=== PATIENT | male | born 1965 | race Two or more races ===

== ENCOUNTER 2020-05-08 06:20 | Day surgery (SDC) | payer MEDICAID ==
[~2020-05-08] VITALS: Ht 172.7 cm; Wt 90.7 kg
[~2020-05-08 06:20] MED LIST: AMLO5TAB15 PO; ASPI1TAB19 PO; ATOR20TA50 PO; CAR125T; CLOP75TA41 PO; GABA100C9 PO; INSU1INJ19 SC; ONDA-143 PO; TRAM50TA2 PO
[2020-05-08] MEDS ORDERED: SODIUM CHL 0.9% 50 ML ONE (07:59)
[2020-05-08] MEDS ORDERED: VERAPAMIL 2.5MG/ML INJ 2ML VIAL IV ONE (07:59)
[2020-05-08] MEDS ORDERED: MIDAZOLAM HCL 1MG/1ML-2 ML VIAL ONE (07:59)
[2020-05-08] MEDS ORDERED: fentaNYL CITRATE 100 MCG/2 ML VL ONE (07:59)
[2020-05-08] MEDS ORDERED: ANGIOMAX 250 MG VIAL IV ONE (07:59)
[2020-05-08] MEDS ORDERED: LIDOCAINE 2%HCL (LOCAL ANESTH.) INJ 20ML MDV ONE (08:12)
[2020-05-08] MEDS ORDERED: IODIXANOL 320MG/ML 100ML BTL IV ONE (08:12)
[2020-05-08] MEDS ORDERED: CLOPIDOGREL BISULFATE 75 MG TAB ONE (08:46)
[2020-05-08] MEDS ORDERED: ACETAMINOPHEN 500 MG TAB PO PRN (09:15)
[2020-05-08] MEDS ORDERED: HYDROcodone-ACET 5/325MG TAB PO PRN (09:15)
[2020-05-08] MEDS ORDERED: ONDANSETRON HCL 4 MG/2 ML VIAL IV PRN (09:15)
== END 2020-05-08 14:12 | disposition home or self-care (01) ==
LOC: CATH 06:20
PROVIDERS: ATTEND Internal Medicine
DX: R07.89 Other chest pain (principal); I25.10 Atherosclerotic heart disease of native coronary artery without angina pectoris; I11.0 Hypertensive heart disease with heart failure; E78.5 Hyperlipidemia, unspecified; E11.9 Type 2 diabetes mellitus without complications; I62.9 Nontraumatic intracranial hemorrhage, unspecified; F17.200 Nicotine dependence, unspecified, uncomplicated; Z11.59 Encounter for screening for other viral diseases; Z79.82 Long term (current) use of aspirin; Z79.899 Other long term (current) drug therapy; Z98.890 Other specified postprocedural states
CPT/HCPCS: 93005; 93458; C1725; C1760; C1769; C1874; C1887; C1894; C9600; J0583; J1644; J2250; J3010; J7030; Q9967; U0003; 99152; 99153

== ENCOUNTER 2022-03-12 07:27 | Inpatient (IN) | payer MEDICAID, OTHER ==
[~2022-03-12] VITALS: Ht 172.7 cm; Wt 91.6 kg
[~2022-03-12 07:27] MED LIST changes: +AMLO-489 PO; -AMLO5TAB15 PO; -CLOP75TA41 PO; +CLOP75TA70 PO
[2022-03-12] MEDS ORDERED: SODIUM CHLORIDE 0.9% 1,000 ML IV ONE (08:00)
[2022-03-12] MEDS ORDERED: PANTOPRAZOLE 40mg/50ML NS AE 50 ML IV ONE (08:30)
[2022-03-12 09:00] LABS: Basophils # (auto) 0 10 ^3/uL (0-0.2); Basophils % (auto) 0.2 % (0.0-2.0); Eosinophils # (auto) 0 10 ^3/uL (0-0.8)
[2022-03-12 09:03] LABS: Hematocrit 49.8 % (41.0-53.0); Lymphocytes # (auto) 0.9 10 ^3/uL (0.4-5.4); Lymphocytes % (auto) 5.7 % (10.0-50.0); Mean Corpuscular Hemoglobin 32.1 pg (28.0-32.0); Mean Corpuscular Hgb Conc. 36.2 g/dL (32.0-36.0); Mean Corpuscular Volume 88.8 fL (80.0-100.0); Monocytes # (auto) 0.5 10 ^3/uL (0-1.3); Monocytes % (auto) 3.1 % (0.0-12.0); Neutrophils # (auto) 14.6 10 ^3/uL (1.6-8.6); Nucleated Red Blood Cells % 0.4 %; Red Cell Distribution Width 14.9 % (11.8-14.3)
[2022-03-12 09:14] LABS: Albumin 3.9 g/dL (3.4-5.0); Calcium 9.6 mg/dL (8.5-10.1); Potassium 4.1 mmol/L (3.5-5.1)
[2022-03-12 09:19] LABS: BUN/Creatinine Ratio 37.1; Bilirubin, Total 1.2 mg/dL (0.2-1.0)
[2022-03-12 09:21] LABS: INR 1.06 (0.9-1.15); Partial Thromboplastin Time 26.3 sec (23.6-33.0)
[2022-03-12] MEDS ORDERED: MORPHINE SULFATE INJ 2 MG/ml SYRG IV ONE (09:30)
[2022-03-12] MEDS ORDERED: ONDANSETRON HCL 4 MG/2 ML VIAL IV ONE (09:30)
[2022-03-12] MEDS ORDERED: PATIENTS OWN MEDICATION (Clopidogrel Bisulfate (Clopidogrel) 75 MG) PO SCH (10:00)
[2022-03-12] MEDS ORDERED: SUCRALFATE 1 GM/10 ML ORAL SUSP PO ONE (10:45)
[2022-03-12 10:54] LABS: Amylase 34 U/L (25-115); Lipase 44 U/L (73-393)
[2022-03-12] MEDS: CLOPIDOGREL BISULFATE 75 MG TAB PO SCH (11:15)
[2022-03-12] MEDS: ASPirin-EC 81 mg tab PO SCH (11:16)
[2022-03-12] MEDS: CARVEDILOL 12.5 MG TAB PO SCH ×2 (11:18→22:45)
[2022-03-12 11:20] LABS: Urine Bacteria NONE SEEN /hpf (None Seen); Urine Blood Negative /uL (Negative); Urine Specific Gravity 1.035 (1.001-1.035); Urine WBC <1 /hpf (0 - 3)
[2022-03-12] MEDS ORDERED: MORPHINE SULFATE INJ 2 MG/ml SYRG IV PRN (12:15)
[2022-03-12] MEDS ORDERED: NITROGLYCERIN 0.4 MG SL TAB SL PRN (12:15)
[2022-03-12] MEDS ORDERED: DEXTROSE (50%) 50ML SYRG IV PRN (12:15)
[2022-03-12] MEDS: SODIUM CHLORIDE 0.9% 1,000 ML IV SCH ×2 (12:34→20:00)
[2022-03-12] MEDS: METOCLOPRAMIDE HCL 10 MG TAB PO SCH ×2 (14:11→22:45)
[2022-03-12] MEDS: metroNIDAZOLE 500MG/100ML 100 ML IV SCH ×2 (14:11→22:35)
[2022-03-12] MEDS: GABAPENTIN 300 MG CAP PO SCH ×2 (14:11→22:45)
[2022-03-12] MEDS: MORPHINE SULFATE 4 MG/ML SYR/VIAL IV PRN ×2 (14:24→20:27)
[2022-03-12] MEDS: ACCU-CHEK COMFORT CURVE STRIP VI SCH ×2 (16:36→20:33)
[2022-03-12] MEDS: InsuLIN REG 1unit/0.01ml Soln (100units/ml) SC SCH ×2 (16:41→20:34)
[2022-03-12 17:22] LABS: Amphetamine Screen, Urine NEGATIVE (NEGATIVE); Barbiturate Scree,Urine NEGATIVE (NEGATIVE); Benzodiazephine Screen, Urine NEGATIVE (NEGATIVE); Cannabinoid Screen, Urine POSITIVE (NEGATIVE); Cocaine Screen, Urine NEGATIVE (NEGATIVE); Opiate Scree,Urine NEGATIVE (NEGATIVE); Phencyclidine Screen, Urine NEGATIVE (NEGATIVE)
[2022-03-12] MEDS: ATORVASTATIN 20 MG TAB PO SCH (20:25)
[2022-03-12] MEDS: ONDANSETRON HCL 4 MG/2 ML VIAL IV PRN (20:27)
[2022-03-12] MEDS: INSULIN LANTUS (GLARGINE) 1 /0.01ml (100units/ml) SC SCH (20:34)
[2022-03-12 22:00] VITALS: BP 162/91
[2022-03-12] MEDS: PANTOPRAZOLE 40 MG/10 ML VIAL INJ IV SCH (22:35)
[2022-03-12] MEDS: LISINOPRIL 20 MG TAB PO SCH (22:45)
[2022-03-13] VITALS (7 sets, daily range): BP systolic 140–185; BP diastolic 81–101
[2022-03-13] MEDS: ACCU-CHEK COMFORT CURVE STRIP VI SCH ×6 (00:37→20:27)
[2022-03-13] MEDS: MORPHINE SULFATE INJ 2 MG/ml SYRG IV PRN ×5 (00:37→21:48)
[2022-03-13] MEDS: ONDANSETRON HCL 4 MG/2 ML VIAL IV PRN ×4 (00:38→21:49)
[2022-03-13] MEDS: InsuLIN REG 1unit/0.01ml Soln (100units/ml) SC SCH ×6 (00:38→20:37)
[2022-03-13] MEDS: metroNIDAZOLE 500MG/100ML 100 ML IV SCH ×2 (04:53→14:00)
[2022-03-13] MEDS: GABAPENTIN 300 MG CAP PO SCH ×3 (04:53→21:07)
[2022-03-13] MEDS: METOCLOPRAMIDE HCL 10 MG TAB PO SCH ×3 (04:53→21:06)
[2022-03-13] MEDS: INSULIN LANTUS (GLARGINE) 1 /0.01ml (100units/ml) SC SCH ×2 (05:09→21:14)
[2022-03-13 05:11] LABS: Basophils # (auto) 0 10 ^3/uL (0-0.2); Basophils % (auto) 0.3 % (0.0-2.0); Eosinophils # (auto) 0 10 ^3/uL (0-0.8); Eosinophils % (auto) 0.1 % (0.0-7.0); Hematocrit 45.5 % (41.0-53.0); Hemoglobin 15.9 g/dL (13.5-17.5); Lymphocytes # (auto) 1.2 10 ^3/uL (0.4-5.4); Lymphocytes % (auto) 12.7 % (10.0-50.0); Mean Corpuscular Hemoglobin 31.4 pg (28.0-32.0); Mean Corpuscular Volume 89.5 fL (80.0-100.0); Monocytes # (auto) 0.7 10 ^3/uL (0-1.3); Monocytes % (auto) 7.5 % (0.0-12.0); Neutrophils # (auto) 7.7 10 ^3/uL (1.6-8.6); Neutrophils % (auto) 79.4 % (37.0-80.0); Nucleated Red Blood Cells % 0.4 %; Red Blood Cells 5.09 10^6/uL (4.5-5.90); Red Cell Distribution Width 14.6 % (11.8-14.3); White Blood Cell 9.7 10^3/uL (4.4-10.8)
[2022-03-13 05:26] LABS: Albumin 3.3 g/dL (3.4-5.0); Calcium 8.9 mg/dL (8.5-10.1); Potassium 3.2 mmol/L (3.5-5.1)
[2022-03-13 05:29] LABS: BUN/Creatinine Ratio 37.5; Total Protein 6.7 g/dL (6.4-8.2)
[2022-03-13] MEDS: CLOPIDOGREL BISULFATE 75 MG TAB PO SCH (10:00)
[2022-03-13] MEDS: ASPirin-EC 81 mg tab PO SCH (10:00)
[2022-03-13] MEDS: PANTOPRAZOLE 40 MG/10 ML VIAL INJ IV SCH ×2 (10:10→21:08)
[2022-03-13] MEDS: LISINOPRIL 20 MG TAB PO SCH ×2 (10:11→21:07)
[2022-03-13] MEDS: CARVEDILOL 12.5 MG TAB PO SCH ×2 (10:11→21:08)
[2022-03-13] MEDS ORDERED: SODIUM CHLORIDE LOCK 10 ML ONE (13:19)
[2022-03-13] MEDS ORDERED: MIDAZOLAM HCL 5 MG/ML-1ML VIAL ONE (13:19)
[2022-03-13] MEDS ORDERED: LIDOCAINE VISCOUS 2% 15ML UD ONE (13:19)
[2022-03-13] MEDS ORDERED: fentaNYL CITRATE 100 MCG/2 ML VL ONE (13:20)
[2022-03-13] MEDS: SODIUM CHLORIDE 0.9% 1,000 ML IV SCH (14:55)
[2022-03-13] MEDS: SUCRALFATE 1 GM/10 ML ORAL SUSP PO SCH ×2 (17:44→21:06)
[2022-03-13] MEDS: NYSTATIN (MOUTH-THROAT) 500,000 UNITS/5 ML SUSP MT SCH ×2 (18:22→21:06)
[2022-03-13] MEDS: ATORVASTATIN 20 MG TAB PO SCH (18:29)
[2022-03-14] VITALS (7 sets, daily range): BP systolic 142–173; BP diastolic 74–90
[2022-03-14] MEDS: ACCU-CHEK COMFORT CURVE STRIP VI SCH ×5 (00:17→16:52)
[2022-03-14] MEDS: InsuLIN REG 1unit/0.01ml Soln (100units/ml) SC SCH ×5 (00:19→17:30)
[2022-03-14] MEDS: ONDANSETRON HCL 4 MG/2 ML VIAL IV PRN ×2 (02:11→06:13)
[2022-03-14] MEDS: MORPHINE SULFATE INJ 2 MG/ml SYRG IV PRN ×4 (02:12→14:55)
[2022-03-14] MEDS: SUCRALFATE 1 GM/10 ML ORAL SUSP PO SCH ×3 (06:06→16:51)
[2022-03-14] MEDS: GABAPENTIN 300 MG CAP PO SCH ×2 (06:06→14:16)
[2022-03-14] MEDS: NYSTATIN (MOUTH-THROAT) 500,000 UNITS/5 ML SUSP MT SCH ×3 (06:06→16:51)
[2022-03-14] MEDS: METOCLOPRAMIDE HCL 10 MG TAB PO SCH ×2 (06:06→14:17)
[2022-03-14] MEDS: INSULIN LANTUS (GLARGINE) 1 /0.01ml (100units/ml) SC SCH (06:21)
[2022-03-14] MEDS: hydrALAZINE HCL 10 MG TAB PO PRN ×2 (07:11→14:17)
[2022-03-14] MEDS: PANTOPRAZOLE 40 MG/10 ML VIAL INJ IV SCH (09:47)
[2022-03-14] MEDS: CLOPIDOGREL BISULFATE 75 MG TAB PO SCH (09:47)
[2022-03-14] MEDS: ASPirin-EC 81 mg tab PO SCH (09:48)
[2022-03-14] MEDS: LISINOPRIL 20 MG TAB PO SCH (09:48)
[2022-03-14] MEDS: CARVEDILOL 12.5 MG TAB PO SCH (09:48)
[2022-03-14] MEDS ORDERED: PANT40T PO (15:08)
[2022-03-14] MEDS ORDERED: IBUP600T27 PO (15:08)
[2022-03-14] MEDS ORDERED: GABA100C9 PO (15:08)
[2022-03-14] MEDS ORDERED: NYS5LQ MT (15:08)
[2022-03-14] MEDS ORDERED: SUCR1SUS10 PO (15:08)
[2022-03-14] MEDS: ATORVASTATIN 20 MG TAB PO SCH (16:51)
== END 2022-03-14 19:10 | disposition home or self-care (01) | DRG 241 ==
LOC: EDBD 07:27 → ER 07:27 → OVERFLOW 12:02 → CENTRAL 18:46
PROVIDERS: ADMIT Hospitalist; ATTEND Hospitalist
PROC: 0DB68ZX Excision of Stomach, Via Natural or Artificial Opening Endoscopic, Diagnostic (ICD-10-PCS; 2022-03-13)
PROC: 0DB58ZX Excision of Esophagus, Via Natural or Artificial Opening Endoscopic, Diagnostic (ICD-10-PCS; 2022-03-13)
PROC: 0DB98ZX Excision of Duodenum, Via Natural or Artificial Opening Endoscopic, Diagnostic (ICD-10-PCS; principal; 2022-03-13 13:30)
DX: K29.71 Gastritis, unspecified, with bleeding (principal); K22.11 Ulcer of esophagus with bleeding; K76.0 Fatty (change of) liver, not elsewhere classified; Z95.5 Presence of coronary angioplasty implant and graft; K29.80 Duodenitis without bleeding; K29.91 Gastroduodenitis, unspecified, with bleeding; E11.9 Type 2 diabetes mellitus without complications; I16.0 Hypertensive urgency; I25.10 Atherosclerotic heart disease of native coronary artery without angina pectoris; K44.9 Diaphragmatic hernia without obstruction or gangrene; E78.5 Hyperlipidemia, unspecified; Z20.822 Contact with and (suspected) exposure to COVID-19; K29.90 Gastroduodenitis, unspecified, without bleeding; K57.30 Diverticulosis of large intestine without perforation or abscess without bleeding; Z83.3 Family history of diabetes mellitus; Z82.49 Family history of ischemic heart disease and other diseases of the circulatory system; Z87.11 Personal history of peptic ulcer disease
CPT/HCPCS: 36415; 43239; 74176; 80053; 80307; 81001; 82150; 82962; 83690; 84484; 85025; 85610; 85730; 93005; 96361; 96365; 96367; 96372; 96375; C9113; G0378; J1815; J2250; J2405; J3490

== ENCOUNTER 2022-08-28 00:11 | Inpatient (IN) | payer MEDICAID ==
[~2022-08-28] VITALS: Ht 177.8 cm; Wt 96.7 kg
[~2022-08-28 00:11] MED LIST changes: -CAR125T; +CAR125T PO; +IBUP600T27 PO; +NYS5LQ MT; +PANT40T PO; +SUCR1SUS10 PO; -TRAM50TA2 PO
[2022-08-28] MEDS ORDERED: SODIUM CHLORIDE 0.9% 250 ML IV ONE (00:45)
[2022-08-28] MEDS ORDERED: ONDANSETRON HCL 4 MG/2 ML VIAL IV ONE (01:00)
[2022-08-28 01:36] LABS: Basophils # (auto) 0 10 ^3/uL (0-0.2); Basophils % (auto) 0.5 % (0.0-2.0); Eosinophils # (auto) 0 10 ^3/uL (0-0.8); Eosinophils % (auto) 0.3 % (0.0-7.0); Hematocrit 49.4 % (41.0-53.0); Hemoglobin 17.7 g/dL (13.5-17.5); Lymphocytes # (auto) 1.3 10 ^3/uL (0.4-5.4); Lymphocytes % (auto) 16.3 % (10.0-50.0); Mean Corpuscular Hemoglobin 32.2 pg (28.0-32.0); Mean Corpuscular Hgb Conc. 35.9 g/dL (32.0-36.0); Mean Corpuscular Volume 89.7 fL (80.0-100.0); Monocytes # (auto) 0.6 10 ^3/uL (0-1.3); Monocytes % (auto) 7.6 % (0.0-12.0); Neutrophils # (auto) 5.9 10 ^3/uL (1.6-8.6); Neutrophils % (auto) 75.3 % (37.0-80.0); Nucleated Red Blood Cells % 0.1 %; Red Cell Distribution Width 13.6 % (11.8-14.3); White Blood Cell 7.9 10^3/uL (4.4-10.8)
[2022-08-28 02:00] LABS: Albumin 3.8 g/dL (3.4-5.0); BUN/Creatinine Ratio 29.2; Bilirubin, Total 1.3 mg/dL (0.2-1.0); Calcium 9.5 mg/dL (8.5-10.1); Potassium 4.1 mmol/L (3.5-5.1); Total Protein 7.5 g/dL (6.4-8.2)
[2022-08-28] MEDS ORDERED: MORPHINE SULFATE 4 MG/ML SYR/VIAL IM ONE (02:00)
[2022-08-28 02:10] LABS: INR 1.04 (0.9-1.15); Partial Thromboplastin Time 27.9 sec (24.6-33.4)
[2022-08-28 02:51] LABS: Urine Bacteria NONE SEEN /hpf (None Seen); Urine Blood Negative /uL (Negative); Urine Specific Gravity 1.039 (1.001-1.035); Urine WBC 1 /hpf (0 - 3)
[2022-08-28] MEDS ORDERED: amLODIPine BESYLATE 5 MG TAB PO SCH (10:00)
[2022-08-28] MEDS ORDERED: DOCUSATE SOD 100 MG CAP PO PRN (11:30)
[2022-08-28] MEDS: SODIUM CHLORIDE 0.9% 1,000 ML IV SCH ×2 (12:02→21:12)
[2022-08-28] MEDS: ONDANSETRON HCL 4 MG/2 ML VIAL IV PRN ×2 (12:02→17:00)
[2022-08-28] MEDS: MORPHINE SULFATE INJ 2 MG/ml SYRG IV PRN ×3 (12:05→21:11)
[2022-08-28 15:00] VITALS: BP 173/95
[2022-08-28 16:31] VITALS: BP 173/95
[2022-08-28] MEDS ORDERED: hydrALAZINE HCL 20 MG/ML VL IV PRN (16:45)
[2022-08-28] MEDS ORDERED: CARVEDILOL 12.5 MG TAB PO ONE (17:00)
[2022-08-28] MEDS ORDERED: amLODIPine BESYLATE 5 MG TAB PO ONE ×2 (17:00→17:15)
[2022-08-28] MEDS: PANTOPRAZOLE 40 MG TAB PO SCH (17:13)
[2022-08-28] MEDS: SUCRALFATE 1 GM/10 ML ORAL SUSP PO SCH ×2 (17:13→21:54)
[2022-08-28] MEDS ORDERED: DEXTROSE (50%) 50ML SYRG IV PRN ×2 (17:15→18:00)
[2022-08-28 17:55] VITALS: BP 136/100
[2022-08-28] MEDS ORDERED: ACCU-CHEK COMFORT CURVE STRIP VI ONE (18:00)
[2022-08-28] MEDS ORDERED: NYSTATIN (MOUTH-THROAT) 500,000 UNITS/5 ML SUSP MT SCH (18:00)
[2022-08-28] MEDS: InsuLIN REG 1unit/0.01ml Soln (100units/ml) SC SCH ×2 (18:13→21:52)
[2022-08-28] MEDS: ACCU-CHEK COMFORT CURVE STRIP VI SCH ×2 (18:13→21:51)
[2022-08-28] MEDS: ATORVASTATIN 20 MG TAB PO SCH (18:13)
[2022-08-28 20:00] VITALS: BP 163/85
[2022-08-28] MEDS: GABAPENTIN 100 MG CAP PO SCH (21:47)
[2022-08-28] MEDS: CARVEDILOL 12.5 MG TAB PO SCH (21:53)
[2022-08-28 22:00] VITALS: BP 163/85
[2022-08-28] MEDS ORDERED: InsuLIN REG 1unit/0.01ml Soln (100units/ml) SC SCH (22:00)
[2022-08-28] MEDS ORDERED: ACCU-CHEK COMFORT CURVE STRIP VI SCH (22:00)
[2022-08-29] MEDS: SODIUM CHLORIDE 0.9% 1,000 ML IV SCH ×3 (04:20→21:14)
[2022-08-29 05:00] VITALS: BP 167/91
[2022-08-29] MEDS: MORPHINE SULFATE INJ 2 MG/ml SYRG IV PRN ×5 (05:04→23:05)
[2022-08-29] MEDS: ONDANSETRON HCL 4 MG/2 ML VIAL IV PRN ×4 (05:04→18:40)
[2022-08-29] MEDS: GABAPENTIN 100 MG CAP PO SCH ×3 (06:15→21:15)
[2022-08-29] MEDS: PANTOPRAZOLE 40 MG TAB PO SCH ×2 (06:16→18:32)
[2022-08-29] MEDS: SUCRALFATE 1 GM/10 ML ORAL SUSP PO SCH ×4 (06:16→21:14)
[2022-08-29] MEDS: InsuLIN REG 1unit/0.01ml Soln (100units/ml) SC SCH ×4 (06:23→22:42)
[2022-08-29 06:24] LABS: Basophils # (auto) 0 10 ^3/uL (0-0.2); Basophils % (auto) 0.5 % (0.0-2.0); Eosinophils # (auto) 0.1 10 ^3/uL (0-0.8); Eosinophils % (auto) 1.9 % (0.0-7.0); Hematocrit 41.9 % (41.0-53.0); Hemoglobin 14.9 g/dL (13.5-17.5); Lymphocytes # (auto) 1.3 10 ^3/uL (0.4-5.4); Lymphocytes % (auto) 27.1 % (10.0-50.0); Mean Corpuscular Hemoglobin 31.3 pg (28.0-32.0); Mean Corpuscular Hgb Conc. 35.6 g/dL (32.0-36.0); Monocytes # (auto) 0.4 10 ^3/uL (0-1.3); Monocytes % (auto) 8.1 % (0.0-12.0); Neutrophils # (auto) 2.9 10 ^3/uL (1.6-8.6); Neutrophils % (auto) 62.4 % (37.0-80.0); Nucleated Red Blood Cells % 0.1 %; Red Blood Cells 4.77 10^6/uL (4.5-5.90); Red Cell Distribution Width 12.9 % (11.8-14.3); White Blood Cell 4.7 10^3/uL (4.4-10.8)
[2022-08-29] MEDS: ACCU-CHEK COMFORT CURVE STRIP VI SCH ×4 (06:25→22:43)
[2022-08-29 07:18] LABS: Albumin 2.9 g/dL (3.4-5.0); BUN/Creatinine Ratio 29.6; Bilirubin, Total 1.1 mg/dL (0.2-1.0); Calcium 8.4 mg/dL (8.5-10.1); Potassium 3.9 mmol/L (3.5-5.1); Total Protein 5.4 g/dL (6.4-8.2)
[2022-08-29 08:00] VITALS: BP 154/78
[2022-08-29 09:00] VITALS: BP 154/78
[2022-08-29] MEDS: amLODIPine BESYLATE 5 MG TAB PO SCH (09:31)
[2022-08-29] MEDS: CARVEDILOL 12.5 MG TAB PO SCH ×2 (09:41→21:15)
[2022-08-29] MEDS ORDERED: PANTOPRAZOLE 40 MG/10 ML VIAL INJ IV SCH (10:00)
[2022-08-29 13:00] VITALS: BP 131/79
[2022-08-29] MEDS: ATORVASTATIN 20 MG TAB PO SCH (18:39)
[2022-08-29] MEDS: GABAPENTIN 400 MG CAP PO SCH (22:00)
[2022-08-29 22:23] VITALS: BP 139/80
[2022-08-30] MEDS: MORPHINE SULFATE INJ 2 MG/ml SYRG IV PRN ×3 (03:16→12:31)
[2022-08-30 04:57] VITALS: BP 123/75
[2022-08-30 05:32] LABS: Basophils # (auto) 0 10 ^3/uL (0-0.2); Basophils % (auto) 0.6 % (0.0-2.0); Eosinophils # (auto) 0.1 10 ^3/uL (0-0.8); Eosinophils % (auto) 2.7 % (0.0-7.0); Hematocrit 38.8 % (41.0-53.0); Hemoglobin 13.9 g/dL (13.5-17.5); Lymphocytes # (auto) 1.7 10 ^3/uL (0.4-5.4); Mean Corpuscular Hemoglobin 31.4 pg (28.0-32.0); Mean Corpuscular Hgb Conc. 35.9 g/dL (32.0-36.0); Mean Corpuscular Volume 87.5 fL (80.0-100.0); Monocytes # (auto) 0.4 10 ^3/uL (0-1.3); Monocytes % (auto) 8.3 % (0.0-12.0); Neutrophils # (auto) 2.5 10 ^3/uL (1.6-8.6); Neutrophils % (auto) 52.4 % (37.0-80.0); Nucleated Red Blood Cells % 0.1 %; Red Blood Cells 4.43 10^6/uL (4.5-5.90); Red Cell Distribution Width 13.2 % (11.8-14.3); White Blood Cell 4.7 10^3/uL (4.4-10.8)
[2022-08-30 05:48] LABS: BUN/Creatinine Ratio 25.8; Calcium 8.3 mg/dL (8.5-10.1); Potassium 3.7 mmol/L (3.5-5.1)
[2022-08-30] MEDS: SODIUM CHLORIDE 0.9% 1,000 ML IV SCH ×2 (05:55→14:22)
[2022-08-30] MEDS: GABAPENTIN 400 MG CAP PO SCH ×2 (06:00→16:14)
[2022-08-30] MEDS: InsuLIN REG 1unit/0.01ml Soln (100units/ml) SC SCH ×3 (06:16→17:00)
[2022-08-30] MEDS: ACCU-CHEK COMFORT CURVE STRIP VI SCH ×3 (06:16→17:00)
[2022-08-30] MEDS: PANTOPRAZOLE 40 MG TAB PO SCH ×2 (06:16→17:00)
[2022-08-30] MEDS: SUCRALFATE 1 GM/10 ML ORAL SUSP PO SCH ×3 (06:17→17:00)
[2022-08-30 08:00] VITALS: BP 164/97
[2022-08-30] MEDS: ONDANSETRON HCL 4 MG/2 ML VIAL IV PRN ×2 (08:07→12:30)
[2022-08-30 09:00] VITALS: BP 164/97
[2022-08-30] MEDS: amLODIPine BESYLATE 5 MG TAB PO SCH (12:19)
[2022-08-30] MEDS: CARVEDILOL 12.5 MG TAB PO SCH (12:21)
[2022-08-30 13:00] VITALS: BP 158/89
[2022-08-30 17:00] VITALS: BP 164/85
[2022-08-30 17:47] VITALS: BP 141/80
[2022-08-30] MEDS: ATORVASTATIN 20 MG TAB PO SCH (18:00)
== END 2022-08-30 18:50 | disposition home or self-care (01) | DRG 253 ==
LOC: EDBD 00:11 → ER 00:11 → OVERFLOW 11:23 → EAST 15:24
PROVIDERS: ADMIT Nurse Practitioner Family; ATTEND Internal Medicine
DX: K92.0 Hematemesis (principal); E11.40 Type 2 diabetes mellitus with diabetic neuropathy, unspecified; E11.65 Type 2 diabetes mellitus with hyperglycemia; I16.0 Hypertensive urgency; K80.20 Calculus of gallbladder without cholecystitis without obstruction; I25.10 Atherosclerotic heart disease of native coronary artery without angina pectoris; E78.5 Hyperlipidemia, unspecified; F12.90 Cannabis use, unspecified, uncomplicated; G89.29 Other chronic pain; I10 Essential (primary) hypertension; Z20.822 Contact with and (suspected) exposure to COVID-19; Z79.4 Long term (current) use of insulin; Z87.11 Personal history of peptic ulcer disease; Z95.5 Presence of coronary angioplasty implant and graft
CPT/HCPCS: 36415; 76705; 78264; 80048; 80053; 80320; 81001; 83036; 85025; 85610; 85730; 86850; 86900; 86901; 87426; 93005; 96361; 96374; 96375; 99291; 99292; G0378; J1815; J2405

== ENCOUNTER 2022-10-08 02:35 | Inpatient (IN) | payer MEDICAID ==
[~2022-10-08] VITALS: Ht 175.3 cm; Wt 94.3 kg
[~2022-10-08 02:35] MED LIST changes: -IBUP600T27 PO
[2022-10-08] MEDS ORDERED: METOCLOPRAMIDE HCL 5MG/ml INJ 2ml VIAL IV ONE (02:45)
[2022-10-08] MEDS ORDERED: SODIUM CHLORIDE 0.9% 1,000 ML IV ONE (02:45)
[2022-10-08] MEDS ORDERED: PANTOPRAZOLE 80 MG in SODIUM CHL 0.9% 100 ML IV ONE (02:45)
[2022-10-08] MEDS ORDERED: OCTREOTIDE ACETATE 100 MCG in SODIUM CHL 0.9% 50 ML IV ONE (02:45)
[2022-10-08] MEDS ORDERED: PANTOPRAZOLE 40mg/50ML NS AE 50 ML IV ONE (02:45)
[2022-10-08] MEDS ORDERED: IOHEXOL 350 MG/ML 100ML IJ ONE (03:14)
[2022-10-08 03:27] LABS: Basophils # (auto) 0 10 ^3/uL (0-0.2); Basophils % (auto) 0.2 % (0.0-2.0); Eosinophils # (auto) 0 10 ^3/uL (0-0.8); Hematocrit 48.9 % (41.0-53.0); Lymphocytes # (auto) 0.6 10 ^3/uL (0.4-5.4); Lymphocytes % (auto) 4.9 % (10.0-50.0); Mean Corpuscular Hemoglobin 31.6 pg (28.0-32.0); Mean Corpuscular Hgb Conc. 34.7 g/dL (32.0-36.0); Mean Corpuscular Volume 90.9 fL (80.0-100.0); Monocytes # (auto) 0.3 10 ^3/uL (0-1.3); Monocytes % (auto) 2.7 % (0.0-12.0); Neutrophils # (auto) 10.7 10 ^3/uL (1.6-8.6); Neutrophils % (auto) 92.2 % (37.0-80.0); Nucleated Red Blood Cells % 0.2 %; Red Blood Cells 5.38 10^6/uL (4.5-5.90); Red Cell Distribution Width 14.4 % (11.8-14.3); White Blood Cell 11.6 10^3/uL (4.4-10.8)
[2022-10-08] MEDS ORDERED: PANTOPRAZOLE 40 MG/10 ML VIAL INJ IV ONE (03:33)
[2022-10-08 03:34] LABS: Albumin 4.1 g/dL (3.4-5.0); BUN/Creatinine Ratio 26.9; Calcium 9.4 mg/dL (8.5-10.1); Magnesium 2.5 mg/dL (1.6-2.6); Potassium 3.5 mmol/L (3.5-5.1)
[2022-10-08 03:35] LABS: INR 1.01 (0.9-1.15); Partial Thromboplastin Time 26.8 sec (24.6-33.4)
[2022-10-08 03:36] LABS: Bilirubin, Total 1.1 mg/dL (0.2-1.0); Total Protein 7.6 g/dL (6.4-8.2)
[2022-10-08] MEDS ORDERED: OCTREOTIDE ACETATE 100 MCG/ML VL ONE (03:44)
[2022-10-08] MEDS ORDERED: OCTREOTIDE ACETATE 500 MCG/ML VL ONE ×2 (03:44→23:31)
[2022-10-08] MEDS: OCTREOTIDE ACETATE 500 MCG in SODIUM CHL 0.9% 99 ML IV SCH ×3 (04:00→23:53)
[2022-10-08] MEDS ORDERED: ONDANSETRON HCL 4 MG/2 ML VIAL IV ONE (04:00)
[2022-10-08] MEDS ORDERED: MORPHINE SULFATE 4 MG/ML SYR/VIAL IV ONE (04:00)
[2022-10-08] MEDS ORDERED: LACTATED RINGER'S 2,000 ML IV ONE (05:00)
[2022-10-08] MEDS ORDERED: cefTRIAXone 1GM/50ML D5W 50 ML IV ONE (05:00)
[2022-10-08] MEDS ORDERED: InsuLIN REG 1unit/0.01ml Soln (100units/ml) IV ONE (05:00)
[2022-10-08] MEDS ORDERED: MAALOX PLUS or MAALOX 30 ML PO PRN (06:15)
[2022-10-08] MEDS ORDERED: TEMAZEPAM 15 MG CAP PO PRN (06:15)
[2022-10-08] MEDS ORDERED: DOCUSATE SOD 100 MG CAP PO PRN (06:15)
[2022-10-08] MEDS ORDERED: DEXTROSE (50%) 50ML SYRG IV PRN (06:15)
[2022-10-08] MEDS ORDERED: ACETAMINOPHEN 325 MG TAB PO PRN (06:15)
[2022-10-08] MEDS: ACCU-CHEK COMFORT CURVE STRIP VI SCH ×4 (07:00→23:24)
[2022-10-08] MEDS: InsuLIN REG 1unit/0.01ml Soln (100units/ml) SC SCH ×4 (07:04→23:52)
[2022-10-08 07:15] LABS: Basophils # (auto) 0 10 ^3/uL (0-0.2); Basophils % (auto) 0.1 % (0.0-2.0); Eosinophils # (auto) 0 10 ^3/uL (0-0.8); Hematocrit 43.2 % (41.0-53.0); Hemoglobin 15.4 g/dL (13.5-17.5); Lymphocytes # (auto) 0.7 10 ^3/uL (0.4-5.4); Lymphocytes % (auto) 5.9 % (10.0-50.0); Mean Corpuscular Hemoglobin 31.7 pg (28.0-32.0); Mean Corpuscular Hgb Conc. 35.5 g/dL (32.0-36.0); Mean Corpuscular Volume 89.2 fL (80.0-100.0); Monocytes # (auto) 0.4 10 ^3/uL (0-1.3); Monocytes % (auto) 3.3 % (0.0-12.0); Neutrophils # (auto) 10.6 10 ^3/uL (1.6-8.6); Neutrophils % (auto) 90.7 % (37.0-80.0); Nucleated Red Blood Cells % 0.1 %; Red Blood Cells 4.84 10^6/uL (4.5-5.90); Red Cell Distribution Width 14.5 % (11.8-14.3); White Blood Cell 11.7 10^3/uL (4.4-10.8)
[2022-10-08] MEDS: SODIUM CHLORIDE 0.9% 1,000 ML IV SCH ×2 (07:21→16:39)
[2022-10-08 07:37] LABS: Potassium 3.8 mmol/L (3.5-5.1)
[2022-10-08] MEDS: ONDANSETRON HCL 4 MG/2 ML VIAL IV PRN ×4 (07:38→23:54)
[2022-10-08 07:53] LABS: BUN/Creatinine Ratio 26.1
[2022-10-08] MEDS: MORPHINE SULFATE INJ 2 MG/ml SYRG IV PRN ×4 (07:55→23:54)
[2022-10-08] MEDS: PANTOPRAZOLE 40 MG/10 ML VIAL INJ IV SCH ×2 (09:36→23:52)
[2022-10-08 14:19] LABS: Urine Bacteria NONE SEEN /hpf (None Seen); Urine Blood Negative /uL (Negative); Urine WBC 1 /hpf (0 - 3)
[2022-10-08] MEDS ORDERED: amLODIPine BESYLATE 5 MG TAB PO ONE (17:45)
[2022-10-08] MEDS: HYDROcodone-ACET 5/325MG TAB PO PRN (20:51)
[2022-10-08] MEDS ORDERED: hydrALAZINE HCL 20 MG/ML VL IV PRN (21:45)
[2022-10-08] MEDS ORDERED: amLODIPine BESYLATE 5 MG TAB PO SCH (22:00)
[2022-10-09] MEDS ORDERED: hydrALAZINE HCL 20 MG/ML VL IV ONE (02:00)
[2022-10-09] MEDS: MORPHINE SULFATE INJ 2 MG/ml SYRG IV PRN ×4 (05:03→21:45)
[2022-10-09] MEDS: ONDANSETRON HCL 4 MG/2 ML VIAL IV PRN ×4 (05:03→21:44)
[2022-10-09] MEDS: cefTRIAXone 1GM/50ML D5W 50 ML IV SCH (05:08)
[2022-10-09] MEDS: SODIUM CHLORIDE 0.9% 1,000 ML IV SCH ×3 (05:11→22:59)
[2022-10-09] MEDS: ACCU-CHEK COMFORT CURVE STRIP VI SCH ×4 (07:10→22:12)
[2022-10-09] MEDS: InsuLIN REG 1unit/0.01ml Soln (100units/ml) SC SCH ×4 (07:10→22:14)
[2022-10-09] MEDS: LORazepam 0.5 MG TAB PO PRN (08:39)
[2022-10-09] MEDS: OCTREOTIDE ACETATE 500 MCG in SODIUM CHL 0.9% 99 ML IV SCH ×2 (08:59→19:49)
[2022-10-09] MEDS: hydrALAZINE HCL 20 MG/ML VL IV PRN ×2 (09:00→16:48)
[2022-10-09] MEDS: PANTOPRAZOLE 40 MG/10 ML VIAL INJ IV SCH ×2 (10:42→21:44)
[2022-10-09] MEDS ORDERED: SODIUM CHLORIDE LOCK 10 ML ONE (15:08)
[2022-10-09] MEDS ORDERED: LIDOCAINE VISCOUS 2% 15ML UD ONE (15:08)
[2022-10-09] MEDS: fentaNYL CITRATE 100 MCG/2 ML VL ONE ×2 (15:22→15:26)
[2022-10-09] MEDS: diphenhdrAMINE HCL 50 MG/1 ML VL ONE ×2 (15:22→15:24)
[2022-10-09] MEDS: MIDAZOLAM HCL 2MG/2ML 2ml VIAL (1mg/ml) ONE ×2 (15:22→15:38)
[2022-10-09] MEDS: SUCRALFATE 1 GM/10 ML ORAL SUSP PO SCH ×2 (16:45→21:44)
[2022-10-09 17:48] VITALS: BP 163/86
[2022-10-09] MEDS ORDERED: ALBU108A5 PO (19:30)
[2022-10-09] MEDS ORDERED: LISI-287 PO (19:30)
[2022-10-09] MEDS ORDERED: INSU100I44 SC (19:30)
[2022-10-09] MEDS ORDERED: TRAM50TA2 PO (19:30)
[2022-10-09] MEDS ORDERED: ISOS1TAB28 PO (19:30)
[2022-10-09] MEDS ORDERED: GABA800T97 PO (19:30)
[2022-10-09] MEDS ORDERED: SUCR1SUS10 PO (19:30)
[2022-10-09] MEDS ORDERED: PANT40TA2 PO (19:30)
[2022-10-09] MEDS ORDERED: ERTU15TA PO (19:30)
[2022-10-09 22:00] VITALS: BP 198/112
[2022-10-09] MEDS ORDERED: hydrALAZINE HCL 20 MG/ML VL IV PRN (23:15)
[2022-10-10] MEDS: MORPHINE SULFATE INJ 2 MG/ml SYRG IV PRN ×5 (03:15→22:30)
[2022-10-10] MEDS: ONDANSETRON HCL 4 MG/2 ML VIAL IV PRN ×5 (03:16→22:29)
[2022-10-10 05:00] VITALS: BP 201/99
[2022-10-10] MEDS: cefTRIAXone 1GM/50ML D5W 50 ML IV SCH (05:24)
[2022-10-10] MEDS: OCTREOTIDE ACETATE 500 MCG in SODIUM CHL 0.9% 99 ML IV SCH ×2 (05:24→17:44)
[2022-10-10] MEDS: hydrALAZINE HCL 20 MG/ML VL IV PRN (05:35)
[2022-10-10] MEDS: ACCU-CHEK COMFORT CURVE STRIP VI SCH ×4 (06:34→22:19)
[2022-10-10] MEDS: SUCRALFATE 1 GM/10 ML ORAL SUSP PO SCH ×4 (06:35→22:29)
[2022-10-10] MEDS: InsuLIN REG 1unit/0.01ml Soln (100units/ml) SC SCH ×4 (06:35→22:21)
[2022-10-10] MEDS: PANTOPRAZOLE 40 MG/10 ML VIAL INJ IV SCH ×2 (08:34→22:31)
[2022-10-10 08:59] VITALS: BP 180/98
[2022-10-10] MEDS: amLODIPine BESYLATE 5 MG TAB PO SCH (12:56)
[2022-10-10 12:57] VITALS: BP 181/104
[2022-10-10 17:00] VITALS: BP 161/93
[2022-10-10 22:00] VITALS: BP 180/91
[2022-10-11] MEDS: ONDANSETRON HCL 4 MG/2 ML VIAL IV PRN ×5 (02:47→19:54)
[2022-10-11] MEDS: MORPHINE SULFATE INJ 2 MG/ml SYRG IV PRN ×5 (03:03→19:56)
[2022-10-11] MEDS: SODIUM CHLORIDE 0.9% 1,000 ML IV SCH ×2 (04:15→14:15)
[2022-10-11 05:00] VITALS: BP 195/102
[2022-10-11] MEDS: OCTREOTIDE ACETATE 500 MCG in SODIUM CHL 0.9% 99 ML IV SCH ×2 (05:01→11:16)
[2022-10-11] MEDS: hydrALAZINE HCL 20 MG/ML VL IV PRN ×3 (05:02→19:55)
[2022-10-11] MEDS: cefTRIAXone 1GM/50ML D5W 50 ML IV SCH (05:10)
[2022-10-11] MEDS: ACCU-CHEK COMFORT CURVE STRIP VI SCH ×4 (06:21→21:21)
[2022-10-11] MEDS: SUCRALFATE 1 GM/10 ML ORAL SUSP PO SCH ×4 (06:21→21:21)
[2022-10-11] MEDS: InsuLIN REG 1unit/0.01ml Soln (100units/ml) SC SCH ×4 (06:22→21:39)
[2022-10-11] MEDS: amLODIPine BESYLATE 5 MG TAB PO SCH (08:26)
[2022-10-11] MEDS: PANTOPRAZOLE 40 MG/10 ML VIAL INJ IV SCH ×2 (08:27→21:21)
[2022-10-11 09:00] VITALS: BP 178/92
[2022-10-11 13:00] VITALS: BP 170/88
[2022-10-11] MEDS: NYSTATIN (MOUTH-THROAT) 500,000 UNITS/5 ML SUSP MT SCH ×2 (17:30→21:21)
[2022-10-11] MEDS: LORazepam 0.5 MG TAB PO PRN (22:30)
[2022-10-12] VITALS (7 sets, daily range): BP systolic 135–171; BP diastolic 79–92
[2022-10-12] MEDS: SODIUM CHLORIDE 0.9% 1,000 ML IV SCH ×2 (00:15→10:15)
[2022-10-12] MEDS: ONDANSETRON HCL 4 MG/2 ML VIAL IV PRN ×5 (00:17→19:47)
[2022-10-12] MEDS: MORPHINE SULFATE INJ 2 MG/ml SYRG IV PRN ×5 (00:18→19:49)
[2022-10-12] MEDS: hydrALAZINE HCL 20 MG/ML VL IV PRN ×3 (00:19→11:19)
[2022-10-12] MEDS: OCTREOTIDE ACETATE 500 MCG in SODIUM CHL 0.9% 99 ML IV SCH ×4 (00:38→22:33)
[2022-10-12] MEDS: cefTRIAXone 1GM/50ML D5W 50 ML IV SCH (04:31)
[2022-10-12] MEDS: NYSTATIN (MOUTH-THROAT) 500,000 UNITS/5 ML SUSP MT SCH ×4 (05:05→20:59)
[2022-10-12] MEDS: SUCRALFATE 1 GM/10 ML ORAL SUSP PO SCH ×4 (06:23→20:59)
[2022-10-12] MEDS: ACCU-CHEK COMFORT CURVE STRIP VI SCH ×4 (06:45→21:01)
[2022-10-12] MEDS: InsuLIN REG 1unit/0.01ml Soln (100units/ml) SC SCH ×4 (06:53→21:20)
[2022-10-12] MEDS: amLODIPine BESYLATE 5 MG TAB PO SCH (09:01)
[2022-10-12] MEDS: PANTOPRAZOLE 40 MG/10 ML VIAL INJ IV SCH ×2 (09:01→21:00)
[2022-10-12] MEDS: GABAPENTIN 400 MG CAP PO SCH ×2 (15:15→21:00)
[2022-10-12] MEDS: hydrALAZINE HCL 25 MG TAB PO PRN (17:02)
[2022-10-12] MEDS: HYDROcodone-ACET 5/325MG TAB PO PRN (18:43)
[2022-10-13] VITALS (7 sets, daily range): BP systolic 138–162; BP diastolic 75–95
[2022-10-13] MEDS: ONDANSETRON HCL 4 MG/2 ML VIAL IV PRN ×5 (00:24→20:13)
[2022-10-13] MEDS: MORPHINE SULFATE INJ 2 MG/ml SYRG IV PRN ×5 (00:27→20:15)
[2022-10-13] MEDS: hydrALAZINE HCL 25 MG TAB PO PRN ×2 (01:07→08:51)
[2022-10-13] MEDS: HYDROcodone-ACET 5/325MG TAB PO PRN ×2 (03:52→17:31)
[2022-10-13] MEDS: cefTRIAXone 1GM/50ML D5W 50 ML IV SCH (06:00)
[2022-10-13] MEDS: GABAPENTIN 400 MG CAP PO SCH ×3 (06:01→21:23)
[2022-10-13] MEDS: NYSTATIN (MOUTH-THROAT) 500,000 UNITS/5 ML SUSP MT SCH ×4 (06:01→21:22)
[2022-10-13] MEDS: SUCRALFATE 1 GM/10 ML ORAL SUSP PO SCH ×4 (06:26→21:22)
[2022-10-13] MEDS: ACCU-CHEK COMFORT CURVE STRIP VI SCH ×4 (06:26→21:45)
[2022-10-13] MEDS: InsuLIN REG 1unit/0.01ml Soln (100units/ml) SC SCH ×4 (06:28→21:44)
[2022-10-13] MEDS: PANTOPRAZOLE 40 MG/10 ML VIAL INJ IV SCH ×2 (08:47→21:22)
[2022-10-13] MEDS: amLODIPine BESYLATE 5 MG TAB PO SCH (08:50)
[2022-10-13] MEDS: OCTREOTIDE ACETATE 500 MCG in SODIUM CHL 0.9% 99 ML IV SCH (12:06)
[2022-10-13] MEDS: hydrALAZINE HCL 25 MG TAB PO SCH ×2 (12:17→17:31)
[2022-10-13 13:48] LABS: Calcium 8.2 mg/dL (8.5-10.1); Potassium 3.2 mmol/L (3.5-5.1)
[2022-10-13 13:51] LABS: BUN/Creatinine Ratio 15.9
[2022-10-13] MEDS: INSULIN LANTUS (GLARGINE) 1 /0.01ml (100units/ml) SC SCH (21:44)
[2022-10-14] MEDS: ONDANSETRON HCL 4 MG/2 ML VIAL IV PRN ×6 (00:26→23:31)
[2022-10-14] MEDS: MORPHINE SULFATE INJ 2 MG/ml SYRG IV PRN ×6 (00:27→23:32)
[2022-10-14] MEDS: hydrALAZINE HCL 25 MG TAB PO SCH ×5 (00:28→23:30)
[2022-10-14] MEDS: OCTREOTIDE ACETATE 500 MCG in SODIUM CHL 0.9% 99 ML IV SCH ×3 (00:43→18:45)
[2022-10-14 05:00] VITALS: BP 118/65
[2022-10-14] MEDS: cefTRIAXone 1GM/50ML D5W 50 ML IV SCH (05:16)
[2022-10-14] MEDS: NYSTATIN (MOUTH-THROAT) 500,000 UNITS/5 ML SUSP MT SCH ×4 (05:16→21:25)
[2022-10-14] MEDS: GABAPENTIN 400 MG CAP PO SCH ×3 (05:30→21:25)
[2022-10-14] MEDS: SUCRALFATE 1 GM/10 ML ORAL SUSP PO SCH ×4 (06:24→21:25)
[2022-10-14] MEDS: ACCU-CHEK COMFORT CURVE STRIP VI SCH ×4 (06:24→21:25)
[2022-10-14] MEDS: InsuLIN REG 1unit/0.01ml Soln (100units/ml) SC SCH ×4 (06:25→21:28)
[2022-10-14 06:45] LABS: Basophils # (auto) 0 10 ^3/uL (0-0.2); Basophils % (auto) 0.7 % (0.0-2.0); Eosinophils # (auto) 0.2 10 ^3/uL (0-0.8); Eosinophils % (auto) 2.8 % (0.0-7.0); Hematocrit 41.8 % (41.0-53.0); Lymphocytes # (auto) 1.3 10 ^3/uL (0.4-5.4); Lymphocytes % (auto) 23.2 % (10.0-50.0); Mean Corpuscular Hemoglobin 31.6 pg (28.0-32.0); Mean Corpuscular Hgb Conc. 35.9 g/dL (32.0-36.0); Mean Corpuscular Volume 88.1 fL (80.0-100.0); Monocytes # (auto) 0.6 10 ^3/uL (0-1.3); Monocytes % (auto) 10.3 % (0.0-12.0); Neutrophils # (auto) 3.4 10 ^3/uL (1.6-8.6); Nucleated Red Blood Cells % 0.2 %; Red Blood Cells 4.75 10^6/uL (4.5-5.90); Red Cell Distribution Width 13.5 % (11.8-14.3); White Blood Cell 5.4 10^3/uL (4.4-10.8)
[2022-10-14 07:04] LABS: Calcium 8.4 mg/dL (8.5-10.1)
[2022-10-14 07:06] LABS: BUN/Creatinine Ratio 12.9
[2022-10-14 08:00] VITALS: BP 140/75
[2022-10-14] MEDS: PANTOPRAZOLE 40 MG/10 ML VIAL INJ IV SCH ×2 (09:31→21:25)
[2022-10-14] MEDS: amLODIPine BESYLATE 5 MG TAB PO SCH (09:31)
[2022-10-14 12:00] VITALS: BP 168/86
[2022-10-14] MEDS ORDERED: POTASSIUM CHL 20 Meq TABLET PO ONE (15:30)
[2022-10-14 16:00] VITALS: BP 161/93
[2022-10-14 20:00] VITALS: BP 157/90
[2022-10-14] MEDS: INSULIN LANTUS (GLARGINE) 1 /0.01ml (100units/ml) SC SCH (21:28)
[2022-10-14 22:00] VITALS: BP 157/90
[2022-10-15] MEDS: OCTREOTIDE ACETATE 500 MCG in SODIUM CHL 0.9% 99 ML IV SCH ×2 (00:48→14:45)
[2022-10-15] MEDS: HYDROcodone-ACET 5/325MG TAB PO PRN (01:42)
[2022-10-15] MEDS: MORPHINE SULFATE INJ 2 MG/ml SYRG IV PRN ×3 (04:11→13:14)
[2022-10-15] MEDS: ONDANSETRON HCL 4 MG/2 ML VIAL IV PRN ×3 (04:12→13:14)
[2022-10-15] MEDS: cefTRIAXone 1GM/50ML D5W 50 ML IV SCH (04:37)
[2022-10-15 05:00] VITALS: BP 153/80
[2022-10-15] MEDS: NYSTATIN (MOUTH-THROAT) 500,000 UNITS/5 ML SUSP MT SCH ×2 (05:47→12:53)
[2022-10-15] MEDS: GABAPENTIN 400 MG CAP PO SCH ×2 (05:48→14:53)
[2022-10-15] MEDS: SUCRALFATE 1 GM/10 ML ORAL SUSP PO SCH ×2 (05:48→12:53)
[2022-10-15] MEDS: hydrALAZINE HCL 25 MG TAB PO SCH ×3 (05:50→12:53)
[2022-10-15 06:48] LABS: Albumin 2.9 g/dL (3.4-5.0); Calcium 8.1 mg/dL (8.5-10.1); Magnesium 1.6 mg/dL (1.6-2.6); Potassium 3.3 mmol/L (3.5-5.1)
[2022-10-15 06:51] LABS: BUN/Creatinine Ratio 9.7; Bilirubin, Total 0.6 mg/dL (0.2-1.0); Total Protein 5.4 g/dL (6.4-8.2)
[2022-10-15] MEDS: ACCU-CHEK COMFORT CURVE STRIP VI SCH ×2 (06:51→12:53)
[2022-10-15] MEDS: InsuLIN REG 1unit/0.01ml Soln (100units/ml) SC SCH ×2 (06:51→12:54)
[2022-10-15 08:00] VITALS: BP 148/78
[2022-10-15 08:05] LABS: Basophils # (auto) 0.1 10 ^3/uL (0-0.2); Basophils % (auto) 1.5 % (0.0-2.0); Eosinophils # (auto) 0.2 10 ^3/uL (0-0.8); Eosinophils % (auto) 2.9 % (0.0-7.0); Hematocrit 40.9 % (41.0-53.0); Hemoglobin 14.7 g/dL (13.5-17.5); Lymphocytes # (auto) 1.5 10 ^3/uL (0.4-5.4); Lymphocytes % (auto) 24.8 % (10.0-50.0); Mean Corpuscular Hemoglobin 31.6 pg (28.0-32.0); Mean Corpuscular Hgb Conc. 36.1 g/dL (32.0-36.0); Mean Corpuscular Volume 87.5 fL (80.0-100.0); Monocytes # (auto) 0.6 10 ^3/uL (0-1.3); Neutrophils # (auto) 3.8 10 ^3/uL (1.6-8.6); Neutrophils % (auto) 61.8 % (37.0-80.0); Nucleated Red Blood Cells % 0.2 %; Red Blood Cells 4.67 10^6/uL (4.5-5.90); Red Cell Distribution Width 13.6 % (11.8-14.3); White Blood Cell 6.2 10^3/uL (4.4-10.8)
[2022-10-15] MEDS: hydrALAZINE HCL 20 MG/ML VL IV PRN (08:58)
[2022-10-15] MEDS: PANTOPRAZOLE 40 MG/10 ML VIAL INJ IV SCH (08:58)
[2022-10-15 09:00] VITALS: BP 164/86
[2022-10-15] MEDS: amLODIPine BESYLATE 5 MG TAB PO SCH (09:00)
[2022-10-15 10:41] VITALS: BP 148/78
[2022-10-15 13:00] VITALS: BP 148/66
[2022-10-15] MEDS ORDERED: NYS5LQ MT (13:02)
[2022-10-15 14:37] VITALS: BP 148/66
== END 2022-10-15 14:51 | disposition home or self-care (01) | DRG 241 ==
LOC: ER 02:35 → EDBD 02:35 → TELE 06:34 → TELE-CENTR 10-09 17:41
PROVIDERS: ADMIT Hospitalist; ATTEND Internal Medicine
PROC: 0DB68ZX Excision of Stomach, Via Natural or Artificial Opening Endoscopic, Diagnostic (ICD-10-PCS; 2022-10-09)
PROC: 0DB58ZX Excision of Esophagus, Via Natural or Artificial Opening Endoscopic, Diagnostic (ICD-10-PCS; 2022-10-09)
PROC: 0DB98ZX Excision of Duodenum, Via Natural or Artificial Opening Endoscopic, Diagnostic (ICD-10-PCS; principal; 2022-10-09 15:16)
DX: K29.91 Gastroduodenitis, unspecified, with bleeding (principal); K22.11 Ulcer of esophagus with bleeding; E87.20 Acidosis, unspecified; K21.01 Gastro-esophageal reflux disease with esophagitis, with bleeding; D72.829 Elevated white blood cell count, unspecified; E11.65 Type 2 diabetes mellitus with hyperglycemia; K29.71 Gastritis, unspecified, with bleeding; I50.9 Heart failure, unspecified; I11.0 Hypertensive heart disease with heart failure; I25.10 Atherosclerotic heart disease of native coronary artery without angina pectoris; Z20.822 Contact with and (suspected) exposure to COVID-19; K44.9 Diaphragmatic hernia without obstruction or gangrene; Z86.73 Personal history of transient ischemic attack (TIA), and cerebral infarction without residual deficits; Z79.1 Long term (current) use of non-steroidal anti-inflammatories (NSAID); Z87.19 Personal history of other diseases of the digestive system; Z95.5 Presence of coronary angioplasty implant and graft; K29.81 Duodenitis with bleeding
CPT/HCPCS: 36415; 36600; 43239; 71260; 74177; 76705; 80048; 80053; 81001; 82150; 82805; 82962; 83690; 83735; 83880; 84484; 85025; 85610; 85730; 86850; 86900; 86901; 87426; 93005; 96361; 96365; 96366; 96367; 96368; 96375; 99291; C9113; G0378; J0696; J1815; J2250; J2405

== ENCOUNTER 2022-11-06 17:09 | Inpatient (IN) | payer MEDICAID ==
[~2022-11-06] VITALS: Ht 172.7 cm; Wt 95.2 kg
[~2022-11-06 17:09] MED LIST changes: +ALBU108A5 PO; +ERTU15TA PO; -GABA100C9 PO; +GABA800T97 PO; +INSU100I44 SC; +ISOS1TAB28 PO; +LISI-287 PO; -PANT40T PO; +PANT40TA2 PO; +TRAM50TA2 PO
[2022-11-06] MEDS ORDERED: PROCHLORPERAZINE EDISYLATE 5 MG/ML 2ML VIAL IV ONE (18:45)
[2022-11-06] MEDS ORDERED: SODIUM CHLORIDE 0.9% 1,000 ML IV ONE (19:00)
[2022-11-06 20:54] LABS: Eosinophils # (auto) 0 10 ^3/uL (0-0.8); Lymphocytes # (auto) 0.8 10 ^3/uL (0.4-5.4); Lymphocytes % (auto) 7.1 % (10.0-50.0); Monocytes # (auto) 0.2 10 ^3/uL (0-1.3); Monocytes % (auto) 1.8 % (0.0-12.0)
[2022-11-06 20:57] LABS: Basophils # (auto) 0 10 ^3/uL (0-0.2); Basophils % (auto) 0.3 % (0.0-2.0); Hematocrit 51.2 % (41.0-53.0); Mean Corpuscular Hemoglobin 31.7 pg (28.0-32.0); Mean Corpuscular Hgb Conc. 35.1 g/dL (32.0-36.0); Mean Corpuscular Volume 90.2 fL (80.0-100.0); Neutrophils # (auto) 9.7 10 ^3/uL (1.6-8.6); Neutrophils % (auto) 90.8 % (37.0-80.0); Nucleated Red Blood Cells % 0.1 %; Red Blood Cells 5.68 10^6/uL (4.5-5.90); Red Cell Distribution Width 14.5 % (11.8-14.3); White Blood Cell 10.7 10^3/uL (4.4-10.8)
[2022-11-06 21:10] LABS: Albumin 4.1 g/dL (3.4-5.0); Calcium 10.2 mg/dL (8.5-10.1); Magnesium 2.3 mg/dL (1.6-2.6); Potassium 4.2 mmol/L (3.5-5.1)
[2022-11-06 21:14] LABS: BUN/Creatinine Ratio 22.6; Bilirubin, Total 1.1 mg/dL (0.2-1.0); Total Protein 8.5 g/dL (6.4-8.2)
[2022-11-07] VITALS (7 sets, daily range): BP systolic 155–189; BP diastolic 85–103
[2022-11-07] MEDS ORDERED: ONDANSETRON HCL 4 MG/2 ML VIAL IV ONE (03:45)
[2022-11-07] MEDS ORDERED: MORPHINE SULFATE INJ 2 MG/ml SYRG IV ONE (05:15)
[2022-11-07] MEDS ORDERED: HYDROmorphone HCL 2 MG/ML VL/or syr IV ONE (05:45)
[2022-11-07] MEDS ORDERED: METOCLOPRAMIDE HCL 5MG/ml INJ 2ml VIAL IV ONE (05:45)
[2022-11-07] MEDS ORDERED: SODIUM CHLORIDE 0.9% 1,000 ML IV ONE (05:45)
[2022-11-07] MEDS ORDERED: DEXTROSE (50%) 50ML SYRG IV PRN (06:15)
[2022-11-07] MEDS ORDERED: ACETAMINOPHEN 325 MG TAB PO PRN (06:15)
[2022-11-07] MEDS: SUCRALFATE 1 GM TAB PO SCH ×4 (07:02→21:46)
[2022-11-07 08:58] LABS: Urine Bacteria NONE SEEN /hpf (None Seen); Urine Blood Negative /uL (Negative); Urine Specific Gravity 1.037 (1.001-1.035); Urine WBC 1 /hpf (0 - 3)
[2022-11-07 09:29] LABS: Alcohol, Urine < 3.0 mg/dL (0-10); Amphetamine Screen, Urine NEGATIVE (NEGATIVE); Barbiturate Scree,Urine NEGATIVE (NEGATIVE); Benzodiazephine Screen, Urine NEGATIVE (NEGATIVE); Cannabinoid Screen, Urine POSITIVE (NEGATIVE)
[2022-11-07 09:37] LABS: Cocaine Screen, Urine NEGATIVE (NEGATIVE); Opiate Scree,Urine NEGATIVE (NEGATIVE); Phencyclidine Screen, Urine NEGATIVE (NEGATIVE)
[2022-11-07] MEDS: PANTOPRAZOLE 40 MG TAB PO SCH (10:27)
[2022-11-07] MEDS: CLOPIDOGREL BISULFATE 75 MG TAB PO SCH (10:27)
[2022-11-07] MEDS: amLODIPine BESYLATE 5 MG TAB PO SCH (10:28)
[2022-11-07] MEDS: CARVEDILOL 3.125 MG TAB PO SCH ×2 (10:29→21:47)
[2022-11-07] MEDS: HYDROcodone-ACET 5/325MG TAB PO PRN ×2 (11:42→15:58)
[2022-11-07] MEDS: InsuLIN REG 1unit/0.01ml Soln (100units/ml) SC SCH ×2 (11:53→17:43)
[2022-11-07] MEDS: ACCU-CHEK COMFORT CURVE STRIP VI SCH ×2 (11:54→17:43)
[2022-11-07 14:23] LABS: Albumin 3.6 g/dL (3.4-5.0); BUN/Creatinine Ratio 28.3; Calcium 9.2 mg/dL (8.5-10.1); Potassium 3.7 mmol/L (3.5-5.1)
[2022-11-07 14:31] LABS: Bilirubin, Total 0.8 mg/dL (0.2-1.0); Total Protein 7.4 g/dL (6.4-8.2)
[2022-11-07] MEDS: SODIUM CHLORIDE 0.9% 1,000 ML IV SCH ×2 (14:48→20:50)
[2022-11-07] MEDS: ONDANSETRON HCL 4 MG/2 ML VIAL IV PRN ×2 (15:01→20:51)
[2022-11-07] MEDS ORDERED: KETOROLAC TROMETH 30 MG/ML 1ML VIAL IV ONE (18:30)
[2022-11-07] MEDS ORDERED: KETOROLAC TROMETH 30 MG/ML 1ML VIAL IV PRN (18:30)
[2022-11-07] MEDS: traMADol HCL 50 MG TAB PO PRN (20:50)
[2022-11-07] MEDS: cloNIDine HCL 0.1 MG TAB PO PRN (20:52)
[2022-11-07] MEDS ORDERED: ATORVASTATIN 20 MG TAB PO SCH (22:00)
[2022-11-08] MEDS: ACCU-CHEK COMFORT CURVE STRIP VI SCH ×4 (00:08→17:38)
[2022-11-08] MEDS: InsuLIN REG 1unit/0.01ml Soln (100units/ml) SC SCH ×4 (00:11→17:39)
[2022-11-08 05:00] VITALS: BP 168/91
[2022-11-08] MEDS: SODIUM CHLORIDE 0.9% 1,000 ML IV SCH ×3 (05:09→21:59)
[2022-11-08 05:56] LABS: Basophils # (auto) 0 10 ^3/uL (0-0.2); Basophils % (auto) 0.5 % (0.0-2.0); Eosinophils # (auto) 0 10 ^3/uL (0-0.8); Eosinophils % (auto) 0.1 % (0.0-7.0); Hematocrit 43.7 % (41.0-53.0); Lymphocytes % (auto) 10.9 % (10.0-50.0); Mean Corpuscular Hemoglobin 30.9 pg (28.0-32.0); Mean Corpuscular Hgb Conc. 34.2 g/dL (32.0-36.0); Mean Corpuscular Volume 90.3 fL (80.0-100.0); Monocytes # (auto) 0.8 10 ^3/uL (0-1.3); Monocytes % (auto) 8.1 % (0.0-12.0); Neutrophils # (auto) 7.5 10 ^3/uL (1.6-8.6); Neutrophils % (auto) 80.4 % (37.0-80.0); Nucleated Red Blood Cells % 0.1 %; Red Blood Cells 4.84 10^6/uL (4.5-5.90); Red Cell Distribution Width 14.2 % (11.8-14.3); White Blood Cell 9.4 10^3/uL (4.4-10.8)
[2022-11-08 06:01] LABS: BUN/Creatinine Ratio 31.3; Calcium 8.9 mg/dL (8.5-10.1); Potassium 3.6 mmol/L (3.5-5.1)
[2022-11-08] MEDS: SUCRALFATE 1 GM TAB PO SCH ×2 (06:35→12:16)
[2022-11-08] MEDS: cloNIDine HCL 0.1 MG TAB PO PRN ×2 (06:35→12:38)
[2022-11-08] MEDS: traMADol HCL 50 MG TAB PO PRN ×2 (06:36→22:01)
[2022-11-08 08:00] VITALS: BP 181/99
[2022-11-08] MEDS: CLOPIDOGREL BISULFATE 75 MG TAB PO SCH (09:03)
[2022-11-08] MEDS: ONDANSETRON HCL 4 MG/2 ML VIAL IV PRN (09:03)
[2022-11-08] MEDS: CARVEDILOL 3.125 MG TAB PO SCH ×2 (09:06→22:00)
[2022-11-08] MEDS: amLODIPine BESYLATE 5 MG TAB PO SCH (09:07)
[2022-11-08] MEDS: PANTOPRAZOLE 40 MG TAB PO SCH (09:07)
[2022-11-08 12:00] VITALS: BP 167/93
[2022-11-08] MEDS: PROMETHAZINE HCL 25 MG/ML 1ML IV PRN ×2 (12:19→22:01)
[2022-11-08 16:00] VITALS: BP 146/86
[2022-11-08] MEDS: SUCRALFATE 1 GM/10 ML ORAL SUSP PO SCH ×2 (17:33→22:00)
[2022-11-08] MEDS: ATORVASTATIN 20 MG TAB PO SCH (17:34)
[2022-11-08] MEDS: HYDROcodone-ACET 5/325MG TAB PO PRN (17:34)
[2022-11-08 20:00] VITALS: BP 169/94
[2022-11-08 22:00] VITALS: BP 169/94
[2022-11-08] MEDS: GABAPENTIN 400 MG CAP PO SCH (22:00)
[2022-11-09] VITALS (8 sets, daily range): BP systolic 134–186; BP diastolic 81–107
[2022-11-09] MEDS: ACCU-CHEK COMFORT CURVE STRIP VI SCH ×5 (00:33→23:08)
[2022-11-09] MEDS: InsuLIN REG 1unit/0.01ml Soln (100units/ml) SC SCH ×5 (00:38→23:10)
[2022-11-09] MEDS: HYDROcodone-ACET 5/325MG TAB PO PRN ×2 (04:30→14:32)
[2022-11-09] MEDS: GABAPENTIN 400 MG CAP PO SCH ×3 (05:28→21:18)
[2022-11-09] MEDS: SODIUM CHLORIDE 0.9% 1,000 ML IV SCH ×3 (05:28→21:17)
[2022-11-09] MEDS: cloNIDine HCL 0.1 MG TAB PO PRN ×2 (05:37→21:18)
[2022-11-09] MEDS: traMADol HCL 50 MG TAB PO PRN ×2 (06:55→21:19)
[2022-11-09] MEDS: SUCRALFATE 1 GM/10 ML ORAL SUSP PO SCH ×4 (06:55→21:17)
[2022-11-09] MEDS: ISOSORBIDE MONONITRATE ER 60 MG TAB PO SCH (10:06)
[2022-11-09] MEDS: CLOPIDOGREL BISULFATE 75 MG TAB PO SCH (10:06)
[2022-11-09] MEDS: PANTOPRAZOLE 40 MG TAB PO SCH (10:06)
[2022-11-09] MEDS: CARVEDILOL 3.125 MG TAB PO SCH ×2 (10:07→21:18)
[2022-11-09] MEDS: ASPirin-EC 81 mg tab PO SCH (10:07)
[2022-11-09] MEDS: amLODIPine BESYLATE 5 MG TAB PO SCH (10:07)
[2022-11-09] MEDS: ATORVASTATIN 20 MG TAB PO SCH (17:30)
[2022-11-10] MEDS: HYDROcodone-ACET 5/325MG TAB PO PRN ×3 (02:05→16:37)
[2022-11-10 04:02] VITALS: BP 145/83
[2022-11-10] MEDS: SODIUM CHLORIDE 0.9% 1,000 ML IV SCH ×3 (05:24→21:48)
[2022-11-10] MEDS: GABAPENTIN 400 MG CAP PO SCH ×3 (05:31→21:49)
[2022-11-10] MEDS: ACCU-CHEK COMFORT CURVE STRIP VI SCH ×4 (05:31→23:28)
[2022-11-10] MEDS: InsuLIN REG 1unit/0.01ml Soln (100units/ml) SC SCH ×4 (05:34→23:29)
[2022-11-10] MEDS: traMADol HCL 50 MG TAB PO PRN ×2 (05:35→21:50)
[2022-11-10] MEDS: SUCRALFATE 1 GM/10 ML ORAL SUSP PO SCH ×4 (06:11→21:48)
[2022-11-10 07:48] VITALS: BP 155/86
[2022-11-10 09:00] VITALS: BP 177/96
[2022-11-10] MEDS: CLOPIDOGREL BISULFATE 75 MG TAB PO SCH (09:26)
[2022-11-10] MEDS: ISOSORBIDE MONONITRATE ER 60 MG TAB PO SCH (09:27)
[2022-11-10] MEDS: PANTOPRAZOLE 40 MG TAB PO SCH (09:27)
[2022-11-10] MEDS: CARVEDILOL 3.125 MG TAB PO SCH ×2 (09:28→21:49)
[2022-11-10] MEDS: ASPirin-EC 81 mg tab PO SCH (09:29)
[2022-11-10] MEDS: amLODIPine BESYLATE 5 MG TAB PO SCH (09:29)
[2022-11-10 13:00] VITALS: BP 160/83
[2022-11-10 17:00] VITALS: BP 160/84
[2022-11-10] MEDS: ATORVASTATIN 20 MG TAB PO SCH (19:00)
[2022-11-10] MEDS: cloNIDine HCL 0.1 MG TAB PO PRN (21:50)
[2022-11-10 22:04] VITALS: BP 171/81
[2022-11-11] MEDS: HYDROcodone-ACET 5/325MG TAB PO PRN ×2 (01:04→10:49)
[2022-11-11] MEDS: traMADol HCL 50 MG TAB PO PRN (04:54)
[2022-11-11 05:00] VITALS: BP 172/86
[2022-11-11] MEDS: GABAPENTIN 400 MG CAP PO SCH ×2 (05:41→14:00)
[2022-11-11] MEDS: ACCU-CHEK COMFORT CURVE STRIP VI SCH ×2 (05:41→12:13)
[2022-11-11] MEDS: SODIUM CHLORIDE 0.9% 1,000 ML IV SCH ×2 (05:41→12:14)
[2022-11-11] MEDS: InsuLIN REG 1unit/0.01ml Soln (100units/ml) SC SCH ×2 (05:44→12:14)
[2022-11-11] MEDS: SUCRALFATE 1 GM/10 ML ORAL SUSP PO SCH ×2 (06:23→12:11)
[2022-11-11 09:00] VITALS: BP 159/88
[2022-11-11] MEDS: ISOSORBIDE MONONITRATE ER 60 MG TAB PO SCH (10:01)
[2022-11-11] MEDS: ASPirin-EC 81 mg tab PO SCH (10:01)
[2022-11-11] MEDS: CLOPIDOGREL BISULFATE 75 MG TAB PO SCH (10:02)
[2022-11-11] MEDS: CARVEDILOL 3.125 MG TAB PO SCH (10:02)
[2022-11-11] MEDS: amLODIPine BESYLATE 5 MG TAB PO SCH (10:02)
[2022-11-11] MEDS: PANTOPRAZOLE 40 MG TAB PO SCH (10:02)
[2022-11-11 12:48] VITALS: BP 154/83
[2022-11-11 14:50] VITALS: BP 154/83
== END 2022-11-11 16:31 | disposition home or self-care (01) | DRG 241 ==
LOC: ER 17:09 → EDBD 17:09 → EDSEX 17:09 → OVERFLOW 11-07 06:04 → WEST WING 11-07 16:40
PROVIDERS: ADMIT Nurse Practitioner; ATTEND Internal Medicine
DX: K29.70 Gastritis, unspecified, without bleeding (principal); I11.0 Hypertensive heart disease with heart failure; I50.9 Heart failure, unspecified; E11.65 Type 2 diabetes mellitus with hyperglycemia; F12.90 Cannabis use, unspecified, uncomplicated; K20.90 Esophagitis, unspecified without bleeding; I25.10 Atherosclerotic heart disease of native coronary artery without angina pectoris; R11.15 Cyclical vomiting syndrome unrelated to migraine; Z20.822 Contact with and (suspected) exposure to COVID-19; Z79.1 Long term (current) use of non-steroidal anti-inflammatories (NSAID); Z79.4 Long term (current) use of insulin; Z83.3 Family history of diabetes mellitus; Z87.11 Personal history of peptic ulcer disease; Z95.5 Presence of coronary angioplasty implant and graft
CPT/HCPCS: 36415; 78226; 80048; 80053; 80307; 81001; 82962; 83690; 83735; 84484; 85025; 87081; 87426; 93005; 96361; 96374; 96375; 96376; G0378; J1815; J1885; J2405

== ENCOUNTER 2022-12-17 09:05 | Inpatient (IN) | payer MEDICAID ==
[~2022-12-17] VITALS: Ht 167.6 cm; Wt 94.4 kg
[2022-12-17] MEDS ORDERED: ONDANSETRON HCL 4 MG/2 ML VIAL IV ONE ×2 (09:15→11:00)
[2022-12-17] MEDS ORDERED: SODIUM CHLORIDE 0.9% 1,000 ML IV ONE ×2 (09:15)
[2022-12-17 09:46] LABS: Eosinophils # (auto) 0 10 ^3/uL (0-0.8); Hemoglobin 17.7 g/dL (13.5-17.5); Monocytes # (auto) 0.5 10 ^3/uL (0-1.3); Monocytes % (auto) 3.2 % (0.0-12.0)
[2022-12-17 09:48] LABS: Basophils # (auto) 0.1 10 ^3/uL (0-0.2); Basophils % (auto) 0.4 % (0.0-2.0); Hematocrit 50.7 % (41.0-53.0); Lymphocytes # (auto) 0.7 10 ^3/uL (0.4-5.4); Lymphocytes % (auto) 3.9 % (10.0-50.0); Mean Corpuscular Hemoglobin 31.5 pg (28.0-32.0); Mean Corpuscular Hgb Conc. 34.9 g/dL (32.0-36.0); Mean Corpuscular Volume 90.1 fL (80.0-100.0); Neutrophils # (auto) 15.7 10 ^3/uL (1.6-8.6); Neutrophils % (auto) 92.5 % (37.0-80.0); Nucleated Red Blood Cells % 1.4 %; Red Blood Cells 5.63 10^6/uL (4.5-5.90); Red Cell Distribution Width 14.2 % (11.8-14.3)
[2022-12-17 10:15] LABS: INR 1.06 (0.9-1.15); Partial Thromboplastin Time 29.6 sec (24.6-33.4)
[2022-12-17 10:19] LABS: Albumin 4.4 g/dL (3.4-5.0); Bilirubin, Total 1.3 mg/dL (0.2-1.0); Calcium 10.1 mg/dL (8.5-10.1); Potassium 3.6 mmol/L (3.5-5.1); Total Protein 7.8 g/dL (6.4-8.2)
[2022-12-17] MEDS ORDERED: MORPHINE SULFATE 4 MG/ML SYR/VIAL IV ONE (11:00)
[2022-12-17] MEDS ORDERED: InsuLIN REG 1unit/0.01ml Soln (100units/ml) IV ONE (11:00)
[2022-12-17] MEDS ORDERED: cefTRIAXone 1GM/50ML D5W 50 ML IV ONE (12:15)
[2022-12-17] MEDS ORDERED: metroNIDAZOLE 500MG/100ML 100 ML IV ONE (12:15)
[2022-12-17] MEDS ORDERED: PANTOPRAZOLE 40 MG/10 ML VIAL INJ IV ONE (12:45)
[2022-12-17 12:57] LABS: Urine Bacteria NONE SEEN /hpf (None Seen); Urine Blood TRACE /uL (Negative); Urine Hyaline Cast FEW /lpf (0 - 2); Urine Specific Gravity 1.035 (1.001-1.035); Urine WBC <1 /hpf (0 - 3)
[2022-12-17] MEDS ORDERED: LABETALOL HCL 5 MG/ML 4ML SYRINGE IV ONE (13:00)
[2022-12-17] MEDS ORDERED: cloNIDine HCL 0.1 MG TAB PO ONE (16:15)
[2022-12-17] MEDS ORDERED: ACETAMINOPHEN 325 MG TAB PO PRN (18:15)
[2022-12-17] MEDS ORDERED: MORPHINE SULFATE INJ 2 MG/ml SYRG IV PRN (18:15)
[2022-12-17] MEDS ORDERED: NITROGLYCERIN 0.4 MG SL TAB SL PRN (18:15)
[2022-12-17] MEDS: SODIUM CHLORIDE 0.9% 1,000 ML IV SCH (18:26)
[2022-12-17] MEDS: MORPHINE SULFATE INJ 2 MG/ml SYRG IV PRN (21:07)
[2022-12-17] MEDS: SUCRALFATE 1 GM/10 ML ORAL SUSP GT SCH (22:49)
[2022-12-17] MEDS: PANTOPRAZOLE 40 MG TAB PO SCH (22:49)
[2022-12-17] MEDS: ONDANSETRON HCL 4 MG/2 ML VIAL IV PRN (22:52)
[2022-12-18] MEDS ORDERED: hydrALAZINE HCL 20 MG/ML VL IV ONE (00:30)
[2022-12-18] MEDS ORDERED: GABAPENTIN 400 MG CAP PO ONE (00:30)
[2022-12-18] MEDS ORDERED: hydrALAZINE HCL 20 MG/ML VL ONE (00:38)
[2022-12-18] MEDS ORDERED: GABAPENTIN 400 MG CAP ONE (00:40)
[2022-12-18] MEDS: MORPHINE SULFATE INJ 2 MG/ml SYRG IV PRN ×3 (03:15→17:34)
[2022-12-18] MEDS: ONDANSETRON HCL 4 MG/2 ML VIAL IV PRN ×3 (03:15→17:39)
[2022-12-18 05:40] LABS: Basophils # (auto) 0 10 ^3/uL (0-0.2); Basophils % (auto) 0.2 % (0.0-2.0); Eosinophils # (auto) 0 10 ^3/uL (0-0.8); Hematocrit 41.3 % (41.0-53.0); Hemoglobin 14.4 g/dL (13.5-17.5); Lymphocytes # (auto) 0.9 10 ^3/uL (0.4-5.4); Lymphocytes % (auto) 7.4 % (10.0-50.0); Mean Corpuscular Hemoglobin 31.5 pg (28.0-32.0); Mean Corpuscular Hgb Conc. 34.9 g/dL (32.0-36.0); Mean Corpuscular Volume 90.3 fL (80.0-100.0); Monocytes # (auto) 0.7 10 ^3/uL (0-1.3); Monocytes % (auto) 5.3 % (0.0-12.0); Neutrophils # (auto) 11.1 10 ^3/uL (1.6-8.6); Neutrophils % (auto) 87.1 % (37.0-80.0); Red Blood Cells 4.57 10^6/uL (4.5-5.90); White Blood Cell 12.7 10^3/uL (4.4-10.8)
[2022-12-18 05:47] LABS: Potassium 3.6 mmol/L (3.5-5.1)
[2022-12-18 05:55] LABS: Albumin 3.1 g/dL (3.4-5.0); BUN/Creatinine Ratio 39.1; Bilirubin, Total 0.8 mg/dL (0.2-1.0); Calcium 8.3 mg/dL (8.5-10.1); Total Protein 6.3 g/dL (6.4-8.2)
[2022-12-18] MEDS: SODIUM CHLORIDE 0.9% 1,000 ML IV SCH ×4 (07:23→22:18)
[2022-12-18] MEDS: SUCRALFATE 1 GM/10 ML ORAL SUSP GT SCH ×3 (08:49→17:30)
[2022-12-18] MEDS: PANTOPRAZOLE 40 MG TAB PO SCH (11:05)
[2022-12-18] MEDS: hydrALAZINE HCL 20 MG/ML VL IV PRN ×3 (12:12→22:01)
[2022-12-18] MEDS: HYDROcodone-ACET 5/325MG TAB PO PRN ×2 (15:30→20:41)
[2022-12-18 19:08] VITALS: BP 184/90
[2022-12-18 19:42] VITALS: BP 169/89
[2022-12-18] MEDS: SUCRALFATE 1 GM/10 ML ORAL SUSP PO SCH (21:59)
[2022-12-18] MEDS: PANTOPRAZOLE 40 MG/10 ML VIAL INJ IV SCH (21:59)
[2022-12-18 22:00] VITALS: BP 169/89
[2022-12-19] MEDS: ONDANSETRON HCL 4 MG/2 ML VIAL IV PRN ×4 (00:13→17:04)
[2022-12-19] MEDS: MORPHINE SULFATE INJ 2 MG/ml SYRG IV PRN ×6 (00:14→21:43)
[2022-12-19 05:00] VITALS: BP 178/92
[2022-12-19] MEDS: SUCRALFATE 1 GM/10 ML ORAL SUSP PO SCH ×4 (06:38→21:20)
[2022-12-19] MEDS: hydrALAZINE HCL 20 MG/ML VL IV PRN (06:38)
[2022-12-19] MEDS ORDERED: DEXTROSE (50%) 50ML SYRG IV PRN (07:30)
[2022-12-19 08:00] VITALS: BP 172/84
[2022-12-19] MEDS ORDERED: traMADol HCL 50 MG TAB PO PRN (08:45)
[2022-12-19] MEDS: amLODIPine BESYLATE 5 MG TAB PO SCH (09:06)
[2022-12-19] MEDS: ASPirin 81 mg TAB PO SCH (09:07)
[2022-12-19] MEDS: CLOPIDOGREL BISULFATE 75 MG TAB PO SCH (09:26)
[2022-12-19] MEDS: PANTOPRAZOLE 40 MG/10 ML VIAL INJ IV SCH ×2 (09:28→21:20)
[2022-12-19] MEDS: METOPROLOL TARTRATE 25 MG TAB PO SCH ×2 (10:00→21:43)
[2022-12-19] MEDS ORDERED: CARVEDILOL 3.125 MG TAB PO SCH (10:00)
[2022-12-19 12:00] VITALS: BP 175/94
[2022-12-19] MEDS: ACCU-CHEK COMFORT CURVE STRIP VI SCH ×3 (12:07→21:21)
[2022-12-19] MEDS: InsuLIN REG 1unit/0.01ml Soln (100units/ml) SC SCH ×3 (12:07→21:44)
[2022-12-19] MEDS: HYDROcodone-ACET 5/325MG TAB PO PRN ×2 (12:08→20:02)
[2022-12-19] MEDS: SODIUM CHLORIDE 0.9% 1,000 ML IV SCH ×2 (12:19→20:15)
[2022-12-19] MEDS: ISOSORBIDE MONONITRATE ER 60 MG TAB PO SCH (13:01)
[2022-12-19] MEDS: GABAPENTIN 100 MG CAP PO SCH ×2 (13:01→21:21)
[2022-12-19 16:00] VITALS: BP 159/87
[2022-12-19 22:00] VITALS: BP 159/90
[2022-12-20] MEDS: MORPHINE SULFATE INJ 2 MG/ml SYRG IV PRN ×5 (01:53→20:52)
[2022-12-20 03:07] VITALS: BP 159/90
[2022-12-20] MEDS: HYDROcodone-ACET 5/325MG TAB PO PRN ×3 (03:46→23:51)
[2022-12-20] MEDS: SODIUM CHLORIDE 0.9% 1,000 ML IV SCH ×3 (04:12→21:15)
[2022-12-20 05:00] VITALS: BP 164/78
[2022-12-20] MEDS: ACCU-CHEK COMFORT CURVE STRIP VI SCH ×4 (06:06→21:30)
[2022-12-20] MEDS: GABAPENTIN 100 MG CAP PO SCH ×3 (06:06→21:28)
[2022-12-20] MEDS: SUCRALFATE 1 GM/10 ML ORAL SUSP PO SCH ×4 (06:06→21:28)
[2022-12-20] MEDS: InsuLIN REG 1unit/0.01ml Soln (100units/ml) SC SCH ×4 (06:25→21:34)
[2022-12-20] MEDS: hydrALAZINE HCL 20 MG/ML VL IV PRN (06:50)
[2022-12-20] MEDS: CLOPIDOGREL BISULFATE 75 MG TAB PO SCH (08:46)
[2022-12-20] MEDS: amLODIPine BESYLATE 5 MG TAB PO SCH (08:47)
[2022-12-20] MEDS: PANTOPRAZOLE 40 MG/10 ML VIAL INJ IV SCH ×2 (08:47→21:28)
[2022-12-20] MEDS: ISOSORBIDE MONONITRATE ER 60 MG TAB PO SCH (08:48)
[2022-12-20] MEDS: ASPirin 81 mg TAB PO SCH (08:48)
[2022-12-20] MEDS: METOPROLOL TARTRATE 25 MG TAB PO SCH ×2 (08:48→21:28)
[2022-12-20 09:19] VITALS: BP 145/84
[2022-12-20] MEDS: ONDANSETRON HCL 4 MG/2 ML VIAL IV PRN ×2 (12:10→20:49)
[2022-12-20 12:30] VITALS: BP 162/87
[2022-12-20 17:05] VITALS: BP 149/82
[2022-12-20 22:00] VITALS: BP 152/80
[2022-12-21] MEDS: MORPHINE SULFATE INJ 2 MG/ml SYRG IV PRN ×2 (02:31→08:29)
[2022-12-21] MEDS: HYDROcodone-ACET 5/325MG TAB PO PRN ×2 (04:58→12:18)
[2022-12-21 05:06] VITALS: BP 155/85
[2022-12-21] MEDS: SODIUM CHLORIDE 0.9% 1,000 ML IV SCH ×2 (05:20→13:55)
[2022-12-21] MEDS: GABAPENTIN 100 MG CAP PO SCH ×2 (05:56→14:00)
[2022-12-21] MEDS: SUCRALFATE 1 GM/10 ML ORAL SUSP PO SCH ×2 (05:56→12:16)
[2022-12-21] MEDS: ACCU-CHEK COMFORT CURVE STRIP VI SCH ×2 (05:57→12:23)
[2022-12-21] MEDS: InsuLIN REG 1unit/0.01ml Soln (100units/ml) SC SCH ×2 (06:00→12:17)
[2022-12-21] MEDS: ONDANSETRON HCL 4 MG/2 ML VIAL IV PRN (08:28)
[2022-12-21 09:00] VITALS: BP 163/93
[2022-12-21] MEDS: PANTOPRAZOLE 40 MG/10 ML VIAL INJ IV SCH (09:50)
[2022-12-21] MEDS: METOPROLOL TARTRATE 25 MG TAB PO SCH (09:50)
[2022-12-21] MEDS: CLOPIDOGREL BISULFATE 75 MG TAB PO SCH (09:50)
[2022-12-21] MEDS: ASPirin 81 mg TAB PO SCH (09:51)
[2022-12-21] MEDS: amLODIPine BESYLATE 5 MG TAB PO SCH (09:51)
[2022-12-21] MEDS: ISOSORBIDE MONONITRATE ER 60 MG TAB PO SCH (09:53)
[2022-12-21 13:00] VITALS: BP 143/76
[2022-12-21 13:57] VITALS: BP 143/76
== END 2022-12-21 14:10 | disposition home or self-care (01) | DRG 249 ==
LOC: ER 09:05 → EDBD 09:05 → TELE 18:17 → TELE-WESTW 12-18 19:08
PROVIDERS: ADMIT Internal Medicine; ATTEND Internal Medicine
DX: R11.15 Cyclical vomiting syndrome unrelated to migraine (principal); I11.0 Hypertensive heart disease with heart failure; K27.4 Chronic or unspecified peptic ulcer, site unspecified, with hemorrhage; I50.9 Heart failure, unspecified; E11.65 Type 2 diabetes mellitus with hyperglycemia; F12.90 Cannabis use, unspecified, uncomplicated; D72.829 Elevated white blood cell count, unspecified; E78.5 Hyperlipidemia, unspecified; I16.0 Hypertensive urgency; I25.10 Atherosclerotic heart disease of native coronary artery without angina pectoris; Z20.822 Contact with and (suspected) exposure to COVID-19; Z83.3 Family history of diabetes mellitus; Z98.61 Coronary angioplasty status
CPT/HCPCS: 36415; 71045; 74176; 80053; 81001; 82962; 83605; 83880; 84484; 85025; 85610; 85730; 87040; 87426; 93005; 96361; 96365; 96367; 96375; C9113; G0378; J0696; J1815; J2405; J3490

== ENCOUNTER 2023-01-04 17:22 | Inpatient (IN) | payer MEDICAID ==
[~2023-01-04] VITALS: Ht 172.7 cm; Wt 92.6 kg
[2023-01-04 18:56] LABS: Basophils # (auto) 0.1 10 ^3/uL (0-0.2); Basophils % (auto) 0.7 % (0.0-2.0); Eosinophils # (auto) 0 10 ^3/uL (0-0.8); Hematocrit 48.5 % (41.0-53.0); Hemoglobin 17.3 g/dL (13.5-17.5); Lymphocytes # (auto) 0.6 10 ^3/uL (0.4-5.4); Lymphocytes % (auto) 4.3 % (10.0-50.0); Mean Corpuscular Hemoglobin 31.1 pg (28.0-32.0); Mean Corpuscular Hgb Conc. 35.7 g/dL (32.0-36.0); Mean Corpuscular Volume 87.2 fL (80.0-100.0); Monocytes # (auto) 0.3 10 ^3/uL (0-1.3); Monocytes % (auto) 2.4 % (0.0-12.0); Neutrophils # (auto) 12.1 10 ^3/uL (1.6-8.6); Neutrophils % (auto) 92.6 % (37.0-80.0); Nucleated Red Blood Cells % 0.7 %; Red Blood Cells 5.56 10^6/uL (4.5-5.90); Red Cell Distribution Width 14.6 % (11.8-14.3)
[2023-01-04] MEDS ORDERED: SODIUM CHLORIDE 0.9% 1,000 ML IVB ONE (19:00)
[2023-01-04] MEDS ORDERED: PROCHLORPERAZINE EDISYLATE 5 MG/ML 2ML VIAL IM ONE (19:00)
[2023-01-04 20:06] LABS: Albumin 4.3 g/dL (3.4-5.0); Calcium 10.2 mg/dL (8.5-10.1); Magnesium 2.3 mg/dL (1.6-2.6); Potassium 3.6 mmol/L (3.5-5.1)
[2023-01-04 20:09] LABS: BUN/Creatinine Ratio 19.3 (10.0-20.0)
[2023-01-04 20:12] LABS: Bilirubin, Total 1.3 mg/dL (0.2-1.0); Total Protein 7.8 g/dL (6.4-8.2)
[2023-01-05] MEDS ORDERED: PANTOPRAZOLE 40mg/50ML NS AE 50 ML IV ONE
[2023-01-05] MEDS ORDERED: PANTOPRAZOLE 40 MG/10 ML VIAL INJ IV ONE
[2023-01-05] MEDS ORDERED: LACTATED RINGER'S 1,000 ML IV ONE (04:00)
[2023-01-05] MEDS ORDERED: metroNIDAZOLE 500MG/100ML 100 ML IV ONE (04:00)
[2023-01-05] MEDS ORDERED: cefTRIAXone 1GM/50ML D5W 50 ML IV ONE (04:00)
[2023-01-05] MEDS ORDERED: diphenhdrAMINE HCL 50 MG/1 ML VL IV ONE (05:30)
[2023-01-05] MEDS ORDERED: METOCLOPRAMIDE HCL 5MG/ml INJ 2ml VIAL IV ONE (05:30)
[2023-01-05] MEDS ORDERED: ONDANSETRON HCL 4 MG/2 ML VIAL IV ONE (05:30)
[2023-01-05] MEDS ORDERED: DEXTROSE (50%) 50ML SYRG IV PRN (06:00)
[2023-01-05] MEDS ORDERED: ACETAMINOPHEN 325 MG TAB PO PRN (06:00)
[2023-01-05 06:32] LABS: Basophils # (auto) 0 10 ^3/uL (0-0.2); Basophils % (auto) 0.3 % (0.0-2.0); Eosinophils # (auto) 0 10 ^3/uL (0-0.8); Hematocrit 47.6 % (41.0-53.0); Hemoglobin 16.6 g/dL (13.5-17.5); Lymphocytes # (auto) 0.6 10 ^3/uL (0.4-5.4); Lymphocytes % (auto) 4.5 % (10.0-50.0); Mean Corpuscular Hemoglobin 31.6 pg (28.0-32.0); Mean Corpuscular Volume 90.3 fL (80.0-100.0); Monocytes # (auto) 0.6 10 ^3/uL (0-1.3); Neutrophils # (auto) 11.6 10 ^3/uL (1.6-8.6); Neutrophils % (auto) 90.2 % (37.0-80.0); Nucleated Red Blood Cells % 0.9 %; Red Blood Cells 5.27 10^6/uL (4.5-5.90); Red Cell Distribution Width 14.4 % (11.8-14.3); White Blood Cell 12.9 10^3/uL (4.4-10.8)
[2023-01-05] MEDS: metroNIDAZOLE 500MG/100ML 100 ML IV SCH ×3 (06:41→22:34)
[2023-01-05 06:44] LABS: Albumin 3.8 g/dL (3.4-5.0); Calcium 9.6 mg/dL (8.5-10.1); Potassium 3.2 mmol/L (3.5-5.1)
[2023-01-05] MEDS ORDERED: NITROGLYCERIN 0.4 MG SL TAB SL PRN (06:45)
[2023-01-05] MEDS ORDERED: MORPHINE SULFATE INJ 2 MG/ml SYRG IV PRN (06:45)
[2023-01-05] MEDS: ACCU-CHEK COMFORT CURVE STRIP VI SCH ×3 (06:45→18:00)
[2023-01-05] MEDS: InsuLIN REG 1unit/0.01ml Soln (100units/ml) SC SCH ×3 (06:47→18:03)
[2023-01-05 06:49] LABS: BUN/Creatinine Ratio 24.4 (10.0-20.0); Total Protein 7.6 g/dL (6.4-8.2)
[2023-01-05 07:34] LABS: Urine Bacteria NONE SEEN /hpf (None Seen); Urine Blood Negative /uL (Negative); Urine Hyaline Cast FEW /lpf (0 - 2); Urine Specific Gravity 1.034 (1.001-1.035); Urine WBC <1 /hpf (0 - 3)
[2023-01-05] MEDS: LACTATED RINGER'S 1,000 ML IV SCH ×2 (07:52→21:15)
[2023-01-05] MEDS: ONDANSETRON HCL 4 MG/2 ML VIAL IV PRN ×3 (08:32→23:45)
[2023-01-05] MEDS: MORPHINE SULFATE INJ 2 MG/ml SYRG IV PRN ×3 (08:33→23:47)
[2023-01-05] MEDS: PANTOPRAZOLE 40 MG/10 ML VIAL INJ IV SCH ×2 (09:38→22:34)
[2023-01-05] MEDS: hydrALAZINE HCL 20 MG/ML VL IV PRN (10:33)
[2023-01-05] MEDS: HYDROcodone-ACET 5/325MG TAB PO PRN ×2 (14:17→18:59)
[2023-01-06] MEDS: ACCU-CHEK COMFORT CURVE STRIP VI SCH ×5 (00:05→23:35)
[2023-01-06] MEDS: InsuLIN REG 1unit/0.01ml Soln (100units/ml) SC SCH ×5 (00:10→23:39)
[2023-01-06] MEDS: hydrALAZINE HCL 20 MG/ML VL IV PRN ×3 (00:19→14:14)
[2023-01-06] MEDS ORDERED: dilTIAZem 25 MG/5 ML VIAL IV ONE (03:15)
[2023-01-06] MEDS: ONDANSETRON HCL 4 MG/2 ML VIAL IV PRN (04:14)
[2023-01-06] MEDS: MORPHINE SULFATE INJ 2 MG/ml SYRG IV PRN (04:14)
[2023-01-06] MEDS: metroNIDAZOLE 500MG/100ML 100 ML IV SCH ×2 (05:35→14:00)
[2023-01-06 05:37] LABS: Basophils # (auto) 0 10 ^3/uL (0-0.2); Basophils % (auto) 0.2 % (0.0-2.0); Eosinophils # (auto) 0 10 ^3/uL (0-0.8); Hematocrit 44.9 % (41.0-53.0); Lymphocytes # (auto) 0.8 10 ^3/uL (0.4-5.4); Lymphocytes % (auto) 5.8 % (10.0-50.0); Mean Corpuscular Hemoglobin 31.5 pg (28.0-32.0); Mean Corpuscular Hgb Conc. 35.6 g/dL (32.0-36.0); Mean Corpuscular Volume 88.6 fL (80.0-100.0); Monocytes # (auto) 0.6 10 ^3/uL (0-1.3); Monocytes % (auto) 4.3 % (0.0-12.0); Neutrophils # (auto) 12.6 10 ^3/uL (1.6-8.6); Neutrophils % (auto) 89.7 % (37.0-80.0); Nucleated Red Blood Cells % 0.4 %; Red Blood Cells 5.07 10^6/uL (4.5-5.90); Red Cell Distribution Width 14.5 % (11.8-14.3)
[2023-01-06 05:51] LABS: Potassium 3.2 mmol/L (3.5-5.1)
[2023-01-06 05:58] LABS: Albumin 3.6 g/dL (3.4-5.0); BUN/Creatinine Ratio 43.4 (10.0-20.0); Calcium 9.6 mg/dL (8.5-10.1); Total Protein 7.4 g/dL (6.4-8.2)
[2023-01-06] MEDS: LACTATED RINGER'S 1,000 ML IV SCH ×2 (08:40→23:28)
[2023-01-06] MEDS: POTASSIUM CHL 20MEQ/100ML 100 ML IV SCH ×2 (09:01→10:54)
[2023-01-06] MEDS: PANTOPRAZOLE 40 MG/10 ML VIAL INJ IV SCH ×2 (09:02→22:49)
[2023-01-06] MEDS ORDERED: cefTRIAXone 1GM/50ML D5W 50 ML IV ONE (14:00)
[2023-01-06 16:22] LABS: Amphetamine Screen, Urine NEGATIVE (NEGATIVE); Barbiturate Scree,Urine NEGATIVE (NEGATIVE); Benzodiazephine Screen, Urine NEGATIVE (NEGATIVE); Cannabinoid Screen, Urine POSITIVE (NEGATIVE); Cocaine Screen, Urine NEGATIVE (NEGATIVE); Opiate Scree,Urine NEGATIVE (NEGATIVE); Phencyclidine Screen, Urine NEGATIVE (NEGATIVE)
[2023-01-06] MEDS: METOCLOPRAMIDE HCL 5MG/ml INJ 2ml VIAL IV SCH ×2 (17:20→23:35)
[2023-01-06] MEDS: SUCRALFATE 1 GM/10 ML ORAL SUSP PO SCH (17:20)
[2023-01-06] MEDS: ATORVASTATIN 20 MG TAB PO SCH (17:21)
[2023-01-06] MEDS: HYDROcodone-ACET 5/325MG TAB PO PRN (17:21)
[2023-01-06] MEDS ORDERED: amLODIPine BESYLATE 5 MG TAB PO SCH (22:00)
[2023-01-06] MEDS: LISINOPRIL PO SCH (22:00)
[2023-01-06] MEDS ORDERED: CARVEDILOL 12.5 MG TAB PO SCH (22:00)
[2023-01-06] MEDS: HYDROCHLOROTHIAZI PO SCH (22:00)
[2023-01-06] MEDS: CARVEDILOL 12.5 MG TAB PO SCH (22:50)
[2023-01-06 23:00] VITALS: BP 188/87
[2023-01-06 23:18] VITALS: BP 157/81
[2023-01-07] VITALS (7 sets, daily range): BP systolic 138–181; BP diastolic 64–94
[2023-01-07] MEDS: HYDROcodone-ACET 5/325MG TAB PO PRN ×4 (02:17→21:49)
[2023-01-07] MEDS: hydrALAZINE HCL 20 MG/ML VL IV PRN (04:30)
[2023-01-07] MEDS: METOCLOPRAMIDE HCL 5MG/ml INJ 2ml VIAL IV SCH ×4 (05:46→23:32)
[2023-01-07] MEDS: ACCU-CHEK COMFORT CURVE STRIP VI SCH ×4 (05:47→23:32)
[2023-01-07] MEDS: InsuLIN REG 1unit/0.01ml Soln (100units/ml) SC SCH ×4 (05:59→23:35)
[2023-01-07] MEDS: SUCRALFATE 1 GM/10 ML ORAL SUSP PO SCH ×3 (06:26→17:59)
[2023-01-07] MEDS: PANTOPRAZOLE 40 MG/10 ML VIAL INJ IV SCH ×2 (09:49→21:29)
[2023-01-07] MEDS: amLODIPine BESYLATE 5 MG TAB PO SCH (09:51)
[2023-01-07] MEDS: ISOSORBIDE MONONITRATE ER 60 MG TAB PO SCH (09:52)
[2023-01-07] MEDS: CARVEDILOL 12.5 MG TAB PO SCH ×2 (09:52→10:55)
[2023-01-07] MEDS: LISINOPRIL PO SCH ×2 (10:00→21:29)
[2023-01-07] MEDS: HYDROCHLOROTHIAZI PO SCH ×2 (10:00→21:29)
[2023-01-07] MEDS: NYSTATIN (MOUTH-THROAT) 500,000 UNITS/5 ML SUSP MT SCH ×3 (11:58→21:29)
[2023-01-07] MEDS: ATORVASTATIN 20 MG TAB PO SCH (18:04)
[2023-01-07] MEDS: INSULIN LANTUS (GLARGINE) 1 /0.01ml (100units/ml) SC SCH (21:31)
[2023-01-07] MEDS: metroNIDAZOLE 500 MG TAB PO SCH (21:43)
[2023-01-08] MEDS: HYDROcodone-ACET 5/325MG TAB PO PRN ×3 (03:30→14:11)
[2023-01-08] MEDS: hydrALAZINE HCL 20 MG/ML VL IV PRN (03:59)
[2023-01-08 04:48] VITALS: BP 172/86
[2023-01-08] MEDS: metroNIDAZOLE 500 MG TAB PO SCH ×2 (05:50→13:14)
[2023-01-08] MEDS: NYSTATIN (MOUTH-THROAT) 500,000 UNITS/5 ML SUSP MT SCH ×2 (05:50→12:34)
[2023-01-08] MEDS: METOCLOPRAMIDE HCL 5MG/ml INJ 2ml VIAL IV SCH ×2 (05:50→12:34)
[2023-01-08] MEDS: ACCU-CHEK COMFORT CURVE STRIP VI SCH ×2 (05:55→12:00)
[2023-01-08] MEDS: InsuLIN REG 1unit/0.01ml Soln (100units/ml) SC SCH ×2 (06:16→12:40)
[2023-01-08] MEDS: INSULIN LANTUS (GLARGINE) 1 /0.01ml (100units/ml) SC SCH (06:17)
[2023-01-08] MEDS: SUCRALFATE 1 GM/10 ML ORAL SUSP PO SCH ×2 (06:17→11:30)
[2023-01-08 09:00] VITALS: BP 180/100
[2023-01-08] MEDS: PANTOPRAZOLE 40 MG/10 ML VIAL INJ IV SCH (09:28)
[2023-01-08] MEDS: ISOSORBIDE MONONITRATE ER 60 MG TAB PO SCH (09:30)
[2023-01-08] MEDS: amLODIPine BESYLATE 5 MG TAB PO SCH (09:31)
[2023-01-08] MEDS: CARVEDILOL 12.5 MG TAB PO SCH (09:31)
[2023-01-08] MEDS ORDERED: PATIENTS OWN MEDICATION (Clopidogrel Bisulfate (Clopidogrel) 75 MG) PO SCH (10:00)
[2023-01-08] MEDS ORDERED: CLOPIDOGREL BISULFATE 75 MG TAB PO SCH (10:00)
[2023-01-08] MEDS ORDERED: HCTZ 25 MG TAB PO SCH (10:00)
[2023-01-08] MEDS ORDERED: LISINOPRIL 20 MG TAB PO SCH (10:00)
[2023-01-08] MEDS ORDERED: ASPirin-EC 81 mg tab PO SCH (10:00)
[2023-01-08 13:00] VITALS: BP 137/83
[2023-01-08] MEDS ORDERED: GABAPENTIN 400 MG CAP PO ONE (14:30)
[2023-01-08 14:33] VITALS: BP 137/83
[2023-01-08] MEDS ORDERED: GABAPENTIN 400 MG CAP PO SCH (22:00)
== END 2023-01-08 15:59 | disposition home or self-care (01) | DRG 241 ==
LOC: ER 17:22 → TELE 01-05 06:46 → TELE-WESTW 01-06 20:07 → WEST WING 01-08 01:50
PROVIDERS: ADMIT Nurse Practitioner Family; ATTEND Hospitalist
DX: K29.70 Gastritis, unspecified, without bleeding (principal); I11.0 Hypertensive heart disease with heart failure; K22.10 Ulcer of esophagus without bleeding; K80.20 Calculus of gallbladder without cholecystitis without obstruction; I25.10 Atherosclerotic heart disease of native coronary artery without angina pectoris; J98.11 Atelectasis; K21.00 Gastro-esophageal reflux disease with esophagitis, without bleeding; K29.80 Duodenitis without bleeding; K44.9 Diaphragmatic hernia without obstruction or gangrene; K52.9 Noninfective gastroenteritis and colitis, unspecified; Z20.822 Contact with and (suspected) exposure to COVID-19; E11.65 Type 2 diabetes mellitus with hyperglycemia
CPT/HCPCS: 36415; 71045; 74176; 80053; 80307; 81001; 82962; 83690; 83735; 83880; 84484; 85025; 85048; 85610; 85730; 87081; 87426; 93005; 96365; 96375; 99291; C9113; G0378; J0696; J1815; J2405; J3480; J3490

== ENCOUNTER 2023-02-08 09:38 | Inpatient (IN) | payer MEDICAID ==
[~2023-02-08] VITALS: Ht 172.7 cm; Wt 88.6 kg
[2023-02-08] MEDS: D5W/SOD CHL 0.45% 1,000 ML IV SCH (00:28)
[2023-02-08 10:16] LABS: Basophils # (auto) 0 10 ^3/uL (0-0.2); Basophils % (auto) 0.2 % (0.0-2.0); Eosinophils # (auto) 0 10 ^3/uL (0-0.8); Lymphocytes # (auto) 0.8 10 ^3/uL (0.4-5.4); Neutrophils # (auto) 9.5 10 ^3/uL (1.6-8.6)
[2023-02-08 10:17] LABS: Hematocrit 51.1 % (41.0-53.0); Hemoglobin 17.9 g/dL (13.5-17.5); Lymphocytes % (auto) 7.4 % (10.0-50.0); Mean Corpuscular Hemoglobin 30.8 pg (28.0-32.0); Mean Corpuscular Volume 88.1 fL (80.0-100.0); Monocytes # (auto) 0.6 10 ^3/uL (0-1.3); Monocytes % (auto) 5.1 % (0.0-12.0); Neutrophils % (auto) 87.3 % (37.0-80.0); Nucleated Red Blood Cells % 0.1 %; Red Blood Cells 5.81 10^6/uL (4.5-5.90); Red Cell Distribution Width 15.1 % (11.8-14.3); White Blood Cell 10.9 10^3/uL (4.4-10.8)
[2023-02-08 10:42] LABS: Albumin 4.5 g/dL (3.4-5.0); Potassium 3.5 mmol/L (3.5-5.1)
[2023-02-08 10:45] LABS: BUN/Creatinine Ratio 30.1 (10.0-20.0); Bilirubin, Total 1.4 mg/dL (0.2-1.0)
[2023-02-08 10:50] LABS: Urine Bacteria NONE SEEN /hpf (None Seen); Urine Blood Negative /uL (Negative); Urine Specific Gravity 1.029 (1.001-1.035); Urine WBC <1 /hpf (0 - 3)
[2023-02-08] MEDS ORDERED: SODIUM CHLORIDE 0.9% 1,000 ML IV ONE (11:00)
[2023-02-08] MEDS ORDERED: ONDANSETRON HCL 4 MG/2 ML VIAL IM ONE (11:00)
[2023-02-08] MEDS ORDERED: SODIUM BICARBONATE 8.4 % INJ 50ML VIAL IV ONE (11:15)
[2023-02-08] MEDS ORDERED: POTASSIUM CHL 20MEQ/100ML 100 ML IV PRN (11:15)
[2023-02-08] MEDS ORDERED: DEXTROSE (50%) 50ML SYRG IV PRN ×2 (11:15→23:45)
[2023-02-08] MEDS ORDERED: InsuLIN R (HUMAN) 100 UNITS in SODIUM CHL 0.9% 99 ML IV SCH (11:15)
[2023-02-08] MEDS: ACCU-CHEK COMFORT CURVE STRIP VI SCH ×8 (12:00→22:34)
[2023-02-08 12:14] LABS: Lactic Acid w/Reflex 4.4 mmol/L (0.4-2.0)
[2023-02-08 12:22] LABS: Magnesium 2.9 mg/dL (1.6-2.6); Phosphorus 5.2 mg/dL (2.5-4.90)
[2023-02-08] MEDS: SODIUM CHLORIDE 0.9% 1,000 ML IV SCH ×4 (12:56→20:24)
[2023-02-08] MEDS ORDERED: MORPHINE SULFATE INJ 2 MG/ml SYRG IV PRN (13:15)
[2023-02-08] MEDS ORDERED: NITROGLYCERIN 0.4 MG SL TAB SL PRN (13:15)
[2023-02-08] MEDS ORDERED: ACETAMINOPHEN 325 MG TAB PO PRN (13:15)
[2023-02-08] MEDS ORDERED: ALBUTEROL SULF 2.5 MG/0.5ML(0.5%) NEB SOLN NEB PRN (13:15)
[2023-02-08] MEDS ORDERED: DOCUSATE SOD 100 MG CAP PO PRN (13:15)
[2023-02-08] MEDS: ONDANSETRON HCL 4 MG/2 ML VIAL IV PRN ×2 (14:11→21:41)
[2023-02-08] MEDS: HYDROcodone-ACET 5/325MG TAB PO PRN ×2 (14:39→21:41)
[2023-02-08 15:01] LABS: Potassium 3.1 mmol/L (3.5-5.1)
[2023-02-08 15:04] LABS: BUN/Creatinine Ratio 36.4 (10.0-20.0); Calcium 9.6 mg/dL (8.5-10.1)
[2023-02-08] MEDS ORDERED: SODIUM CHLORIDE 0.9% 1,000 ML IV SCH ×2 (15:15→17:15)
[2023-02-08] MEDS: SUCRALFATE 1 GM/10 ML ORAL SUSP PO SCH ×2 (18:27→21:41)
[2023-02-08] MEDS: ATORVASTATIN 20 MG TAB PO SCH (18:27)
[2023-02-08 18:43] LABS: Calcium 8.9 mg/dL (8.5-10.1); Potassium 3.2 mmol/L (3.5-5.1)
[2023-02-08 18:45] LABS: BUN/Creatinine Ratio 46.6 (10.0-20.0)
[2023-02-08] MEDS: CARVEDILOL 12.5 MG TAB PO SCH (21:42)
[2023-02-08] MEDS: amLODIPine BESYLATE 5 MG TAB PO SCH (21:43)
[2023-02-08 22:35] LABS: BUN/Creatinine Ratio 43.9 (10.0-20.0); Calcium 8.9 mg/dL (8.5-10.1)
[2023-02-09] MEDS: ACCU-CHEK COMFORT CURVE STRIP VI SCH ×6 (00:56→17:12)
[2023-02-09] MEDS: InsuLIN REG 1unit/0.01ml Soln (100units/ml) SC SCH ×5 (01:00→16:00)
[2023-02-09 02:22] LABS: BUN/Creatinine Ratio 47.1 (10.0-20.0); Calcium 8.9 mg/dL (8.5-10.1); Potassium 3.2 mmol/L (3.5-5.1)
[2023-02-09 03:45] VITALS: BP 139/74
[2023-02-09] MEDS: HYDROcodone-ACET 5/325MG TAB PO PRN ×3 (04:36→18:00)
[2023-02-09 06:04] LABS: Basophils # (auto) 0 10 ^3/uL (0-0.2); Basophils % (auto) 0.2 % (0.0-2.0); Eosinophils # (auto) 0 10 ^3/uL (0-0.8); Hematocrit 40.5 % (41.0-53.0); Hemoglobin 14.3 g/dL (13.5-17.5); Lymphocytes # (auto) 0.9 10 ^3/uL (0.4-5.4); Lymphocytes % (auto) 8.4 % (10.0-50.0); Mean Corpuscular Hemoglobin 31.1 pg (28.0-32.0); Mean Corpuscular Hgb Conc. 35.4 g/dL (32.0-36.0); Mean Corpuscular Volume 87.9 fL (80.0-100.0); Monocytes # (auto) 0.9 10 ^3/uL (0-1.3); Monocytes % (auto) 7.8 % (0.0-12.0); Neutrophils # (auto) 9.2 10 ^3/uL (1.6-8.6); Neutrophils % (auto) 83.6 % (37.0-80.0); Nucleated Red Blood Cells % 0.1 %; Red Blood Cells 4.61 10^6/uL (4.5-5.90); Red Cell Distribution Width 14.8 % (11.8-14.3); White Blood Cell 11.1 10^3/uL (4.4-10.8)
[2023-02-09 06:23] LABS: BUN/Creatinine Ratio 48.4 (10.0-20.0); Calcium 8.2 mg/dL (8.5-10.1); Potassium 3.2 mmol/L (3.5-5.1)
[2023-02-09] MEDS: SUCRALFATE 1 GM/10 ML ORAL SUSP PO SCH ×3 (06:51→17:51)
[2023-02-09 09:00] VITALS: BP 167/84
[2023-02-09] MEDS: SODIUM CHLORIDE 0.9% 1,000 ML IV SCH ×2 (09:05→12:47)
[2023-02-09] MEDS: D5W/SOD CHL 0.45% 1,000 ML IV SCH (09:06)
[2023-02-09] MEDS ORDERED: PANTOPRAZOLE 40 MG TAB PO SCH (10:00)
[2023-02-09] MEDS ORDERED: CLOPIDOGREL BISULFATE 75 MG TAB PO SCH (10:00)
[2023-02-09] MEDS ORDERED: ASPirin-EC 81 mg tab PO SCH (10:00)
[2023-02-09] MEDS: CARVEDILOL 12.5 MG TAB PO SCH (10:11)
[2023-02-09] MEDS: amLODIPine BESYLATE 5 MG TAB PO SCH (10:12)
[2023-02-09] MEDS: ONDANSETRON HCL 4 MG/2 ML VIAL IV PRN (10:15)
[2023-02-09 10:49] LABS: Calcium 8.4 mg/dL (8.5-10.1); Potassium 3.3 mmol/L (3.5-5.1)
[2023-02-09] MEDS ORDERED: POTASSIUM CHL 20MEQ/100ML 100 ML IV ONE (11:45)
[2023-02-09] MEDS ORDERED: INSULIN LANTUS (GLARGINE) 1 /0.01ml (100units/ml) SC SCH (11:45)
[2023-02-09 13:00] VITALS: BP 174/83
[2023-02-09] MEDS ORDERED: hydrALAZINE HCL 20 MG/ML VL IV PRN (14:15)
[2023-02-09] MEDS ORDERED: LISINOPRIL 20 MG TAB PO ONE (14:15)
[2023-02-09 14:34] LABS: BUN/Creatinine Ratio 42.6 (10.0-20.0); Calcium 8.6 mg/dL (8.5-10.1); Potassium 3.4 mmol/L (3.5-5.1)
[2023-02-09 17:11] VITALS: BP 141/71
[2023-02-09] MEDS: ATORVASTATIN 20 MG TAB PO SCH (17:51)
[2023-02-09 18:39] LABS: Calcium 8.5 mg/dL (8.5-10.1); Potassium 3.4 mmol/L (3.5-5.1)
[2023-02-09 18:49] VITALS: BP 141/71
[2023-02-10] MEDS ORDERED: LISINOPRIL 20 MG TAB PO SCH (10:00)
== END 2023-02-09 20:45 | disposition home or self-care (01) | DRG 420 ==
LOC: ER 09:38 → TELE 13:14 → TELE-WESTW 02-09 08:46
PROVIDERS: ADMIT Internal Medicine; ATTEND Internal Medicine
DX: E11.10 Type 2 diabetes mellitus with ketoacidosis without coma (principal); N17.9 Acute kidney failure, unspecified; I11.0 Hypertensive heart disease with heart failure; I50.9 Heart failure, unspecified; E78.5 Hyperlipidemia, unspecified; I25.10 Atherosclerotic heart disease of native coronary artery without angina pectoris; K80.20 Calculus of gallbladder without cholecystitis without obstruction; E87.6 Hypokalemia; Z86.73 Personal history of transient ischemic attack (TIA), and cerebral infarction without residual deficits; Z91.199 Patient's noncompliance with other medical treatment and regimen due to unspecified reason; Z98.61 Coronary angioplasty status
CPT/HCPCS: 36415; 36600; 71045; 74176; 80048; 80053; 81001; 82010; 82805; 82962; 83605; 83690; 83735; 83930; 84100; 84484; 85025; 87040; 87081; 93005; 96365; 96366; G0378; J1815; J2405; J3480

== ENCOUNTER 2023-04-13 16:11 | Emergency (ER) | payer SELFPAY ==
[~2023-04-13] VITALS: Ht 172.7 cm; Wt 94.1 kg
[~2023-04-13 16:11] MED LIST changes: -AMLO-489 PO; +AMLO1TAB22 PO; -INSU100I44 SC; +INSU100I54 SC; -NYS5LQ MT; -SUCR1SUS10 PO; +SUCR1SUS26 PO
[2023-04-13 17:01] LABS: Basophils # (auto) 0.1 10 ^3/uL (0-0.2); Basophils % (auto) 1.5 % (0.0-2.0); Eosinophils # (auto) 0.2 10 ^3/uL (0-0.8); Eosinophils % (auto) 3.6 % (0.0-7.0); Hematocrit 43.3 % (41.0-53.0); Hemoglobin 15.2 g/dL (13.5-17.5); Lymphocytes # (auto) 1.2 10 ^3/uL (0.4-5.4); Lymphocytes % (auto) 19.5 % (10.0-50.0); Mean Corpuscular Hemoglobin 30.7 pg (28.0-32.0); Mean Corpuscular Hgb Conc. 35.2 g/dL (32.0-36.0); Mean Corpuscular Volume 87.3 fL (80.0-100.0); Monocytes # (auto) 0.5 10 ^3/uL (0-1.3); Monocytes % (auto) 7.3 % (0.0-12.0); Neutrophils # (auto) 4.2 10 ^3/uL (1.6-8.6); Neutrophils % (auto) 68.1 % (37.0-80.0); Nucleated Red Blood Cells % 0.3 %; Red Blood Cells 4.96 10^6/uL (4.5-5.90); Red Cell Distribution Width 14.5 % (11.8-14.3); White Blood Cell 6.2 10^3/uL (4.4-10.8)
[2023-04-13 17:10] LABS: Albumin 3.7 g/dL (3.4-5.0); Calcium 8.9 mg/dL (8.5-10.1); Magnesium 2.6 mg/dL (1.6-2.6); Potassium 3.9 mmol/L (3.5-5.1)
[2023-04-13 17:13] LABS: BUN/Creatinine Ratio 22.3 (10.0-20.0); Bilirubin, Total 0.8 mg/dL (0.2-1.0)
[2023-04-13 17:16] LABS: INR 1.05 (0.9-1.15); Partial Thromboplastin Time 33.9 SEC (24.5-34.5)
[2023-04-13 22:01] VITALS: BP 166/88
[2023-04-13] MEDS ORDERED: METOCLOPRAMIDE HCL 5MG/ml INJ 2ml VIAL IM ONE (22:15)
[2023-04-13] MEDS ORDERED: KETOROLAC TROMETH 30 MG/ML 1ML VIAL IM ONE (22:15)
== END 2023-04-14 02:14 | disposition left against medical advice (07) ==
LOC: ER 16:11
DX: S37.009A Unspecified injury of unspecified kidney, initial encounter (principal); R51.9 Headache, unspecified; E86.0 Dehydration; R79.89 Other specified abnormal findings of blood chemistry; E11.65 Type 2 diabetes mellitus with hyperglycemia; H53.8 Other visual disturbances; I25.10 Atherosclerotic heart disease of native coronary artery without angina pectoris; E78.5 Hyperlipidemia, unspecified; I11.0 Hypertensive heart disease with heart failure; I50.89 Other heart failure; F12.90 Cannabis use, unspecified, uncomplicated; Z79.4 Long term (current) use of insulin; Z79.899 Other long term (current) drug therapy; Z79.82 Long term (current) use of aspirin; Z98.890 Other specified postprocedural states; X58.XXXA Exposure to other specified factors, initial encounter; Y93.89 Activity, other specified; Y92.89 Other specified places as the place of occurrence of the external cause; Y99.8 Other external cause status
CPT/HCPCS: 36415; 70450; 71045; 80053; 82962; 83735; 83880; 84484; 85025; 85610; 85730; 93005; 96372; 99285; J1885; J2765; J7030

== ENCOUNTER → 2023-04-17 | Emergency (ER) | payer SELFPAY ==
[~2023-04-17] VITALS: Ht 172.7 cm; Wt 95.0 kg
[~2023-04-17] MED LIST changes: +KETOROLAC TROMETH 30 MG/ML 1ML VIAL IV ONE; +LORazepam 2MG/ML-1ML VIAL IV ONE; +MELO-335 PO; +METO-281 PO; +PROCHLORPERAZINE EDISYLATE 5 MG/ML 2ML VIAL IM ONE; +SODIUM CHLORIDE 0.9% 1,000 ML IV ONE
[2023-04-17 13:41] LABS: BUN/Creatinine Ratio 21.6 (10.0-20.0); Calcium 9.3 mg/dL (8.5-10.1); Potassium 4.1 mmol/L (3.5-5.1)
[2023-04-17 13:43] LABS: Bilirubin, Total 0.5 mg/dL (0.2-1.0); Total Protein 7.6 g/dL (6.4-8.2)
[2023-04-17 13:55] LABS: Basophils # (auto) 0.1 10 ^3/uL (0-0.2); Basophils % (auto) 0.9 % (0.0-2.0); Eosinophils # (auto) 0 10 ^3/uL (0-0.8); Eosinophils % (auto) 0.5 % (0.0-7.0); Hematocrit 46.4 % (41.0-53.0); Hemoglobin 16.2 g/dL (13.5-17.5); Lymphocytes # (auto) 0.9 10 ^3/uL (0.4-5.4); Lymphocytes % (auto) 12.5 % (10.0-50.0); Mean Corpuscular Hemoglobin 30.5 pg (28.0-32.0); Mean Corpuscular Hgb Conc. 34.8 g/dL (32.0-36.0); Mean Corpuscular Volume 87.5 fL (80.0-100.0); Monocytes # (auto) 0.2 10 ^3/uL (0-1.3); Monocytes % (auto) 2.6 % (0.0-12.0); Neutrophils # (auto) 6.1 10 ^3/uL (1.6-8.6); Neutrophils % (auto) 83.5 % (37.0-80.0); Nucleated Red Blood Cells % 0.6 %; Red Cell Distribution Width 13.9 % (11.8-14.3); White Blood Cell 7.3 10^3/uL (4.4-10.8)
[2023-04-17 19:14] VITALS: BP 157/113
== END | disposition home or self-care (01) ==
LOC: EDUNIT# 11:56 → ER 11:57 → EDBD 11:57
DX: R51.9 Headache, unspecified (principal); Z79.84 Long term (current) use of oral hypoglycemic drugs; Z79.82 Long term (current) use of aspirin; Z79.01 Long term (current) use of anticoagulants; Z79.899 Other long term (current) drug therapy
CPT/HCPCS: 36415; 70450; 80053; 84484; 85025; 96360; 96372; 99285; J0780; J7030

== ENCOUNTER 2023-06-14 13:22 | Inpatient (IN) | payer MEDICAID ==
[~2023-06-14] VITALS: Ht 172.7 cm; Wt 91.0 kg
[~2023-06-14 13:22] MED LIST changes: -KETOROLAC TROMETH 30 MG/ML 1ML VIAL IV ONE; -LORazepam 2MG/ML-1ML VIAL IV ONE; -PROCHLORPERAZINE EDISYLATE 5 MG/ML 2ML VIAL IM ONE; -SODIUM CHLORIDE 0.9% 1,000 ML IV ONE
[2023-06-14 13:57] LABS: Basophils # (auto) 0 10 ^3/uL (0-0.2); Basophils % (auto) 0.1 % (0.0-2.0); Eosinophils # (auto) 0 10 ^3/uL (0-0.8); Hematocrit 50.1 % (41.0-53.0); Hemoglobin 17.1 g/dL (13.5-17.5); Lymphocytes # (auto) 0.7 10 ^3/uL (0.4-5.4); Lymphocytes % (auto) 4.1 % (10.0-50.0); Mean Corpuscular Hemoglobin 30.8 pg (28.0-32.0); Mean Corpuscular Hgb Conc. 34.2 g/dL (32.0-36.0); Mean Corpuscular Volume 90.3 fL (80.0-100.0); Monocytes # (auto) 1.1 10 ^3/uL (0-1.3); Monocytes % (auto) 6.2 % (0.0-12.0); Neutrophils # (auto) 15.9 10 ^3/uL (1.6-8.6); Neutrophils % (auto) 89.6 % (37.0-80.0); Red Blood Cells 5.55 10^6/uL (4.5-5.90); Red Cell Distribution Width 15.1 % (11.8-14.3); White Blood Cell 17.8 10^3/uL (4.4-10.8)
[2023-06-14 14:00] VITALS: PULSE 106; RESP 25; O2SAT 99
[2023-06-14] MEDS ORDERED: MORPHINE SULFATE 4 MG/ML SYR/VIAL IV ONE (14:15)
[2023-06-14] MEDS ORDERED: METOCLOPRAMIDE HCL 5MG/ml INJ 2ml VIAL IV ONE (14:15)
[2023-06-14] MEDS ORDERED: InsuLIN REG 1unit/0.01ml Soln (100units/ml) IV ONE (14:15)
[2023-06-14] MEDS ORDERED: SODIUM CHLORIDE 0.9% 1,000 ML IVB ONE (14:15)
[2023-06-14] MEDS ORDERED: PANTOPRAZOLE 40 MG/10 ML VIAL INJ IV ONE (14:15)
[2023-06-14] MEDS ORDERED: ONDANSETRON HCL 4 MG/2 ML VIAL IV ONE (14:15)
[2023-06-14] MEDS ORDERED: ASPirin 81 mg TAB PO ONE (14:15)
[2023-06-14 14:34] LABS: Alanine Aminotransferase 13 U/L (7-40); Albumin 4.9 g/dL (3.2-4.8); Alkaline Phosphatase 84 U/L (46-116); Anion Gap 24.6 (5-15); Aspartate Aminotransferase < 8 U/L (13-40); Blood Urea Nitrogen 37 mg/dL (9-23); Calcium 10.2 mg/dL (8.5-10.1); Carbon Dioxide 17.4 mmol/L (20-30); Chloride 99 mmol/L (98-107); Potassium 3.8 mmol/L (3.5-5.1); Sodium 141 mmol/L (136-145)
[2023-06-14 14:35] LABS: Bilirubin, Total 1.3 mg/dL (0.2-1.0)
[2023-06-14 14:44] LABS: Glucose 688 mg/dL (74-106)
[2023-06-14 14:48] LABS: Urine WBC None Seen /hpf (0 - 3)
[2023-06-14 15:04] LABS: Base Excess -2.4 mmol/L (-2.0-2.0)
[2023-06-14 15:14] LABS: Amphetamine Screen, Urine Neg (NEGATIVE); Barbiturate Scree,Urine Neg (NEGATIVE); Benzodiazephine Screen, Urine Neg (NEGATIVE); Cocaine Screen, Urine Neg (NEGATIVE); Opiate Scree,Urine Neg (NEGATIVE)
[2023-06-14 15:15] LABS: Cannabinoid Screen, Urine Neg (NEGATIVE); Phencyclidine Screen, Urine Neg (NEGATIVE)
[2023-06-14 15:21] LABS: INR 0.99 (0.9-1.15); Partial Thromboplastin Time 27.6 SEC (24.5-34.5); Prothrombin Time 10.4 sec (9.3-11.8)
[2023-06-14 15:32] LABS: Urine Bacteria NONE SEEN /hpf (None Seen); Urine Blood Negative /uL (Negative); Urine Clarity Clear (Clear); Urine Color Colorless (Yellow); Urine Protein, UAD Negative (Negative); Urine Urobilinogen Normal (Negative)
[2023-06-14] MEDS ORDERED: InsuLIN REG 1unit/0.01ml Soln (100units/ml) SC ONE (15:45)
[2023-06-14] MEDS ORDERED: SODIUM CHLORIDE 0.9% 1,000 ML IV ONE (15:45)
[2023-06-14] MEDS ORDERED: InsuLIN R (HUMAN) 100 UNITS in SODIUM CHL 0.9% 99 ML IV SCH (16:45)
[2023-06-14] MEDS ORDERED: DEXTROSE (50%) 50ML SYRG IV PRN (16:45)
[2023-06-14] MEDS ORDERED: NITROGLYCERIN 0.4 MG SL TAB SL PRN (17:30)
[2023-06-14] MEDS ORDERED: MORPHINE SULFATE INJ 2 MG/ml SYRG IV PRN (17:30)
[2023-06-14] MEDS ORDERED: ACETAMINOPHEN 325 MG TAB PO PRN (17:30)
[2023-06-14] MEDS: ACCU-CHEK COMFORT CURVE STRIP VI SCH ×4 (17:45→22:40)
[2023-06-14] MEDS: SODIUM CHLORIDE 0.9% 1,000 ML IV SCH (18:07)
[2023-06-14 18:33] LABS: Chloride 108 mmol/L (98-107); Potassium 3.6 mmol/L (3.5-5.1); Sodium 145 mmol/L (136-145)
[2023-06-14 18:34] LABS: Anion Gap 15.8 (5-15); Calcium 8.9 mg/dL (8.5-10.1); Carbon Dioxide 21.2 mmol/L (20-30)
[2023-06-14 18:39] LABS: BUN/Creatinine Ratio 26.3 (10.0-20.0); Blood Urea Nitrogen 36 mg/dL (9-23)
[2023-06-14 18:53] LABS: Glucose 521 mg/dL (74-106)
[2023-06-14 19:30] VITALS: PULSE 91; RESP 19; O2SAT 99
[2023-06-14] MEDS: HYDROcodone-ACET 5/325MG TAB PO PRN (20:47)
[2023-06-14] MEDS: ONDANSETRON HCL 4 MG/2 ML VIAL IV PRN (20:47)
[2023-06-14 22:16] LABS: Chloride 107 mmol/L (98-107); Potassium 3.7 mmol/L (3.5-5.1); Sodium 143 mmol/L (136-145)
[2023-06-14 22:17] LABS: Anion Gap 9.4 (5-15); Carbon Dioxide 26.6 mmol/L (20-30)
[2023-06-14 22:22] LABS: BUN/Creatinine Ratio 29.8 (10.0-20.0); Blood Urea Nitrogen 34 mg/dL (9-23)
[2023-06-14 22:23] LABS: Glucose 341 mg/dL (74-106); Magnesium 2.1 mg/dL (1.6-2.6)
[2023-06-14 22:25] LABS: Phosphorus 2.6 mg/dL (2.4-5.1)
[2023-06-15] MEDS: ACCU-CHEK COMFORT CURVE STRIP VI SCH ×10 (00:32→19:52)
[2023-06-15] MEDS: SODIUM CHLORIDE 0.9% 1,000 ML IV SCH ×3 (02:14→17:11)
[2023-06-15] MEDS: HYDROcodone-ACET 5/325MG TAB PO PRN ×4 (02:24→23:58)
[2023-06-15] MEDS: ONDANSETRON HCL 4 MG/2 ML VIAL IV PRN ×5 (02:25→20:03)
[2023-06-15 02:59] LABS: Albumin 3.9 g/dL (3.2-4.8); Alkaline Phosphatase 68 U/L (46-116); Anion Gap 6.9 (5-15); Aspartate Aminotransferase < 8 U/L (13-40); BUN/Creatinine Ratio 28.7 (10.0-20.0); Blood Urea Nitrogen 29 mg/dL (9-23); Calcium 8.9 mg/dL (8.7-10.4); Carbon Dioxide 28.1 mmol/L (20-30); Chloride 108 mmol/L (98-107); Glucose 280 mg/dL (74-106); Magnesium 2.1 mg/dL (1.6-2.6); Potassium 3.5 mmol/L (3.5-5.1); Sodium 143 mmol/L (136-145)
[2023-06-15 03:00] LABS: Bilirubin, Total 0.7 mg/dL (0.2-1.0); Phosphorus 2.8 mg/dL (2.4-5.1); Total Protein 6.2 g/dL (5.7-8.2)
[2023-06-15 03:58] LABS: Alanine Aminotransferase < 9 U/L (7-40)
[2023-06-15] MEDS ORDERED: D5W/SOD CHL 0.45%/KCL 20MEQ 1,000 ML IV SCH (04:15)
[2023-06-15] MEDS: hydrALAZINE HCL 20 MG/ML VL IV PRN ×3 (04:29→17:35)
[2023-06-15 05:24] LABS: Chloride 107 mmol/L (98-107); Potassium 3.5 mmol/L (3.5-5.1); Sodium 142 mmol/L (136-145)
[2023-06-15 05:25] LABS: Anion Gap 6.5 (5-15); Calcium 9.1 mg/dL (8.7-10.4); Carbon Dioxide 28.5 mmol/L (20-30)
[2023-06-15 05:30] LABS: BUN/Creatinine Ratio 30.8 (10.0-20.0); Blood Urea Nitrogen 28 mg/dL (9-23); Glucose 272 mg/dL (74-106)
[2023-06-15 05:31] LABS: Magnesium 2.1 mg/dL (1.6-2.6)
[2023-06-15 05:32] LABS: Phosphorus 2.5 mg/dL (2.4-5.1)
[2023-06-15 05:37] LABS: Basophils # (auto) 0 10 ^3/uL (0-0.2); Basophils % (auto) 0.1 % (0.0-2.0); Eosinophils # (auto) 0 10 ^3/uL (0-0.8); Eosinophils % (auto) 0.1 % (0.0-7.0); Hematocrit 41.1 % (41.0-53.0); Hemoglobin 14.6 g/dL (13.5-17.5); Lymphocytes # (auto) 1.1 10 ^3/uL (0.4-5.4); Mean Corpuscular Hemoglobin 31.3 pg (28.0-32.0); Mean Corpuscular Hgb Conc. 35.7 g/dL (32.0-36.0); Mean Corpuscular Volume 87.7 fL (80.0-100.0); Monocytes # (auto) 0.8 10 ^3/uL (0-1.3); Monocytes % (auto) 6.9 % (0.0-12.0); Neutrophils # (auto) 10.1 10 ^3/uL (1.6-8.6); Neutrophils % (auto) 83.9 % (37.0-80.0); Nucleated Red Blood Cells % 0.1 %; Red Blood Cells 4.68 10^6/uL (4.5-5.90); Red Cell Distribution Width 15.3 % (11.8-14.3); White Blood Cell 12.1 10^3/uL (4.4-10.8)
[2023-06-15 07:48] VITALS: RESP 16; O2SAT 95
[2023-06-15] MEDS ORDERED: DEXTROSE (50%) 50ML SYRG IV PRN (09:45)
[2023-06-15] MEDS ORDERED: INSULIN LANTUS (GLARGINE) 1 /0.01ml (100units/ml) SC ONE (09:45)
[2023-06-15] MEDS: ENOXAPARIN SOD 40 MG/0.4 ML SYRINGE SC SCH (09:51)
[2023-06-15] MEDS: CARVEDILOL 12.5 MG TAB PO SCH ×2 (09:58→21:35)
[2023-06-15] MEDS: ASPirin-EC 81 mg tab PO SCH (09:58)
[2023-06-15] MEDS: CLOPIDOGREL BISULFATE 75 MG TAB PO SCH (09:58)
[2023-06-15] MEDS: amLODIPine BESYLATE 5 MG TAB PO SCH ×2 (09:58→21:34)
[2023-06-15] MEDS ORDERED: PATIENTS OWN MEDICATION (Lisinopril & Hydrochlorothiazi (Lisinopril/Hydrochlorothi) 1 TAB) PO SCH (10:00)
[2023-06-15 10:42] LABS: Anion Gap 8.8 (5-15); Carbon Dioxide 26.2 mmol/L (20-30); Chloride 105 mmol/L (98-107); Potassium 3.4 mmol/L (3.5-5.1); Sodium 140 mmol/L (136-145)
[2023-06-15 10:43] LABS: Calcium 9.4 mg/dL (8.5-10.1)
[2023-06-15 10:47] LABS: Glucose 239 mg/dL (74-106)
[2023-06-15 10:48] LABS: BUN/Creatinine Ratio 28.4 (10.0-20.0); Blood Urea Nitrogen 25 mg/dL (9-23)
[2023-06-15 10:50] LABS: Phosphorus 2.2 mg/dL (2.4-5.1)
[2023-06-15] MEDS: InsuLIN REG 1unit/0.01ml Soln (100units/ml) SC SCH ×3 (13:24→19:51)
[2023-06-15 14:38] LABS: Chloride 104 mmol/L (98-107); Potassium 3.5 mmol/L (3.5-5.1); Sodium 140 mmol/L (136-145)
[2023-06-15 14:39] LABS: Calcium 9.3 mg/dL (8.5-10.1)
[2023-06-15 14:44] LABS: Glucose 265 mg/dL (74-106)
[2023-06-15 14:45] LABS: BUN/Creatinine Ratio 25.6 (10.0-20.0); Blood Urea Nitrogen 20 mg/dL (9-23); Magnesium 1.9 mg/dL (1.6-2.6)
[2023-06-15 14:47] LABS: Phosphorus 2.4 mg/dL (2.4-5.1)
[2023-06-15] MEDS: GABAPENTIN 400 MG CAP PO SCH ×3 (14:53→21:34)
[2023-06-15 15:19] VITALS: BP 166/90; PULSE 88; RESP 16; TEMP 97.7; O2SAT 98
[2023-06-15 17:16] VITALS: BP 166/90; PULSE 88; RESP 16; TEMP 97.7; O2SAT 98
[2023-06-15] MEDS: ATORVASTATIN 20 MG TAB PO SCH (17:34)
[2023-06-15 18:22] LABS: Chloride 105 mmol/L (98-107); Potassium 3.6 mmol/L (3.5-5.1); Sodium 140 mmol/L (136-145)
[2023-06-15 18:23] LABS: Anion Gap 9.5 (5-15); Calcium 9.5 mg/dL (8.5-10.1); Carbon Dioxide 25.5 mmol/L (20-30)
[2023-06-15 18:28] LABS: BUN/Creatinine Ratio 29.1 (10.0-20.0); Blood Urea Nitrogen 23 mg/dL (9-23); Glucose 233 mg/dL (74-106)
[2023-06-15 18:29] LABS: Magnesium 1.9 mg/dL (1.6-2.6)
[2023-06-15 18:30] LABS: Phosphorus 2.6 mg/dL (2.4-5.1)
[2023-06-15 20:00] VITALS: PULSE 93
[2023-06-15 22:00] VITALS: BP 154/91; PULSE 95; RESP 20; TEMP 97.7; O2SAT 93
[2023-06-15 22:39] LABS: Chloride 104 mmol/L (98-107); Potassium 3.3 mmol/L (3.5-5.1); Sodium 140 mmol/L (136-145)
[2023-06-15 22:40] LABS: Anion Gap 10.6 (5-15); Calcium 9.7 mg/dL (8.5-10.1); Carbon Dioxide 25.4 mmol/L (20-30)
[2023-06-15 22:45] LABS: BUN/Creatinine Ratio 31.2 (10.0-20.0); Blood Urea Nitrogen 24 mg/dL (9-23); Glucose 227 mg/dL (74-106)
[2023-06-15 22:46] LABS: Magnesium 1.9 mg/dL (1.6-2.6)
[2023-06-15 22:47] LABS: Phosphorus 2.3 mg/dL (2.4-5.1)
[2023-06-16] VITALS (7 sets, daily range): BP systolic 142–182; BP diastolic 91–102; PULSE 78–101; RESP 18–21; TEMP 97.7–98.2; O2SAT 94–100
[2023-06-16] MEDS: InsuLIN REG 1unit/0.01ml Soln (100units/ml) SC SCH ×7 (00:02→23:52)
[2023-06-16] MEDS: ACCU-CHEK COMFORT CURVE STRIP VI SCH ×7 (00:03→23:59)
[2023-06-16] MEDS: ONDANSETRON HCL 4 MG/2 ML VIAL IV PRN ×3 (00:03→08:56)
[2023-06-16 02:45] LABS: Anion Gap 9.4 (5-15); Calcium 9.5 mg/dL (8.7-10.4); Carbon Dioxide 28.6 mmol/L (20-30); Chloride 104 mmol/L (98-107); Potassium 3.4 mmol/L (3.5-5.1); Sodium 142 mmol/L (136-145)
[2023-06-16 02:50] LABS: Glucose 218 mg/dL (74-106)
[2023-06-16] MEDS: SODIUM CHLORIDE 0.9% 1,000 ML IV SCH ×3 (02:50→16:18)
[2023-06-16 02:51] LABS: BUN/Creatinine Ratio 32.9 (10.0-20.0); Blood Urea Nitrogen 25 mg/dL (9-23)
[2023-06-16 02:53] LABS: Phosphorus 2.5 mg/dL (2.4-5.1)
[2023-06-16] MEDS: GABAPENTIN 400 MG CAP PO SCH ×4 (06:00→22:56)
[2023-06-16] MEDS: hydrALAZINE HCL 20 MG/ML VL IV PRN (06:40)
[2023-06-16 06:53] LABS: Chloride 103 mmol/L (98-107); Potassium 3.4 mmol/L (3.5-5.1); Sodium 142 mmol/L (136-145)
[2023-06-16 06:54] LABS: Calcium 9.8 mg/dL (8.7-10.4)
[2023-06-16 06:59] LABS: BUN/Creatinine Ratio 33.8 (10.0-20.0); Blood Urea Nitrogen 25 mg/dL (9-23); Glucose 212 mg/dL (74-106)
[2023-06-16 07:01] LABS: Phosphorus 2.4 mg/dL (2.4-5.1)
[2023-06-16] MEDS: CLOPIDOGREL BISULFATE 75 MG TAB PO SCH (10:15)
[2023-06-16] MEDS: amLODIPine BESYLATE 5 MG TAB PO SCH ×2 (10:15→21:36)
[2023-06-16] MEDS: ASPirin-EC 81 mg tab PO SCH (10:15)
[2023-06-16] MEDS: ENOXAPARIN SOD 40 MG/0.4 ML SYRINGE SC SCH (10:15)
[2023-06-16] MEDS: CARVEDILOL 12.5 MG TAB PO SCH ×2 (10:16→21:37)
[2023-06-16] MEDS ORDERED: cloNIDine HCL 0.1 MG TAB PO ONE (12:15)
[2023-06-16] MEDS: PROMETHAZINE HCL 25 MG/ML 1ML IV PRN ×2 (12:46→21:33)
[2023-06-16 13:12] LABS: Chloride 101 mmol/L (98-107); Potassium 3.6 mmol/L (3.5-5.1); Sodium 142 mmol/L (136-145)
[2023-06-16 13:13] LABS: Anion Gap 12.7 (5-15); Calcium 9.6 mg/dL (8.5-10.1); Carbon Dioxide 28.3 mmol/L (20-30)
[2023-06-16 13:18] LABS: BUN/Creatinine Ratio 25.6 (10.0-20.0); Blood Urea Nitrogen 20 mg/dL (9-23); Glucose 233 mg/dL (74-106)
[2023-06-16 13:20] LABS: Phosphorus 2.7 mg/dL (2.4-5.1)
[2023-06-16 15:28] LABS: Chloride 102 mmol/L (98-107); Potassium 3.4 mmol/L (3.5-5.1); Sodium 142 mmol/L (136-145)
[2023-06-16 15:29] LABS: Calcium 9.4 mg/dL (8.7-10.4)
[2023-06-16 15:34] LABS: Blood Urea Nitrogen 24 mg/dL (9-23); Glucose 227 mg/dL (74-106)
[2023-06-16 15:36] LABS: Phosphorus 2.6 mg/dL (2.4-5.1)
[2023-06-16] MEDS: HYDROcodone-ACET 5/325MG TAB PO PRN ×2 (16:18→21:36)
[2023-06-16] MEDS: ATORVASTATIN 20 MG TAB PO SCH (17:33)
[2023-06-16 18:43] LABS: Chloride 103 mmol/L (98-107); Potassium 3.5 mmol/L (3.5-5.1); Sodium 140 mmol/L (136-145)
[2023-06-16 18:44] LABS: Anion Gap 8.4 (5-15); Calcium 9.3 mg/dL (8.7-10.4); Carbon Dioxide 28.6 mmol/L (20-30)
[2023-06-16 18:49] LABS: BUN/Creatinine Ratio 28.4 (10.0-20.0); Blood Urea Nitrogen 21 mg/dL (9-23); Glucose 245 mg/dL (74-106)
[2023-06-16 18:51] LABS: Phosphorus 2.4 mg/dL (2.4-5.1)
[2023-06-16] MEDS: PANTOPRAZOLE 40 MG/10 ML VIAL INJ IV SCH (21:33)
[2023-06-17] MEDS: HYDROcodone-ACET 5/325MG TAB PO PRN ×2 (02:46→08:11)
[2023-06-17] MEDS: PROMETHAZINE HCL 25 MG/ML 1ML IV PRN ×2 (02:47→08:11)
[2023-06-17] MEDS: ACCU-CHEK COMFORT CURVE STRIP VI SCH ×3 (04:00→12:00)
[2023-06-17] MEDS: SODIUM CHLORIDE 0.9% 1,000 ML IV SCH ×2 (04:35→12:10)
[2023-06-17] MEDS: InsuLIN REG 1unit/0.01ml Soln (100units/ml) SC SCH ×3 (04:41→12:00)
[2023-06-17 05:00] VITALS: BP 135/77; PULSE 67; RESP 18; TEMP 98.1; O2SAT 97
[2023-06-17] MEDS: GABAPENTIN 400 MG CAP PO SCH (06:00)
[2023-06-17 08:00] VITALS: PULSE 67; PULSE 70; RESP 20; O2SAT 98
[2023-06-17 09:00] VITALS: BP 156/88; PULSE 67; RESP 20; TEMP 98.3; O2SAT 95
[2023-06-17] MEDS: PANTOPRAZOLE 40 MG/10 ML VIAL INJ IV SCH (09:24)
[2023-06-17] MEDS: amLODIPine BESYLATE 5 MG TAB PO SCH (09:24)
[2023-06-17] MEDS: ENOXAPARIN SOD 40 MG/0.4 ML SYRINGE SC SCH (09:24)
[2023-06-17] MEDS: CARVEDILOL 12.5 MG TAB PO SCH (09:25)
[2023-06-17] MEDS: ASPirin-EC 81 mg tab PO SCH (09:25)
[2023-06-17] MEDS: CLOPIDOGREL BISULFATE 75 MG TAB PO SCH (09:25)
[2023-06-17] MEDS: hydrALAZINE HCL 20 MG/ML VL IV PRN (09:25)
[2023-06-17 12:27] VITALS: BP 156/81; PULSE 80; RESP 20; TEMP 97.9; O2SAT 96
== END 2023-06-17 13:30 | disposition home or self-care (01) | DRG 420 ==
LOC: EDUNIT# 13:22 → EDBD 13:22 → ER 13:22 → TELE 17:31 → TELE-WESTW 06-15 15:19
PROVIDERS: ADMIT Internal Medicine; ATTEND Internal Medicine
DX: E11.10 Type 2 diabetes mellitus with ketoacidosis without coma (principal); N17.0 Acute kidney failure with tubular necrosis; I25.10 Atherosclerotic heart disease of native coronary artery without angina pectoris; E11.00 Type 2 diabetes mellitus with hyperosmolarity without nonketotic hyperglycemic-hyperosmolar coma (NKHHC); I11.0 Hypertensive heart disease with heart failure; R11.15 Cyclical vomiting syndrome unrelated to migraine; E78.5 Hyperlipidemia, unspecified; D72.829 Elevated white blood cell count, unspecified; G47.30 Sleep apnea, unspecified; F12.90 Cannabis use, unspecified, uncomplicated; Z79.4 Long term (current) use of insulin; Z86.73 Personal history of transient ischemic attack (TIA), and cerebral infarction without residual deficits; Z87.11 Personal history of peptic ulcer disease; Z91.148 Patient's other noncompliance with medication regimen for other reason; Z98.61 Coronary angioplasty status; K27.9 Peptic ulcer, site unspecified, unspecified as acute or chronic, without hemorrhage or perforation
CPT/HCPCS: 36415; 36600; 71045; 80048; 80053; 80307; 80320; 81001; 82010; 82805; 82962; 83735; 83880; 83930; 84100; 84443; 84484; 85025; 85610; 85730; 93005; 96361; 96365; 96367; 96372; 96375; 96376; 99291; C9113; G0378; J1815; J2405

== ENCOUNTER 2024-05-04 20:41 | Inpatient (IN) | payer MEDICAID ==
[~2024-05-04] VITALS: Ht 182.9 cm; Wt 93.6 kg
[~2024-05-04 20:41] MED LIST changes: -CAR125T PO; +CARV-216 PO; -MELO-335 PO; +MELO15TA29 PO
[2024-05-04] MEDS: HALOPERIDOL LACTATE 5 MG/ML INJ VIAL IM ONE (22:15)
[2024-05-04 22:38] LABS: Basophils # (auto) 0 10 ^3/uL (0-0.2); Basophils % (auto) 0.2 % (0.0-2.0); Eosinophils # (auto) 0 10 ^3/uL (0-0.8); Hematocrit 49.4 % (41.0-53.0); Hemoglobin 17.6 g/dL (13.5-17.5); Lymphocytes # (auto) 0.5 10 ^3/uL (0.4-5.4); Lymphocytes % (auto) 4.4 % (10.0-50.0); Mean Corpuscular Hemoglobin 31.4 pg (28.0-32.0); Mean Corpuscular Hgb Conc. 35.7 g/dL (32.0-36.0); Mean Corpuscular Volume 87.9 fL (80.0-100.0); Monocytes # (auto) 0.3 10 ^3/uL (0-1.3); Monocytes % (auto) 2.3 % (0.0-12.0); Neutrophils # (auto) 11.6 10 ^3/uL (1.6-8.6); Neutrophils % (auto) 93.1 % (37.0-80.0); Nucleated Red Blood Cells % 0.2 %; Red Blood Cells 5.62 10^6/uL (4.5-5.90); Red Cell Distribution Width 14.4 % (11.8-14.3); White Blood Cell 12.4 10^3/uL (4.4-10.8)
[2024-05-04 22:51] LABS: INR 1.03 (0.9-1.15); Partial Thromboplastin Time 27.2 SEC (24.5-34.5); Prothrombin Time 10.9 sec (9.3-11.8)
[2024-05-04] MEDS: SODIUM CHLORIDE 0.9% 1,000 ML IV ONE (23:41)
[2024-05-05] VITALS (9 sets, daily range): BP systolic 152–185; BP diastolic 89–101; PULSE 90–107; RESP 16–20; TEMP 98.3–98.7; O2SAT 95–100
[2024-05-05] MEDS: SODIUM CHLORIDE 0.9% 2,000 ML IV ONE (00:13)
[2024-05-05 01:52] LABS: Urine Bacteria None Seen /hpf (None Seen)
[2024-05-05 02:13] LABS: Amphetamine Screen, Urine Neg (NEGATIVE); Barbiturate Scree,Urine Neg (NEGATIVE); Benzodiazephine Screen, Urine Neg (NEGATIVE); Cocaine Screen, Urine Neg (NEGATIVE)
[2024-05-05] MEDS: PANTOPRAZOLE 40mg/50ML NS AE 50 ML IV ONE (02:13)
[2024-05-05] MEDS: metroNIDAZOLE 500MG/100ML 100 ML IV ONE (02:13)
[2024-05-05 02:14] LABS: Cannabinoid Screen, Urine Neg (NEGATIVE); Opiate Scree,Urine Neg (NEGATIVE); Phencyclidine Screen, Urine Neg (NEGATIVE)
[2024-05-05 02:22] LABS: Urine Blood Negative /uL (Negative); Urine Clarity Clear (Clear); Urine Color Light-Yellow (Yellow); Urine Protein, UAD Negative (Negative); Urine Urobilinogen Normal (Negative); Urine WBC <1 /hpf (0 - 3); Urine pH 5.5 (5.0-9.0)
[2024-05-05 02:28] LABS: Alanine Aminotransferase 10 U/L (7-40); Alkaline Phosphatase 85 U/L (46-116); Anion Gap 16 (5-15); Aspartate Aminotransferase < 8 U/L (13-40); BUN/Creatinine Ratio 17.8 (10.0-20.0); Bilirubin, Total 0.9 mg/dL (0.2-1.0); Blood Urea Nitrogen 18 mg/dL (9-23); Carbon Dioxide 19 mmol/L (20-30); Chloride 110 mmol/L (98-107); Glucose 299 mg/dL (74-106); Potassium 3.8 mmol/L (3.5-5.1); Sodium 145 mmol/L (136-145); Total Protein 6.7 g/dL (5.7-8.2)
[2024-05-05] MEDS: SODIUM CHLORIDE 0.9% 1,000 ML IV ONE ×2 (02:30→18:54)
[2024-05-05 02:43] LABS: Lactic Acid w/Reflex 2.8 mmol/L (0.4-2.0)
[2024-05-05] MEDS: ONDANSETRON HCL 4 MG/2 ML VIAL IV PRN ×2 (02:51→07:35)
[2024-05-05] MEDS: levoFLOXacin 500MG 100 ML IV ONE (03:18)
[2024-05-05] MEDS: IOHEXOL 350 MG/ML 100ML IJ ONE (05:28)
[2024-05-05] MEDS: PANTOPRAZOLE 40mg/50ML NS AE 50 ML IV SCH (05:50)
[2024-05-05] MEDS ORDERED: metroNIDAZOLE 500MG/100ML 100 ML IV SCH (06:00)
[2024-05-05] MEDS: MORPHINE SULFATE INJ 2 MG/ml SYRG IV PRN (07:36)
[2024-05-05 09:29] LABS: Hematocrit 47.9 % (41.0-53.0); Hemoglobin 16.4 g/dL (13.5-17.5)
[2024-05-05] MEDS: metroNIDAZOLE 500MG/100ML 100 ML IV SCH (09:55)
[2024-05-05] MEDS: OCTREOTIDE ACETATE 500 MCG in SODIUM CHL 0.9% 99 ML IV SCH (09:56)
[2024-05-05] MEDS: hydrALAZINE HCL 20 MG/ML VL IV PRN (09:57)
[2024-05-05] MEDS ORDERED: cloNIDine 0.2 mg/24hr 7DAY PATCH TD ONE (10:00)
[2024-05-05] MEDS ORDERED: DEXTROSE (50%) 50ML SYRG IV PRN (10:30)
[2024-05-05] MEDS: D5W/SOD CHL 0.45% 1,000 ML IV SCH (11:19)
[2024-05-05 11:55] LABS: Chloride 108 mmol/L (98-107); Potassium 4.2 mmol/L (3.5-5.1); Sodium 145 mmol/L (136-145)
[2024-05-05 11:56] LABS: Anion Gap 19 (5-15); Calcium 9.9 mg/dL (8.7-10.4); Carbon Dioxide 18 mmol/L (20-30)
[2024-05-05 12:01] LABS: BUN/Creatinine Ratio 20.8 (10.0-20.0); Blood Urea Nitrogen 22 mg/dL (9-23); Glucose 306 mg/dL (74-106)
[2024-05-05] MEDS: ONDANSETRON HCL 4 MG/2 ML VIAL IV ONE (12:45)
[2024-05-05] MEDS: METOCLOPRAMIDE HCL 5MG/ml INJ 2ml VIAL IV ONE (12:45)
[2024-05-05] MEDS ORDERED: MIDAZOLAM HCL 2MG/2ML 2ml VIAL (1mg/ml) IV PRN (12:45)
[2024-05-05] MEDS: LIDOCAINE VISCOUS 2% 15ML UD ONE (12:45)
[2024-05-05] MEDS ORDERED: PROPOFOL 10 MG/ML 20 ML IV ONE (13:03)
[2024-05-05] MEDS: levoFLOXacin 500MG 100 ML IV SCH (14:23)
[2024-05-05] MEDS: ACCU-CHEK COMFORT CURVE STRIP VI SCH (14:25)
[2024-05-05] MEDS: SUCRALFATE 1 GM/10 ML ORAL SUSP PO SCH (14:47)
[2024-05-05] MEDS: cloNIDine 0.2 mg/24hr 7DAY PATCH TD SCH (14:51)
[2024-05-05] MEDS: InsuLIN REG 1unit/0.01ml Soln (100units/ml) SC SCH (14:56)
[2024-05-05 15:58] LABS: Hematocrit 46.6 % (41.0-53.0); Hemoglobin 16.3 g/dL (13.5-17.5)
[2024-05-05 16:21] LABS: Lactic Acid w/Reflex 2.4 mmol/L (0.4-2.0)
[2024-05-05] MEDS ORDERED: SUCRALFATE 1 GM/10 ML ORAL SUSP GT SCH (17:00)
[2024-05-05] MEDS: SODIUM CHLORIDE 0.9% 1,000 ML IV SCH (18:54)
[2024-05-05] MEDS: INSULIN LANTUS (GLARGINE) 1 /0.01ml (100units/ml) SC SCH (18:56)
[2024-05-05] MEDS: amLODIPine BESYLATE 5 MG TAB PO SCH (21:32)
[2024-05-05] MEDS: CARVEDILOL 12.5 MG TAB PO SCH (21:32)
[2024-05-05 21:34] LABS: Chloride 107 mmol/L (98-107); Sodium 141 mmol/L (136-145)
[2024-05-05 21:35] LABS: Anion Gap 11 (5-15); Carbon Dioxide 23 mmol/L (20-30)
[2024-05-05 21:36] LABS: Calcium 9.5 mg/dL (8.7-10.4)
[2024-05-05 21:41] LABS: BUN/Creatinine Ratio 18.3 (10.0-20.0); Blood Urea Nitrogen 19 mg/dL (9-23); Glucose 339 mg/dL (74-106)
[2024-05-05] MEDS: PANTOPRAZOLE 40 MG/10 ML VIAL INJ IV SCH (21:46)
[2024-05-05] MEDS: LISINOPRIL 5 MG TAB PO SCH (21:46)
[2024-05-05] MEDS ORDERED: INSULIN LANTUS (GLARGINE) 1 /0.01ml (100units/ml) SC SCH (22:00)
[2024-05-06] VITALS (8 sets, daily range): BP systolic 154–169; BP diastolic 80–88; PULSE 68–86; RESP 15–20; TEMP 97.4–98.7; O2SAT 96–99
[2024-05-06 07:00] LABS: Basophils # (auto) 0 10 ^3/uL (0-0.2); Basophils % (auto) 0.3 % (0.0-2.0); Eosinophils # (auto) 0 10 ^3/uL (0-0.8); Hematocrit 41.4 % (41.0-53.0); Hemoglobin 14.8 g/dL (13.5-17.5); Lymphocytes # (auto) 0.9 10 ^3/uL (0.4-5.4); Lymphocytes % (auto) 8.2 % (10.0-50.0); Mean Corpuscular Hemoglobin 31.9 pg (28.0-32.0); Mean Corpuscular Hgb Conc. 35.8 g/dL (32.0-36.0); Mean Corpuscular Volume 89.1 fL (80.0-100.0); Monocytes # (auto) 0.6 10 ^3/uL (0-1.3); Monocytes % (auto) 5.8 % (0.0-12.0); Neutrophils # (auto) 9.1 10 ^3/uL (1.6-8.6); Neutrophils % (auto) 85.7 % (37.0-80.0); Nucleated Red Blood Cells % 0.1 %; Red Blood Cells 4.65 10^6/uL (4.5-5.90); Red Cell Distribution Width 14.8 % (11.8-14.3); White Blood Cell 10.6 10^3/uL (4.4-10.8)
[2024-05-06 07:25] LABS: Albumin 3.7 g/dL (3.2-4.8); Alkaline Phosphatase 70 U/L (46-116); Anion Gap 12 (5-15); Aspartate Aminotransferase 10 U/L (13-40); BUN/Creatinine Ratio 24.1 (10.0-20.0); Blood Urea Nitrogen 19 mg/dL (9-23); Calcium 9.2 mg/dL (8.7-10.4); Carbon Dioxide 24 mmol/L (20-30); Chloride 109 mmol/L (98-107); Lipase 25 U/L (12-53); Potassium 3.5 mmol/L (3.5-5.1); Sodium 145 mmol/L (136-145)
[2024-05-06 07:26] LABS: Bilirubin, Total 0.6 mg/dL (0.2-1.0)
[2024-05-06 07:31] LABS: Alanine Aminotransferase < 9 U/L (7-40); Glucose 196 mg/dL (74-106)
[2024-05-06] MEDS ORDERED: METOCLOPRAMIDE HCL 5MG/ml INJ 2ml VIAL IV SCH (10:00)
[2024-05-06] MEDS: METOCLOPRAMIDE HCL 5MG/ml INJ 2ml VIAL IV PRN (10:55)
[2024-05-06] MEDS: NYSTATIN (MOUTH-THROAT) 500,000 UNITS/5 ML SUSP MT SCH (13:23)
[2024-05-06] MEDS: METOCLOPRAMIDE HCL 5MG/ml INJ 2ml VIAL IV SCH (18:12)
[2024-05-06] MEDS: ONDANSETRON HCL 4 MG/2 ML VIAL IV PRN (20:41)
[2024-05-07] VITALS (8 sets, daily range): BP systolic 156–183; BP diastolic 78–96; PULSE 71–88; RESP 14–20; TEMP 97.9–98.6; O2SAT 95–99
[2024-05-08] VITALS (8 sets, daily range): BP systolic 141–163; BP diastolic 79–96; PULSE 66–81; RESP 17–20; TEMP 98–98.7; O2SAT 95–98
[2024-05-08] MEDS: BISACODYL 10 MG RECT SUPP PR ONE (15:46)
[2024-05-08] MEDS ORDERED: BISACODYL 10 MG RECT SUPP PR PRN (22:00)
[2024-05-09] VITALS (8 sets, daily range): BP systolic 122–157; BP diastolic 53–79; PULSE 61–73; RESP 16–20; TEMP 97.5–98.7; O2SAT 96–98
[2024-05-09] MEDS: SODIUM CHLORIDE 0.9% 1,000 ML IV SCH (11:45)
[2024-05-09 12:22] LABS: Basophils # (auto) 0 10 ^3/uL (0-0.2); Basophils % (auto) 0.4 % (0.0-2.0); Eosinophils # (auto) 0.1 10 ^3/uL (0-0.8); Eosinophils % (auto) 0.9 % (0.0-7.0); Hematocrit 41.7 % (41.0-53.0); Hemoglobin 15.1 g/dL (13.5-17.5); Lymphocytes # (auto) 1.2 10 ^3/uL (0.4-5.4); Lymphocytes % (auto) 18.8 % (10.0-50.0); Mean Corpuscular Hemoglobin 31.4 pg (28.0-32.0); Mean Corpuscular Hgb Conc. 36.3 g/dL (32.0-36.0); Mean Corpuscular Volume 86.5 fL (80.0-100.0); Monocytes # (auto) 0.7 10 ^3/uL (0-1.3); Monocytes % (auto) 10.4 % (0.0-12.0); Neutrophils # (auto) 4.4 10 ^3/uL (1.6-8.6); Neutrophils % (auto) 69.5 % (37.0-80.0); Nucleated Red Blood Cells % 0.3 %; Red Blood Cells 4.82 10^6/uL (4.5-5.90); White Blood Cell 6.3 10^3/uL (4.4-10.8)
[2024-05-09 12:34] LABS: Albumin 3.3 g/dL (3.2-4.8); Alkaline Phosphatase 61 U/L (46-116); Anion Gap 5 (5-15); Aspartate Aminotransferase < 8 U/L (13-40); Bilirubin, Total 0.8 mg/dL (0.2-1.0); Blood Urea Nitrogen 14 mg/dL (9-23); Calcium 8.8 mg/dL (8.7-10.4); Carbon Dioxide 28 mmol/L (20-30); Chloride 102 mmol/L (98-107); Glucose 194 mg/dL (74-106); Lipase 70 U/L (12-53); Magnesium 1.6 mg/dL (1.6-2.6); Potassium 3.2 mmol/L (3.5-5.1); Total Protein 5.4 g/dL (5.7-8.2)
[2024-05-09 12:37] LABS: Alanine Aminotransferase < 9 U/L (7-40); Sodium 135 mmol/L (136-145)
[2024-05-09] MEDS: GABAPENTIN 300 MG CAP PO SCH (14:01)
[2024-05-10] VITALS (7 sets, daily range): BP systolic 110–153; BP diastolic 60–96; PULSE 56–62; RESP 16–71; TEMP 37.1; O2SAT 95–99
== END 2024-05-10 18:00 | disposition home or self-care (01) | DRG 241 ==
LOC: ER 20:41 → EDBD 20:41 → TELE 05-05 05:06 → TELE-CENTR 05-05 06:40 → CENTRAL 05-09 14:01
PROVIDERS: ADMIT Hospitalist; ATTEND Hospitalist
PROC: 0DB68ZX Excision of Stomach, Via Natural or Artificial Opening Endoscopic, Diagnostic (ICD-10-PCS; 2024-05-05)
PROC: 0DB38ZX Excision of Lower Esophagus, Via Natural or Artificial Opening Endoscopic, Diagnostic (ICD-10-PCS; 2024-05-05)
PROC: 0DB98ZX Excision of Duodenum, Via Natural or Artificial Opening Endoscopic, Diagnostic (ICD-10-PCS; principal; 2024-05-05 12:47)
DX: K29.01 Acute gastritis with bleeding (principal); N17.0 Acute kidney failure with tubular necrosis; K22.11 Ulcer of esophagus with bleeding; E87.20 Acidosis, unspecified; K21.01 Gastro-esophageal reflux disease with esophagitis, with bleeding; K29.91 Gastroduodenitis, unspecified, with bleeding; K26.4 Chronic or unspecified duodenal ulcer with hemorrhage; K31.3 Pylorospasm, not elsewhere classified; E11.40 Type 2 diabetes mellitus with diabetic neuropathy, unspecified; K52.9 Noninfective gastroenteritis and colitis, unspecified; K44.9 Diaphragmatic hernia without obstruction or gangrene; E86.0 Dehydration; I25.10 Atherosclerotic heart disease of native coronary artery without angina pectoris; I11.0 Hypertensive heart disease with heart failure; I50.9 Heart failure, unspecified; E78.5 Hyperlipidemia, unspecified; K29.90 Gastroduodenitis, unspecified, without bleeding; F12.90 Cannabis use, unspecified, uncomplicated; K31.9 Disease of stomach and duodenum, unspecified; Z79.4 Long term (current) use of insulin; Z79.84 Long term (current) use of oral hypoglycemic drugs
CPT/HCPCS: 36415; 80048; 80053; 80307; 80320; 81001; 82140; 82962; 83605; 83690; 83735; 83880; 84484; 85014; 85018; 85025; 85610; 85730; 86850; 86900; 86901; 87040; 93005; 96361; 96365; 96367; 96368; 96375; 97110; 97163; 99291; G0378; J1815; J1956; J2405; J2470; J2704; J3490

== ENCOUNTER 2025-03-22 15:10 | Inpatient (IN) | payer MEDICAID ==
[~2025-03-22] VITALS: Ht 172.7 cm; Wt 105.0 kg
[~2025-03-22 15:10] MED LIST changes: -MELO15TA29 PO
[2025-03-22] MEDS: ONDANSETRON HCL 4 MG/2 ML VIAL IV ONE (15:30)
--- NOTE | 2025-03-22 15:44 | ECG ---
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
[2025-03-22] MEDS: SODIUM CHLORIDE 0.9% 1,000 ML IV ONE ×2 (15:45→20:15)
[2025-03-22] MEDS: PANTOPRAZOLE 40 MG/10 ML VIAL INJ IV ONE (15:49)
--- NOTE | 2025-03-22 16:12 | ED.PDOC ---
GI ASSESSMENT HPI Comments HPI: Poor Historian. Past Medical History: Stomach ulcer, hypertension, hyperlipidemia Past Surgical History: Cardiac stents 59y M who presents to the ED via EMS for chief complaint of nausea and vomiting. - pt states since yesterday, he has been having nausea with associated 2x coffee ground emesis episodes with associated generalized weakness and malaise - pt has associated umbilical abdominal pain, non-radiating, with no associated exacerbating or relieving factors - EMS arrived on scene with noted vitals : BP 150/109, heart rate 92, and 02 sat of 95% on room air - pt in the ED, noted severe malaise but otherwise is [id number] - pt denies any other symptoms at this time. Past Medical history: Stomach ulcer, hypertension, hyperlipidemia Past Surgical history: Cardiac stents Medications: denies Allergies: denies Social History: denies ETOH, denies tobacco use, endorses drug use(marijuana) REVIEW OF SYSTEMS: CONSTITUTIONAL: Denies acute: fever, diaphoresis, chills, HEAD: Denies acute: headache, photophobia Eyes: Denies acute: Double vision, vision loss, eye pain, eye discharge. EARS: Denies acute: tinnitus, hearing loss, ear discharge, ear pain, THROAT: Denies acute: sore throat, swelling, difficulty swallowing , pain with swallowing, change in voice. NECK: Denies acute: neck pain, neck swelling, stiff neck. HEART: Denies acute : chest pain, palpitations, LUNGS: Denies acute: SOB, wheezing, cough, hemoptysis ABDOMEN: Denies acute: diarrhea, melena , hematemesis, SKIN: Denies acute: rash, redness, lesions, itchiness. EXTREMITIES: Denies acute: calf pain, numbness, tingling, weakness, denies pain in extremity. Denies acute: Low back pain. Neuro: Denies acute: focal neurological deficit, motor or sensory focal neurological deficit, tremors, seizure like activity, confusion, dizziness, change in mental status, loss of bowel or bladder function, cauda equina like symptoms. : Denies acute: dysuria, hematuria, flank pain, increase in urinary frequency. PSYCH: Denies acute: hallucination, suicidal ideation, homicidal ideation. PHYSICAL EXAM: General: --[id number]------acute distress, awake and alert. Appears weak Head: normocephalic, atraumatic. Neck: supple, trachea is midline, no swelling. Throat: Normal phonation. Eyes:, no erythema, no purulent discharge, no proptosis, no icterus. Heart: regular rate, regular rhythm, no significant murmur appreciated. Lungs: no apparent respiratory distress, Able to speak in full sentences. No wheezing, no rhonchi, no crackles. No stridors Clear to auscultation bilaterally. Abdomen: Umbilical tender to palpation, non distended, soft, no guarding, no rebound, + bowel sounds. Neuro: Awake, Alert, oriented to name, self, situation, follows commands. Appears lethargic and weak GCS=15. Speech is normal. Skin: no petechia, no purpura, no cyanosis, non-pale, not jaundice. Lower extremities: --no - Pitting edema no deformity, no focal swelling, no calf TTP. Makes eye contact. moves all four extremities. Face: no apparent facial droop. ED COURSE: Chief Complaint: Nausea/Vomiting Time Seen by MD: 15:19 Primary Care Provider: unknown Reviewed Notes: Installation & Maintenance Executive Notes, Medications, Allergies Allergies: Coded Allergies: NO KNOWN ALLERGIES (Unverified , 12/17/22) Home Meds Active Scripts Metoclopramide Hcl (Reglan) 10 Mg Tab, 10 MG PO Q12HP PRN, #20 TAB Prov:ROSENDO NATHONY MD 04/17/23 Reported Medications Ertugliflozin l-Pyroglutamic A (Steglatro) 15 Mg Tab, 1 TAB PO DAILY 10/09/22 Sucralfate (CARAFATE SUSP) 1 Gm/10 Ml Ss, 10 ML PO QID, #1200 ML 3 Refills 10/09/22 Pantoprazole Sodium Sesquihydr (Protonix) 40 Mg Tab, 40 MG PO DAILY, #30 TAB 10/09/22 Insulin Lispro (Insulin Lispro Kwikpen) 100 Unit/Ml Inj, 15 UNIT SC TIDWM 10/09/22 Gabapentin (Gabapentin) 800 Mg Tab, 1 TAB PO TID 10/09/22 Isosorbide Mononitrate (Isosorbide Mononitrate Er) 30 Mg Tab, 1 TAB PO DAILY 10/09/22 Albuterol Sulfate (Albuterol Sulfate Hfa) 108 Mcg/Act Aer, 2 PUFF PO QIDP 10/09/22 Lisinopril & Hydrochlorothiazi (Lisinopril/Hydrochlorothi) 1 Tab Tab, 1 TAB PO BID 10/09/22 Tramadol Hcl (Tramadol Hcl) 50 Mg Tab, 1 TAB PO BIDPRN 10/09/22 Amlodipine Besylate (Amlodipine Besylate) 5 Mg Tab, 10 MG PO BID 05/03/20 Aspirin (Aspirin) 81 Mg Tab, 81 MG PO DAILY 05/03/20 Atorvastatin Calcium (ATORVASTATIN CALCIUM) 20 Mg Tab, 1 TAB PO QPM 05/03/20 Clopidogrel Bisulfate (CLOPIDOGREL) 75 Mg Tab, 75 MG PO DAILY 05/03/20 Carvedilol (COREG) 12.5 Mg Tab, 6.25 MG PO BID 05/03/20 Insulin Glargine (Basaglar Kwikpen) 100 Unit/Ml Inj, 35 UNIT SC BID, INJ 05/03/20 Ondansetron (Zofran) 8 Mg Tab, 1 TAB PO Q8HR PRN for NAUSEA / VOMITING 05/03/20 Information Source: Patient, Emergency Med Personnel Mode of Arrival: EMS Past Medical History PAST MEDICAL HISTORY: CAD, CHF, DM, High Lipids, HTN, ID Surgical History: PTCA Family History Family History: Reviewed,noncontributory to illness Social History Smoker: Non-Smoker Alcohol: Sober Drugs: Marijuana Lives In: Home EKG EKG : Pulse Rate (adult): 87 [place]: Normal Cardiac Rhythm: NSR Block: None Hypertrophy: None ST: Normal Was a procedure done? Was a procedure done?: No GI differential Dx Differential Diagnosis: Other (DDX include but not limited to diverticulitis, colitis, gastroenteritis, acute abdomen, SBO, enteritis, constipation, volvulus, appendicitis, Gallbladder disease, choledocolithiasis, ascending cholangitis, pancreatitis, intraAbdominal mass/neoplasm, hepatitis, UTI, pylonephritis, kidney stone, aneurysm, dissection, Inflammatory bowel disease, gastroparesis, ischemic bowel.) X-Ray, Labs, Meds, VS Vital Signs Date Time Temp Pulse Resp B/P (MAP) Pulse Ox O2 Delivery O2 Flow Rate FiO2 03/22/25 20:30 97.9 94 20 153/80 (104) 96 97.9 03/22/25 20:16 160/75 03/22/25 20:00 91 03/22/25 20:00 90 23 95 Room Air* 0 21 03/22/25 19:54 90 03/22/25 18:28 93 14 153/77 (102) 97 03/22/25 18:28 93 14 97 Room Air* 0 21 03/22/25 16:29 87 03/22/25 16:11 96.6 96 18 166/76 (106) 97 96.6 03/22/25 16:00 99 03/22/25 15:24 98.6 92 18 150/109 (123) 98 98.6 03/22/25 15:16 87 Lab Test 03/22/25 20:11 03/22/25 19:50 03/22/25 18:03 03/22/25 17:01 Range/Units Hemoglobin 17.6 H 17.8 H 13.5-17.5 g/dL Hematocrit 50.4 50.3 41.0-53.0 % Lactic Acid Level 2.8 *H 2.8 *H 0.4-2.0 mmol/L Troponin I High Sensitivity 8 6 9 </=54 ng/L White Blood Count 10.7 4.4-10.8 10^3/uL Red Blood Count 5.65 4.5-5.90 10^6/uL Mean Corpuscular Volume 89.0 80.0-100.0 fL Mean Corpuscular Hemoglobin 31.5 28.0-32.0 pg Mean Corpuscular Hemoglobin Concent 35.4 32.0-36.0 g/dL Red Cell Distribution Width 14.3 11.8-14.3 % Platelet Count 135 L 140-450 10^3/uL Mean Platelet Volume 9.9 6.9-10.8 fL Neutrophils (%) (Auto) 92.3 H 37.0-80.0 % Lymphocytes (%) (Auto) 5.5 L 10.0-50.0 % Monocytes (%) (Auto) 1.8 0.0-12.0 % Eosinophils (%) (Auto) 0.0 0.0-7.0 % Basophils (%) (Auto) 0.4 0.0-2.0 % Neutrophils # (Auto) 9.9 H 1.6-8.6 10 ^3/uL Lymphocytes # (Auto) 0.6 0.4-5.4 10 ^3/uL Monocytes # (Auto) 0.2 0-1.3 10 ^3/uL Eosinophils # (Auto) 0 0-0.8 10 ^3/uL Basophils # (Auto) 0 0-0.2 10 ^3/uL Nucleated Red Blood Cells 0.1 % Prothrombin Time 11.1 9.3-11.8 sec Prothrombin Time INR 1.05 0.9-1.15 Activated Partial Thromboplast Time 27.9 24.5-34.5 SEC Sodium Level 143 136-145 mmol/L Potassium Level 4.3 3.5-5.1 mmol/L Chloride Level 104 98-107 mmol/L Carbon Dioxide Level 19 L 20-31 mmol/L Anion Gap 20 H 5-15 Blood Urea Nitrogen 22 9-23 mg/dL Creatinine 1.03 0.700-1.30 mg/dL Glomerular Filtration Rate Calc 83 >90 mL/min BUN/Creatinine Ratio 21.4 H 10.0-20.0 Serum Glucose 211 H 74-106 mg/dL Hemoglobin A1c 8.2 H <5.7 % A1C Calcium Level 10.4 8.7-10.4 mg/dL Total Bilirubin 1.2 H 0.2-1.0 mg/dL Aspartate Amino Transferase (AST) 14 13-40 U/L Alanine Aminotransferase (ALT) 17 7-40 U/L Alkaline Phosphatase 92 46-116 U/L Total Protein 7.5 5.7-8.2 g/dL Albumin 4.7 3.2-4.8 g/dL Lipase 25 12-53 U/L Beta-Hydroxybutyric Acid > 4.500 H < 0.4 mmol/L [facility] [id number] [place] [address] Ph: [phone] DIAGNOSTIC IMAGING Diagnostic Imaging Report : [id number] Signed PATIENT: AMERICA HAINES ACCT: [id number] UNIT: [id number] : 1965 LOC: ER ROOM / BED: / AGE / SEX: 59 / M ADM STATUS: REG ER SERVICE [id number] ORDERING PHYSICIAN: ASA HERNANDEZ DO PROCEDURE(s): ABPL - CT AB PEL WO CON-NO ORAL OR IV REASON: n/v/ abd pain, GI bleed ORDER NUMBER(s): [id number], ACCESSION NUMBER(s): [id number] Exam: CT CT AB PEL WO CON-NO ORAL OR IV History: n/v/ abd pain, GI bleed Comparison Study: CT CT AB PEL WO CON-NO ORAL OR IV on DOS: 02/08/23, CT CT AB PEL WO CON-NO ORAL OR IV on DOS: 01/04/23, CT CT AB PEL WO CON-NO ORAL OR IV on DOS: 12/17/22 TECHNIQUE: Multidetector CT of the abdomen was performed from lung bases to pubic symphysis. Imaging was performed without IV contrast. Axial, coronal and sagittal multiplanar reformats were obtained from the axial data set by the technologist. Radiation Dose Information: CT Dose: CTDI volume is 22.43 mGy. Dose-length product is 1133.51 mGy*cm FINDINGS: Evaluation of solid organs is limited due to lack of intravenous contrast use. Findings: Lung Bases: No acute or significant lung base finding. Normal heart size. No pleural or pericardial effusion. Liver: The liver is normal in size. No focal lesions. Gallbladder and Biliary Tree: Cholelithiasis. Spleen: Unremarkable Pancreas: The pancreas is grossly normal in appearance. Adrenal Glands: Unremarkable Kidneys: Kidneys are grossly normal without calculi or hydronephrosis. Bladder: Grossly unremarkable for degree of distention. Bowel: The stomach is grossly normal in appearance. Small bowel and colon are normal in caliber and distribution. The appendix is not visualized; however, no secondary findings of acute appendicitis identified. Ascites: Absent Lymphadenopathy: No mesenteric, retroperitoneal or periportal lymphadenopathy. Abdominal Wall and Mesentery: Unremarkable. Vasculature: The visualized abdominal aorta is normal in size and caliber. Evaluation of abdominal and pelvic vessels is limited due to lack of intravenous contrast. Pelvic Organs: Unremarkable Musculoskeletal: No aggressive focal bony lesions, acute fractures or dislocation. Soft tissues: Unremarkable IMPRESSION: 1. Cholelithiasis 2. No findings of bowel obstruction. 3. No nephrolithiasis or hydronephrosis Radiation optimization: All CT scans at this facility use at least one of these dose optimization techniques: automated exposure control mA and/or kV adjustmen t per patient size (includes targeted exams where dose is matched to clinical indication) or iterative reconstruction. ATED BY: VADIM SOLARES Jr., DO DICTATED DATE/TIME: 03/22/251753 SIGNED BY: VADIM SOLARES Jr., SIGNED DATE/TIME: 03/22/251753 CC: Time of 1ST Reevaluation: 00:00 Reevaluation 1ST: Patient Education/Counseling: Diagnosis, Treatment Family Education/Counseling: No Family Present Comments Patient presented with the above HPI.---abdominal pain nausea and vomiting and hematemesis---workup was initiated. patient was found with the above mentioned diagnosis. the following medications were ordered: please refer to order lists of meds and tests obtained by myself Dr. Hernandez. Patient ED course and VS have been stabilized. Patient has been reassessed in the ED and remained in a stable condition. Pertinent incidental findings were discussed with the patient and/or family. Patient/family voices understanding and is agreeable with plan. Patient has been observed in the ED adequate length of time to insure improvement/stability. Escalation of care considered: Consideration of escalation to observation or admission Suspected GI bleed. Fluids and Protonix were initiated. Empiric antibiotic the also initiated Patient was ADMITTED to the medicine team for further evaluation and treatment of their presentation. All the reports of any imaging studies that were ordered by myself were reviewed by myself. Departure 1 Departure Time of Disposition: 16:15 Impression: Primary Impression: Abdominal pain Additional Impressions: GI bleed Thrombocytopenia Disposition: ADMITTED INPATIENT Admit to: Tele Condition: Guarded Discharged With: Self Critical Care Note Critical Care Time?: Yes (45 min-critical care time only) Heart Score Heart Score: Heart Score Response (Comments) Value History Slightly Suspicious 0 EKG Normal 0 Age 45-64 1 Risk Factors >3 or Hx ASHD 2 Troponin Normal limit 0 Total 3 I personally scribed for SAA HERNANDEZ DO ([email or web address]) on 03/22/25 at 16:12. Electronically submitted by Radha Strong ([email or web address]). I personally scribed for ASA HERNANDEZ DO ([email or web address]) on 03/22/25 at 16:29. Electronically submitted by Radha Strong ([email or web address]). I personally scribed for ASA HERNANDEZ DO ([email or web address]) on 03/22/25 at 22:21. Electronically submitted by Radha Strong ([email or web address]). ASA HERNANDEZ DO Mar 22, 2025 16:12
[2025-03-22] MEDS: METOCLOPRAMIDE HCL 5MG/ml INJ 2ml VIAL IV ONE (16:53)
[2025-03-22 17:10] LABS: Basophils # (auto) 0 10 ^3/uL (0-0.2); Eosinophils # (auto) 0 10 ^3/uL (0-0.8); Hemoglobin 17.8 g/dL (13.5-17.5); Mean Corpuscular Hgb Conc. 35.4 g/dL (32.0-36.0); Monocytes # (auto) 0.2 10 ^3/uL (0-1.3)
[2025-03-22 17:12] LABS: Basophils % (auto) 0.4 % (0.0-2.0); Hematocrit 50.3 % (41.0-53.0); Lymphocytes # (auto) 0.6 10 ^3/uL (0.4-5.4); Lymphocytes % (auto) 5.5 % (10.0-50.0); Mean Corpuscular Hemoglobin 31.5 pg (28.0-32.0); Monocytes % (auto) 1.8 % (0.0-12.0); Neutrophils # (auto) 9.9 10 ^3/uL (1.6-8.6); Neutrophils % (auto) 92.3 % (37.0-80.0); Nucleated Red Blood Cells % 0.1 %; Platelet Count (auto) 135 10^3/uL (140-450); Red Blood Cells 5.65 10^6/uL (4.5-5.90); Red Cell Distribution Width 14.3 % (11.8-14.3); White Blood Cell 10.7 10^3/uL (4.4-10.8)
[2025-03-22 17:24] LABS: INR 1.05 (0.9-1.15); Partial Thromboplastin Time 27.9 SEC (24.5-34.5); Prothrombin Time 11.1 sec (9.3-11.8)
[2025-03-22 17:27] LABS: Alanine Aminotransferase 17 U/L (7-40); Albumin 4.7 g/dL (3.2-4.8); Alkaline Phosphatase 92 U/L (46-116); Anion Gap 20 (5-15); Aspartate Aminotransferase 14 U/L (13-40); BUN/Creatinine Ratio 21.4 (10.0-20.0); Blood Urea Nitrogen 22 mg/dL (9-23); Calcium 10.4 mg/dL (8.7-10.4); Chloride 104 mmol/L (98-107); Potassium 4.3 mmol/L (3.5-5.1); Sodium 143 mmol/L (136-145); Total Protein 7.5 g/dL (5.7-8.2)
[2025-03-22 17:28] LABS: Bilirubin, Total 1.2 mg/dL (0.2-1.0)
[2025-03-22 17:35] LABS: Carbon Dioxide 19 mmol/L (20-31); Glucose 211 mg/dL (74-106)
[2025-03-22 17:36] LABS: Lactic Acid w/Reflex 2.8 mmol/L (0.4-2.0)
[2025-03-22 17:47] LABS: Lipase 25 U/L (12-53)
--- NOTE | 2025-03-22 17:56 | DVH ---
Exam: CT CT AB PEL WO CON-NO ORAL OR IV History: n/v/ abd pain, GI bleed Comparison Study: CT CT AB PEL WO CON-NO ORAL OR IV on DOS: 02/08/23, CT CT AB PEL WO CON-NO ORAL OR I V on DOS: 01/04/23, CT CT AB PEL WO CON-NO ORAL OR IV on DOS: 12/17/22 TECHNIQUE: Multidetector CT of the abdomen was performed from lung bases to pubic symphysis. Imaging was performed without IV contrast. Axial, coronal and sagittal multiplanar reformats were obtained fr om the axial data set by the technologist. Radiation Dose Information: CT Dose: CTDI volume is 22.43 mGy. Dose-length product is 1133.51 mGy*cm FINDINGS: Evaluation of solid organs is limited due to lack of intravenous contrast use. Findings: Lung Bases: No acute or significant lung base finding. Normal heart size. No pleural or pericardial effusion. Liver: The liver is normal in size. No focal lesions. Gallbladder and Biliary Tree: Cholelithiasis. Spleen: Unremarkable Pancreas: The pancreas is grossly normal in appearance. Adrenal Glands: Unremarkable Kidneys: Kidneys are grossly normal without calculi or hydronephrosis. Bladder: Grossly unremarkable for degree of distention. Bowel: The stomach is grossly normal in appearance. Small bowel and colon are normal in caliber and d istribution. The appendix is not visualized; however, no secondary findings of acute appendicitis id entified. Ascites: Absent Lymphadenopathy: No mesenteric, retroperitoneal or periportal lymphadenopathy. Abdominal Wall and Mesentery: Unremarkable. Vasculature: The visualized abdominal aorta is normal in size and caliber. Evaluation of abdominal a nd pelvic vessels is limited due to lack of intravenous contrast. Pelvic Organs: Unremarkable Musculoskeletal: No aggressive focal bony lesions, acute fractures or dislocation. Soft tissues: Unremarkable IMPRESSION: 1. Cholelithiasis 2. No findings of bowel obstruction. 3. No nephrolithiasis or hydronephrosis Radiation optimization: All CT scans at this facility use at least one of these dose optimization te chniques: automated exposure control mA and/or kV adjustment per patient size (includes targeted exa ms where dose is matched to clinical indication) or iterative reconstruction.
[2025-03-22 18:28] VITALS: PULSE 93; RESP 14; O2SAT 97
[2025-03-22 20:00] VITALS: PULSE 90; RESP 23; O2SAT 95
[2025-03-22] MEDS: fentaNYL CITRATE 100 MCG/2 ML VL IV ONE (20:16)
[2025-03-22 20:25] LABS: Hematocrit 50.4 % (41.0-53.0); Hemoglobin 17.6 g/dL (13.5-17.5)
[2025-03-22] MEDS ORDERED: DEXTROSE (50%) 50ML SYRG IV PRN ×2 (21:00→22:15)
[2025-03-22 21:13] LABS: Base Excess -9.3 mmol/L (-2.0-3.0)
[2025-03-22] MEDS: PIPERACILLIN-TAZOB 3.375GM 100 ML IV ONE (21:30)
[2025-03-22] MEDS: PANTOPRAZOLE 40 MG/10 ML VIAL INJ IV SCH (21:39)
[2025-03-22 21:48] LABS: Chloride 105 mmol/L (98-107); Potassium 4.3 mmol/L (3.5-5.1); Sodium 144 mmol/L (136-145)
[2025-03-22 21:49] LABS: Anion Gap 22 (5-15); Calcium 10.3 mg/dL (8.7-10.4)
[2025-03-22 21:53] LABS: Carbon Dioxide 17 mmol/L (20-31)
[2025-03-22 21:54] LABS: BUN/Creatinine Ratio 20.7 (10.0-20.0); Blood Urea Nitrogen 23 mg/dL (9-23)
[2025-03-22 21:56] LABS: Glucose 242 mg/dL (74-106)
[2025-03-22] MEDS ORDERED: PANTOPRAZOLE 40 MG/10 ML VIAL INJ IV SCH ×2 (22:00)
[2025-03-22] MEDS: SUCRALFATE 1 GM/10 ML ORAL SUSP PO SCH (22:07)
[2025-03-22 22:20] LABS: Urine Bacteria None Seen /hpf (None Seen); Urine Blood TRACE /uL (Negative); Urine Clarity Clear (Clear); Urine Color Light-Yellow (Yellow); Urine Mucus FEW (None Seen); Urine Protein, UAD TRACE (Negative); Urine Specific Gravity 1.028 (1.001-1.035); Urine Squamous Epithelial Cell None Seen /hpf (<5); Urine Urobilinogen Normal (Negative)
[2025-03-22 22:23] LABS: Amphetamine Screen, Urine Neg (NEGATIVE); Barbiturate Scree,Urine Neg (NEGATIVE); Benzodiazephine Screen, Urine Neg (NEGATIVE); Cannabinoid Screen, Urine Neg (NEGATIVE); Cocaine Screen, Urine Neg (NEGATIVE); Opiate Scree,Urine Neg (NEGATIVE); Phencyclidine Screen, Urine Neg (NEGATIVE)
[2025-03-22 22:32] LABS: Urine WBC < 1 /HPF (0-3)
[2025-03-22] MEDS: INSULIN LANTUS (GLARGINE) 1 /0.01ml (100units/ml) SC ONE (22:34)
[2025-03-22] MEDS: INSULIN DRIP 100 UNIT/100ML 100 ML IV SCH (22:39)
[2025-03-22] MEDS: D5W/SOD CHL 0.45% 1,000 ML IV SCH (23:00)
[2025-03-23] VITALS (17 sets, daily range): BP systolic 131–180; BP diastolic 63–97; PULSE 70–103; RESP 13–23; TEMP 98.2–98.6; O2SAT 80–100
[2025-03-23] MEDS ORDERED: InsuLIN REG 1unit/0.01ml Soln (100units/ml) SC SCH
[2025-03-23] MEDS: ACCU-CHEK COMFORT CURVE STRIP VI SCH ×2 (00:09)
[2025-03-23] MEDS: MORPHINE SULFATE 4 MG/ML SYR/VIAL ONE ×4 (01:01→19:19)
[2025-03-23] MEDS: ONDANSETRON HCL 4 MG/2 ML VIAL IV PRN (01:04)
[2025-03-23 01:33] LABS: Basophils # (auto) 0 10 ^3/uL (0-0.2); Basophils % (auto) 0.1 % (0.0-2.0); Eosinophils # (auto) 0 10 ^3/uL (0-0.8); Hematocrit 49.4 % (41.0-53.0); Lymphocytes # (auto) 0.6 10 ^3/uL (0.4-5.4); Lymphocytes % (auto) 4.8 % (10.0-50.0); Mean Corpuscular Hemoglobin 31.4 pg (28.0-32.0); Mean Corpuscular Hgb Conc. 34.4 g/dL (32.0-36.0); Mean Corpuscular Volume 91.3 fL (80.0-100.0); Monocytes # (auto) 0.3 10 ^3/uL (0-1.3); Monocytes % (auto) 2.2 % (0.0-12.0); Neutrophils % (auto) 92.9 % (37.0-80.0); Platelet Count (auto) 141 10^3/uL (140-450); Red Blood Cells 5.41 10^6/uL (4.5-5.90); Red Cell Distribution Width 14.1 % (11.8-14.3); White Blood Cell 11.9 10^3/uL (4.4-10.8)
--- NOTE | 2025-03-23 01:40 | ECG ---
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
[2025-03-23] MEDS: MORPHINE SULFATE INJ 2 MG/ml SYRG IV PRN (02:01)
--- NOTE | 2025-03-23 02:06 | DVHHPRES ---
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 Patient reported that today he started to have abdominal pain and associated vomiting which was coffee-ground in color, multiple episodes. Patient reported associated epigastric abdominal pain which was nonradiating, constant and severe in intensity. Patient has a history of upper GI bleed in April of 2024 when an EGD was done which showed hiatal hernia with a grade C linear erosive esophagitis with distal esophageal ulcers extending 10 cm above the GE junction and gastroduodenitis with multiple duodenal ulcers and gastric erosions thrombus biopsies were taken and patient was discharged on PPI and Carafate. He reported he did not have any episode of GI bleed and did not notice any melena since then. Patient denied smoking, alcohol but admitted to smoking marijuana about 2 to 3 times a week. Patient denies any history of chronic liver disease. He also reported dysphagia to food since the last 2-3 days. 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 and 15 units t.i.d. with meals, carvedilol 6.25 b.i.d., hydralazine 25 t.i.d., lisinopril/hydrochlorothiazide, amlodipine 10, gabapentin 800 t.i.d. Review of Systems Review of Systems Patient seen and examined at the bedside Reports of [id number] abdominal pain, was given pain medication by the ER physician Currently has emesis coffee-ground Allergies: Coded Allergies: NO KNOWN ALLERGIES (Unverified , 12/17/22) Medications Current Medications Medications Dose Ordered Sig/Chiara Route Start Time Stop Time Status Last Admin Dose Admin Dextrose 50 ml UD PRN IV 03/22/25 21:00 Ondansetron HCl 4 mg Q8HPRN PRN IV 03/22/25 21:00 03/23/25 01:04 4 MG Enalaprilat 1.25 mg Q6HP PRN IV 03/22/25 21:00 Pantoprazole Sodium 40 mg BID IV 03/22/25 22:00 03/22/25 21:39 40 MG Sucralfate 1 gm QID@0600,1130,1700,2200 PO 03/22/25 22:00 03/22/25 22:07 1 GM Insulin Human (Reg)/Sodium Chloride 100 ml @ 0.5 mls/hr Q24H IV 03/22/25 22:15 03/22/25 22:39 3 MLS/HR Dextrose 50 ml UD PRN IV 03/22/25 22:15 Insulin Glargine 15 units DAILY SC 03/23/25 10:00 Dextrose/Sodium Chloride 1,000 ml @ 150 mls/hr Q6H40M IV 03/22/25 22:15 03/22/25 23:00 150 MLS/HR Diagnostic Test (Pha) 1 strip Q90MIN 03/23/25 00:00 UNV Morphine Sulfate 2 mg Q4HPRN PRN IV 03/23/25 00:15 UNV Exam Vital Signs Vital Signs Date Time Temp Pulse Resp B/P (MAP) Pulse Ox O2 Delivery O2 Flow Rate FiO2 03/22/25 22:34 95 20 154/76 (102) 96 03/22/25 18:28 Room Air* 0 21 03/22/25 16:11 96.6 96.6 Exam Gen - no pallor, no icterus, no cyanosis, no clubbing, no LAD, no edema . Skin - Patients skin is warm and dry. HEENT - normocephalic, atraumatic, moist mucous membranes. Neck - full ROM, no LAD, no JVD Pulmonary - B/L equal breath sounds, no crackles, no wheezing, no stridor. cardiovascular - regular S1,S2 heard, no added sounds, no murmurs heard. GI - soft abdomen with tenderness to palpation in the epigastrium. no hepatospleenomegaly. Bowel sounds normoactive Neurological - Patient is A/O X 3. Bilateral upper extremity strength 5/5, bilateral lower extremity strength 5/5, no facial droop, normal speech, no tremor, no sensory deficiets. Labs/Xrays Labs Test 03/23/25 00:17 03/22/25 22:20 03/22/25 21:09 03/22/25 20:11 Range/Units POC Glucose 275 H 70-106 mg/dl Urine Color Light-yellow Yellow Urine Clarity Clear Clear Urine pH 5.0 5.0-9.0 Urine Specific [place] 1.028 1.001-1.035 Urine Protein Trace H Negative Urine Ketones 4+ H Negative Urine Blood Trace H Negative /uL Urine Nitrite Negative Negative Urine Bilirubin Negative Negative Urine Urobilinogen Normal Negative mg/dL Urine Leukocyte Esterase Negative Negative /uL Urine RBC 1 0 - 3 /hpf Urine Microscopic WBC < 1 0-3 /HPF Urine Squamous Epithelial Cells None seen <5 /hpf Urine Bacteria None seen None Seen /hpf Urine Mucus Few None Seen Urine Glucose 4+ H Normal mg/dL Urine Opiates Screen Neg NEGATIVE Urine Fentanyl Screen Pos NEGATIVE Urine Barbiturates Screen Neg NEGATIVE Urine Phencyclidine Screen Neg NEGATIVE Urine Amphetamines Screen Neg NEGATIVE Urine Benzodiazepines Screen Neg NEGATIVE Urine Cocaine Screen Neg NEGATIVE Urine Cannabinoids Screen Neg NEGATIVE Blood Gas Specimen Type Arterial Blood Gas Sample Site Right radial Blood Gas Patient Temperature 37.0 Arterial Blood Date Drawn [id number] Arterial Blood pH 7.316 L 7.350-7.450 Arterial Blood Partial Pressure CO2 30.6 L 35.0-48.0 mmHg Arterial Blood Partial Pressure O2 79.2 L 83.0-108.0 mmHg Arterial Blood HCO3 15.3 L 21.0-28.0 mmol/L Arterial Blood Oxygen Saturation 94.3 94.0-98.0 % Arterial Blood Base Excess -9.3 L -2.0-3.0 mmol/L Arterial Blood Oxyhemoglobin 91.8 L 94.0-98.0 % Arterial Blood Carboxyhemoglobin 2.0 H 0.5-1.5 % Arterial Blood Methemoglobin 0.6 0.0-1.5 % Aleks Test Modified Blood Gas Total Hemoglobin 17.00 13.5-17.5 g/dL Blood Gas Liter Flow 0.00 Blood Gas Modality Room air Blood Gas Spontaneous Rate 18 FiO2 % 21.0 Specimen Drawn By Iliana lennon rt Blood Gas Comments Room air abg Hemoglobin 17.6 H 13.5-17.5 g/dL Hematocrit 50.4 41.0-53.0 % Test 03/22/25 19:50 03/22/25 17:01 Range/Units Lactic Acid Level 2.8 *H 0.4-2.0 mmol/L Troponin I High Sensitivity 8 </=54 ng/L White Blood Count 10.7 4.4-10.8 10^3/uL Red Blood Count 5.65 4.5-5.90 10^6/uL Mean Corpuscular Volume 89.0 80.0-100.0 fL Mean Corpuscular Hemoglobin 31.5 28.0-32.0 pg Mean Corpuscular Hemoglobin Concent 35.4 32.0-36.0 g/dL Red Cell Distribution Width 14.3 11.8-14.3 % Platelet Count 135 L 140-450 10^3/uL Mean Platelet Volume 9.9 6.9-10.8 fL Neutrophils (%) (Auto) 92.3 H 37.0-80.0 % Lymphocytes (%) (Auto) 5.5 L 10.0-50.0 % Monocytes (%) (Auto) 1.8 0.0-12.0 % Eosinophils (%) (Auto) 0.0 0.0-7.0 % Basophils (%) (Auto) 0.4 0.0-2.0 % Neutrophils # (Auto) 9.9 H 1.6-8.6 10 ^3/uL Lymphocytes # (Auto) 0.6 0.4-5.4 10 ^3/uL Monocytes # (Auto) 0.2 0-1.3 10 ^3/uL Eosinophils # (Auto) 0 0-0.8 10 ^3/uL Basophils # (Auto) 0 0-0.2 10 ^3/uL Nucleated Red Blood Cells 0.1 % Prothrombin Time 11.1 9.3-11.8 sec Prothrombin Time INR 1.05 0.9-1.15 Activated Partial Thromboplast Time 27.9 24.5-34.5 SEC Hemoglobin A1c 8.2 H <5.7 % A1C Total Bilirubin 1.2 H 0.2-1.0 mg/dL Aspartate Amino Transferase (AST) 14 13-40 U/L Alanine Aminotransferase (ALT) 17 7-40 U/L Alkaline Phosphatase 92 46-116 U/L Total Protein 7.5 5.7-8.2 g/dL Albumin 4.7 3.2-4.8 g/dL Lipase 25 12-53 U/L Beta-Hydroxybutyric Acid > 4.500 H < 0.4 mmol/L Assessment/Plan Assessment/Plan Acute intractable abdominal pain Upper GI bleed likely from a bleeding ulcer H/O esophageal ulcers, duodenal ulcers, gastroduodenitis - previous EGD from April 2024 showed hiatal hernia with a erosive esophagitis and distal esophageal ulcers, duodenal ulcers, gastroduodenitis - NPO - Protonix 40 mg IV b.i.d. - Carafate q.i.d. - GI consulted - CT abdomen pelvis shows cholelithiasis, GB ultrasound pending - H&H stable currently Uncontrolled type 2 diabetes mellitus with hyperglycemia Diabetic ketoacidosis, [id number] ?Starvation ketosis - currently on insulin drip - ABG showed metabolic acidosis with respiratory compensation - IV fluids - BMP q.4 hours - keep potassium above 4 - blood sugars 150-200 until the resolution of DKA Hypertensive heart disease Uncontrolled hypertension - at home patient is taking amlodipine 10 mg, carvedilol 6.25 b.i.d., h ydralazine 25 t.i.d., lisinopril/HCTZ - has a patient is currently NPO, on enalapril 1.25 mg q.6 hours if SBP > 160 Goals of care discussed with the patient for over 27 minutes. Full code Time spent: 45 minutes Plan discussed with Dr. Carter Plan discussed with: Patient My Orders Orders - DIDIER BRADLEY RESIDENT Procedure Category Date Status Time Admit ADMIT 03/22/25 Transmitted 20:52 Stat Ekg For Chest [facility] 03/22/25 In Process Pain 20:52 Notify Of Changes [facility] 03/22/25 In Process From Base 20:52 Quilt Sewer For [facility] 03/22/25 In Process 24 Hours 20:52 Emergency Dysrhythmia [facility] 03/22/25 In Process Protocol 20:52 2 Large Bore Ivs [facility] 03/22/25 In Process (20mg Or Larg 20:52 Complete Blood Count LAB 03/23/25 In Process 00:00 Complete Blood Count LAB 03/23/25 Logged 04:00 Comprehensive LAB 03/23/25 Logged Metabolic Panel 04:00 Abg W/ Co-Ox RT 03/22/25 Logged 20:52 Npo (Nothing By DIET 03/23/25 Transmitted Mouth) Diet Breakfast Dextrose 50% Syringe PHA 03/22/25 In Process 21:00 Ondansetron Hcl PHA 03/22/25 In Process (Zofran) 21:00 * Gi Dvh Body Man CONS 03/22/25 Transmitted 20:52 Enalaprilat Injection PHA 03/22/25 In Process (Vasotec Injection 21:00 Stool Occult Blood LAB 03/22/25 Logged 20:52 Pantoprazole PHA 03/22/25 In Process (Protonix) 22:00 Sucralfate Susp PHA 03/22/25 In Process (Carafate Susp) 22:00 Insulin Drip Protocol [facility] 03/22/25 In Process Insulin Drip 100 PHA 03/22/25 In Process Unit/100ml (Myxredlin 22:15 Dextrose 50% Syringe PHA 03/22/25 In Process 22:15 Neurological [facility] 03/22/25 In Process Assessment 22:09 Vs/Hemodynamics SANDE[facility] 03/22/25 In Process 22:09 Insulin Lantus PHA 03/23/25 In Process (Glargine) (Lantus) 10:00 Transfer Orders XFER 03/22/25 Transmitted 22:09 D5w/Sod Chl 0.45% PHA 03/22/25 In Process (D5w 1/2ns) 22:15 Basic Metabolic Panel LAB 03/23/25 In Process 01:00 Glucose Blood PHA 03/23/25 Logged (Accu-Chek Comfort 00:00 Morphine Sulfate PHA 03/23/25 Logged Injection 00:15 Date of Service: Mar 22, 2025 Billing Provider: NOMI CARTER MD Common Visit Codes: [id number] INP/OBS CARE (HIGH) Secondary Visit Codes: [id number] CARE PLAN 30 MINUTES DIDIER BRADLEY RESIDENT Mar 23, 2025 02:06
[2025-03-23] MEDS: SOD CHL 0.45% 1,000 ML IV ONE (02:31)
[2025-03-23 02:45] LABS: Chloride 105 mmol/L (98-107); Potassium 4.4 mmol/L (3.5-5.1); Sodium 142 mmol/L (136-145)
[2025-03-23 02:46] LABS: Anion Gap 23 (5-15); Calcium 9.6 mg/dL (8.7-10.4)
[2025-03-23 02:51] LABS: BUN/Creatinine Ratio 18.8 (10.0-20.0); Blood Urea Nitrogen 21 mg/dL (9-23); Carbon Dioxide 14 mmol/L (20-31)
[2025-03-23 02:54] LABS: Glucose 274 mg/dL (74-106)
[2025-03-23] MEDS ORDERED: DEXTROSE (50%) 50ML SYRG IV PRN (03:15)
[2025-03-23] MEDS: INSULIN DRIP 100 UNIT/100ML 100 ML IV SCH (03:22)
[2025-03-23 05:39] LABS: Basophils # (auto) 0 10 ^3/uL (0-0.2); Basophils % (auto) 0.3 % (0.0-2.0); Eosinophils # (auto) 0 10 ^3/uL (0-0.8); Hematocrit 47.1 % (41.0-53.0); Hemoglobin 16.7 g/dL (13.5-17.5); Lymphocytes # (auto) 0.7 10 ^3/uL (0.4-5.4); Lymphocytes % (auto) 6.3 % (10.0-50.0); Mean Corpuscular Hgb Conc. 35.5 g/dL (32.0-36.0); Mean Corpuscular Volume 90.3 fL (80.0-100.0); Monocytes # (auto) 0.5 10 ^3/uL (0-1.3); Monocytes % (auto) 4.8 % (0.0-12.0); Neutrophils # (auto) 9.5 10 ^3/uL (1.6-8.6); Neutrophils % (auto) 88.6 % (37.0-80.0); Platelet Count (auto) 143 10^3/uL (140-450); Red Blood Cells 5.22 10^6/uL (4.5-5.90); Red Cell Distribution Width 14.3 % (11.8-14.3); White Blood Cell 10.7 10^3/uL (4.4-10.8)
[2025-03-23 06:00] LABS: Alanine Aminotransferase 13 U/L (7-40); Albumin 4.6 g/dL (3.2-4.8); Alkaline Phosphatase 83 U/L (46-116); Anion Gap 19 (5-15); BUN/Creatinine Ratio 19.4 (10.0-20.0); Potassium 3.9 mmol/L (3.5-5.1); Sodium 145 mmol/L (136-145); Total Protein 7.3 g/dL (5.7-8.2)
[2025-03-23 06:01] LABS: Bilirubin, Total 0.7 mg/dL (0.2-1.0)
[2025-03-23 06:03] LABS: Aspartate Aminotransferase 10 U/L (13-40); Blood Urea Nitrogen 24 mg/dL (9-23); Calcium 10.5 mg/dL (8.7-10.4); Carbon Dioxide 18 mmol/L (20-31); Chloride 108 mmol/L (98-107); Glucose 210 mg/dL (74-106)
[2025-03-23] MEDS: D5W/SOD CHL 0.45% 1,000 ML IV ONE (06:51)
--- NOTE | 2025-03-23 07:03 | DVH ---
EXAM: US Abdomen Limited, Gallbladder CLINICAL INDICATION: r/o cholecystitis TECHNIQUE: Real-time ultrasound of the right upper quadrant with image documentation. COMPARISON: GBNM on DOS: 11/08/22, GBUS on DOS: 10/15/22, GALLBLADDER on DOS: 10/15/22, ABDL on DOS: FINDINGS: LIVER: Liver measures up to 16.5 cm. Fatty infiltration of the liver. GALLBLADDER: Negative Wharton's sign was reported by the student services director. No gallstones. COMMON BILE DUCT: Unremarkable as visualized. No stones. No dilation. Common bile duct measures 0.58 cm in diameter. PANCREAS: Unremarkable as visualized. RIGHT KIDNEY: Right kidney measures up to 10.4 cm. 9 mm calculus in the inferior pole of the right kidney without obstruction. OTHER FINDINGS: . . IMPRESSION: Fatty infiltration of the liver. No convincing evidence of acute cholecystitis.
[2025-03-23] MEDS: POTASSIUM CHL 20MEQ/100ML 100 ML IV ONE ×2 (07:15→12:31)
[2025-03-23] MEDS: INSULIN LANTUS (GLARGINE) 1 /0.01ml (100units/ml) SC SCH (10:00)
[2025-03-23 10:16] LABS: Potassium 3.7 mmol/L (3.5-5.1)
[2025-03-23 10:17] LABS: Anion Gap 18 (5-15)
[2025-03-23 10:25] LABS: Carbon Dioxide 19 mmol/L (20-31); Chloride 109 mmol/L (98-107); Sodium 146 mmol/L (136-145)
[2025-03-23 10:26] LABS: Blood Urea Nitrogen 30 mg/dL (9-23); Calcium 10.9 mg/dL (8.7-10.4); Glucose 194 mg/dL (74-106)
--- NOTE | 2025-03-23 11:25 | DVH ---
CHEST RADIOGRAPH Indication: pulmonary infection Technique: Single frontal view of the chest was obtained Comparison: None FINDINGS: The cardiac silhouette is unremarkable. The lungs demonstrate no pulmonary airspace consolidation. Th e pulmonary vasculature is prominent. Aortic atherosclerotic disease. There is no pleural effusion.. There is no pneumothorax. IMPRESSION: 1. Pulmonary vascular congestion.
--- NOTE | 2025-03-23 13:01 | DVHINCON2 ---
GI Consult Consult Note GI consult note Date of Consultation: 03/23/2025 Chief Complaint: Coffee-ground emesis Referring Physician: H&P: 59-year-old male with past medical history of CAD, OR status post PCI, hypertension, diabetes presents to ER with complains of abdominal pain with vomiting Patient has had multiple episodes of coffee-ground emesis. Last episode at 9:30 a.m. this morning Also complaining of periumbilical area abdominal pain. No melena or red blood in stool Patient quit alcohol 20 years ago. Admits to being compliant with PPI Patient has had similar symptoms in past DATE OF OPERATION: 05/05/24 PROCEDURE: Upper Endoscopy with biopsy PREOPERATIVE INDICATION: The patient is a 58 -year-old male undergoing endoscopy for nausea vomiting coffee-ground emesis POSTOPERATIVE DIAGNOSES: 1. 2-3 cm sliding-type hiatal hernia with the acute grade C linear erosive esophagitis with distal esophageal ulcers extending into the 10 cm above the EG junction 2. Moderate gastroduodenitis with multiple duodenal ulcers and gastric erosions and mild pylorospasm 3. 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, peptic ulcers Past Surgical History: PCI with stents Social History: Quit alcohol 20 years ago, smoking tobacco but admits to smoking marijuana about 2 to 3 times a week Family History: Noncontributory Review of Systems: Constitutional: no fever, chill, weight loss HEENT: no eye pain, no hearing loss, no oral lesion, no scleral icterus Heart: no chest pain, no chest pressure Lung: no cough, no dyspnea with exertion Abdomen: see HPI Physical exam: General: NAD, AAOX3 Chest: lung gates clear to auscultation Heart: RRR, no murmur Abdomen: non-distended, mild epigastric tenderness to palpation, +BS Labs: Labs Test 03/23/25 11:57 03/23/25 09:39 03/23/25 05:04 03/22/25 22:20 Range/Units POC Glucose 192 H 70-106 mg/dl Sodium Level 146 H 136-145 mmol/L Potassium Level 3.7 3.5-5.1 mmol/L Chloride Level 109 H 98-107 mmol/L Carbon Dioxide Level 19 L 20-31 mmol/L Anion Gap 18 H 5-15 Blood Urea Nitrogen 30 H 9-23 mg/dL Creatinine 1.20 0.700-1.30 mg/dL Glomerular Filtration Rate Calc 69 >90 mL/min BUN/Creatinine Ratio 25.0 H 10.0-20.0 Serum Glucose 194 H 74-106 mg/dL Calcium Level 10.9 H 8.7-10.4 mg/dL White Blood Count 10.7 4.4-10.8 10^3/uL Red Blood Count 5.22 4.5-5.90 10^6/uL Hemoglobin 16.7 13.5-17.5 g/dL Hematocrit 47.1 41.0-53.0 % Mean Corpuscular Volume 90.3 80.0-100.0 fL Mean Corpuscular Hemoglobin 32.0 28.0-32.0 pg Mean Corpuscular Hemoglobin Concent 35.5 32.0-36.0 g/dL Red Cell Distribution Width 14.3 11.8-14.3 % Platelet Count 143 140-450 10^3/uL Mean Platelet Volume 9.7 6.9-10.8 fL Neutrophils (%) (Auto) 88.6 H 37.0-80.0 % Lymphocytes (%) (Auto) 6.3 L 10.0-50.0 % Monocytes (%) (Auto) 4.8 0.0-12.0 % Eosinophils (%) (Auto) 0.0 0.0-7.0 % Basophils (%) (Auto) 0.3 0.0-2.0 % Neutrophils # (Auto) 9.5 H 1.6-8.6 10 ^3/uL Lymphocytes # (Auto) 0.7 0.4-5.4 10 ^3/uL Monocytes # (Auto) 0.5 0-1.3 10 ^3/uL Eosinophils # (Auto) 0 0-0.8 10 ^3/uL Basophils # (Auto) 0 0-0.2 10 ^3/uL Nucleated Red Blood Cells 0.0 % Total Bilirubin 0.7 0.2-1.0 mg/dL Aspartate Amino Transferase (AST) 10 L 13-40 U/L Alanine Aminotransferase (ALT) 13 7-40 U/L Alkaline Phosphatase 83 46-116 U/L Total Protein 7.3 5.7-8.2 g/dL Albumin 4.6 3.2-4.8 g/dL Urine Color Light-yellow Yellow Urine Clarity Clear Clear Urine pH 5.0 5.0-9.0 Urine Specific [place] 1.028 1.001-1.035 Urine Protein Trace H Negative Urine Ketones 4+ H Negative Urine Blood Trace H Negative /uL Urine Nitrite Negative Negative Urine Bilirubin Negative Negative Urine Urobilinogen Normal Negative mg/dL Urine Leukocyte Esterase Negative Negative /uL Urine RBC 1 0 - 3 /hpf Urine Microscopic WBC < 1 0-3 /HPF Urine Squamous Epithelial Cells None seen <5 /hpf Urine Bacteria None seen None Seen /hpf Urine Mucus Few None Seen Urine Glucose 4+ H Normal mg/dL Urine Opiates Screen Neg NEGATIVE Urine Fentanyl Screen Pos NEGATIVE Urine Barbiturates Screen Neg NEGATIVE Urine Phencyclidine Screen Neg NEGATIVE Urine Amphetamines Screen Neg NEGATIVE Urine Benzodiazepines Screen Neg NEGATIVE Urine Cocaine Screen Neg NEGATIVE Urine Cannabinoids Screen Neg NEGATIVE Test 03/22/25 21:09 03/22/25 19:50 03/22/25 17:01 Range/Units Blood Gas Specimen Type Arterial Blood Gas Sample Site Right radial Blood Gas Patient Temperature 37.0 Arterial Blood Date Drawn [id number] Arterial Blood pH 7.316 L 7.350-7.450 Arterial Blood Partial Pressure CO2 30.6 L 35.0-48.0 mmHg Arterial Blood Partial Pressure O2 79.2 L 83.0-108.0 mmHg Arterial Blood HCO3 15.3 L 21.0-28.0 mmol/L Arterial Blood Oxygen Saturation 94.3 94.0-98.0 % Arterial Blood Base Excess -9.3 L -2.0-3.0 mmol/L Arterial Blood Oxyhemoglobin 91.8 L 94.0-98.0 % Arterial Blood Carboxyhemoglobin 2.0 H 0.5-1.5 % Arterial Blood Methemoglobin 0.6 0.0-1.5 % Aleks Test Modified Blood Gas Total Hemoglobin 17.00 13.5-17.5 g/dL Blood Gas Liter Flow 0.00 Blood Gas Modality Room air Blood Gas Spontaneous Rate 18 FiO2 % 21.0 Specimen Drawn By Iliana lennon rt Blood Gas Comments Room air abg Lactic Acid Level 2.8 *H 0.4-2.0 mmol/L Troponin I High Sensitivity 8 </=54 ng/L Prothrombin Time 11.1 9.3-11.8 sec Prothrombin Time INR 1.05 0.9-1.15 Activated Partial Thromboplast Time 27.9 24.5-34.5 SEC Hemoglobin A1c 8.2 H <5.7 % A1C Lipase 25 12-53 U/L Beta-Hydroxybutyric Acid > 4.500 H < 0.4 mmol/L Imaging: CT abdomen pelvis IMPRESSION: 1. Cholelithiasis 2. No findings of bowel obstruction. 3. No nephrolithiasis or hydronephrosis Abdominal ultrasound IMPRESSION: Fatty infiltration of the liver. No convincing evidence of acute cholecystitis. Assessment: GI bleed Abdominal pain History of esophageal ulcers, gastroduodenitis DKA Plan: Discussed with Dr. Linares Protonix b.i.d. Carafate q.i.d. Reglan Monitor labs If symptoms persist possible EGD to be considered in 1-2 days when patient is stable We will continue to follow patient Recommend outpatient colonoscopy for this patient For persistent GERD symptoms recommend outpatient follow-up for treatment with Voquenanoza Discussed plan with patient and RN Thank you for this consult Date of Service: Mar 23, 2025 Billing Provider: ANNMARIE WYATT Common Visit Codes: CONSULT ONLY Consultation Codes: [id number] CONSULT <60MIN ANNMARIE WYATT Mar 23, 2025 13:01
[2025-03-23 15:35] LABS: Potassium 3.9 mmol/L (3.5-5.1); Sodium 144 mmol/L (136-145)
[2025-03-23 15:36] LABS: Anion Gap 15 (5-15); Carbon Dioxide 21 mmol/L (20-31)
[2025-03-23 15:37] LABS: Calcium 9.8 mg/dL (8.7-10.4)
[2025-03-23 15:42] LABS: BUN/Creatinine Ratio 26.7 (10.0-20.0)
[2025-03-23 15:43] LABS: Blood Urea Nitrogen 28 mg/dL (9-23); Chloride 108 mmol/L (98-107); Glucose 237 mg/dL (74-106)
--- NOTE | 2025-03-23 16:16 | DVHPNRES ---
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 According to the patient, his symptoms started yesterday morning. Vomitus was mainly ground emesis associated with generalized abdominal pains. Patient mentioned that he had ED last year in march-April 2024. The report of that EGD showed showed hiatal hernia with a grade C linear erosive esophagitis with distal esophageal ulcers extending 10 cm above the GE junction and gastroduodenitis with multiple duodenal ulcers and gastric erosions thrombus biopsies were taken and patient was discharged on PPI and Carafate. He denied any recent excessive alcohol use or starvations. Initial vitals were unremarkable. Initial lab work revealed ghb : 17, normal wbc, plt: wnl. cmp showed blood glucose of 259, A1C: 8..2, Anion gap of 20, lactic acidosis ( lactic 2.8). UA was unremarkable chest x-ray revealed Pulmonary vascular congestion. Subjective Review of Systems Constitutional: Denies fever no chills no feeling of malaise HEENT: Denies headache, ear pain, ear discharges, conjunctivitis, nasal discharge throat pain Cardiovascular: Denies chest pain, palpitation, orthopnea, PND, or pedal edema Respiratory: Denies shortness of breath, cough, sputum production, hemoptysis, GI: abdominal pain, nausea, vomiting, diarrhea, hematemesis, hematochezia, : Denies frequency, urgency, hematuria, Endocrine: Denies unintentional weight gain or weight loss, feeling of hot flashes, Sinan: Denies easy bruising, bleeding disorders, epistaxis Musculoskeletal: Denies joint pains, muscle aches Psych: No evidence of depression, ashleigh, suicidal ideation Patient reports: No new complaints Objective vital signs Vital Sign Date Time Temp Pulse Resp B/P (MAP) Pulse Ox O2 Delivery O2 Flow Rate FiO2 03/23/25 12:00 88 03/23/25 11:43 20 155/74 03/23/25 10:00 80 03/23/25 09:00 98.5 98.5 03/22/25 20:00 Room Air* 0 21 Total Intake and Output 03/22/25 03/22/25 03/23/25 15:00 23:00 07:00 Intake Total 1000 ml 961.5 ml Balance 1000 ml 961.5 ml medications Current Medications Medications Dose Ordered Sig/Chiara Route Start Time Stop Time Status Last Admin Dose Admin Dextrose 50 ml UD PRN IV 03/22/25 21:00 Enalaprilat 1.25 mg Q6HP PRN IV 03/22/25 21:00 Pantoprazole Sodium 40 mg BID IV 03/22/25 22:00 03/23/25 11:10 40 MG Sucralfate 1 gm QID@0600,1130,1700,2200 PO 03/22/25 22:00 03/23/25 11:11 1 GM Dextrose 50 ml UD PRN IV 03/22/25 22:15 Insulin Glargine 15 units DAILY SC 03/23/25 10:00 Diagnostic Test (Pha) 1 strip Q90MIN 03/23/25 00:00 03/23/25 13:23 1 STRIP Morphine Sulfate 2 mg Q4HPRN PRN IV 03/23/25 00:15 03/23/25 11:13 2 MG Dextrose 50 ml UD PRN IV 03/23/25 03:15 Insulin Human (Reg)/Sodium Chloride 100 ml @ 0.5 mls/hr Q24H IV 03/23/25 03:15 03/23/25 03:22 5 MLS/HR Metoclopramide HCl 5 mg Q6HR IV 03/23/25 18:00 Examination General Appearance: Alert, Oriented X3, Cooperative, acute distress HEENT: Atraumatic, PERRLA, EOMI, Mucous membrane moist/pink Respiratory: Clear to auscultation, Normal air movement Cardiovascular: Regular rate, Normal S1, Normal S2, No murmurs, no chest wall tenderness Abdominal: NO distention, no tenderness, bowel sounds present, no scars noted; Rectal examination: no black tarry stool Extremities: No clubbing, No cyanosis, No edema, Normal pulses, No tenderness/swelling Skin: Dry skin, scabs, No rashes, No breakdown, No significant lesion Neuro: Normal gait, Normal speech, Strength at 5/5 X4 ext, Normal tone, Sensation intact, Cranial nerves 3-12 NL, Reflexes 2+ Psych/Mental Status: Mental status NL, Mood NL laboratory and microbiology Laboratory Tests 03/23/25 05:04 Test 03/23/25 15:13 Range/Units Serum Glucose Pending Problem List/Assessment/Plan Problem List/Assessment/Plan Assessment Neuro: Alert and oriented Cardiovascular:Hypertensive heart disease Hypertensive urgency History [place] S/P PCI - Home medications: amlodipine 10 mg, carvedilol 6.25 b.i.d., hydralazine 25 t.i.d., lisinopril/HCTZ - Currently NPO, on enalapril 1.25 mg q.6 hours if SBP > 160 Respiratory: Pulmonary Edema Acute respiratory failure Metabolic acidosis with respiratory compensation - Lasix 20 mg once - Oxygen 2L via NC Gastrointestinal: Upper GI bleed likely from a bleeding ulcer H/O esophageal ulcers, duodenal ulcers, gastroduodenitis Fatty infiltration of the liver. Cholelithiasis, No findings of bowel obstruction. - previous EGD from April 2024 showed hiatal hernia with a erosive esophagitis and distal esophageal ulcers, duodenal ulcers, gastroduodenitis - NPO - Protonix 40 mg IV b.i.d. - Carafate q.i.d. - GI following - CT abdomen pelvis shows cholelithiasis, GB ultrasound pending - H&H stable currently : Ketonuria Glucosuria Endocrine: Diabetic ketoacidosis, [id number] Insulin dependent diabetes , 1994 ?Starvation ketosis - ABG showed metabolic acidosis with respiratory compensation - 1/2 NS in D5W - BMP q.4 hours - keep potassium above 4 - blood sugars 150-200 until the resolution of DKA - Continue fluid until anion gap closes, then start lantus Metabolic: Obesity grade II , BMI 35.2 Hypernatremia Hyperchloremia Infection Disease: Leukocytosis, no source identified yet Skin: Scattered scabs on his lower extremities, dry No open wounds IV access: Peripheeral line Drip: insulin Advance care discussed with patient Critical care time 45 minutes Case and plan discussed with Dr. Washington Plan discussed with: Patient My Orders My Orders Orders - LUIZ ISAACS RESIDENT Procedure Category Date Status Time Chest Xray 1 View XY 03/23/25 Resulted 10:35 Npo Except Ice Chips SANDEE 03/23/25 In Process 11:02 LUIZ ISAACS RESIDENT Mar 23, 2025 16:16
[2025-03-23] MEDS: FUROSEMIDE 20 MG/2 ML VIAL IV ONE (16:39)
[2025-03-23] MEDS: METOCLOPRAMIDE HCL 5MG/ml INJ 2ml VIAL IV SCH (18:06)
[2025-03-23] MEDS: ENALAPRILAT 1.25 MG/ML-1ML VIAL IV PRN (19:13)
[2025-03-23 21:18] LABS: Chloride 106 mmol/L (98-107); Sodium 143 mmol/L (136-145)
[2025-03-23 21:19] LABS: Anion Gap 14 (5-15); Calcium 10.1 mg/dL (8.7-10.4); Carbon Dioxide 23 mmol/L (20-31)
[2025-03-23 21:25] LABS: Blood Urea Nitrogen 25 mg/dL (9-23); Glucose 218 mg/dL (74-106); Potassium 3.4 mmol/L (3.5-5.1)
[2025-03-23] MEDS ORDERED: POTASSIUM CHLORIDE 40 MEQ, LIDOCAINE 1% (LOCAL ANESTH.) 4 ML in SODIUM CHL 0.9% 250 ML IV ONE (23:45)
[2025-03-24] VITALS (18 sets, daily range): BP systolic 110–169; BP diastolic 57–86; PULSE 62–79; RESP 12–18; TEMP 97.3–98.6; O2SAT 92–100
[2025-03-24] MEDS ORDERED: INSULIN LANTUS (GLARGINE) 1 /0.01ml (100units/ml) SC ONE
[2025-03-24] MEDS: MORPHINE SULFATE 4 MG/ML SYR/VIAL ONE ×4 (00:34→11:40)
[2025-03-24 00:54] LABS: Chloride 107 mmol/L (98-107); Sodium 143 mmol/L (136-145)
[2025-03-24 00:55] LABS: Anion Gap 10 (5-15); Carbon Dioxide 26 mmol/L (20-31)
[2025-03-24 00:57] LABS: Calcium 9.4 mg/dL (8.7-10.4); Potassium 3.4 mmol/L (3.5-5.1)
[2025-03-24 01:00] LABS: BUN/Creatinine Ratio 24.2 (10.0-20.0)
[2025-03-24 01:02] LABS: Magnesium 2.2 mg/dL (1.6-2.6)
[2025-03-24 01:07] LABS: Blood Urea Nitrogen 24 mg/dL (9-23); Glucose 176 mg/dL (74-106)
[2025-03-24] MEDS: INSULIN LANTUS (GLARGINE) 1 /0.01ml (100units/ml) SC ONE ×2 (01:15→03:58)
[2025-03-24] MEDS: POTASSIUM CHL 20MEQ/100ML 100 ML IV SCH (02:59)
[2025-03-24] MEDS ORDERED: DEXTROSE (50%) 50ML SYRG IV PRN (06:30)
[2025-03-24] MEDS: InsuLIN REG 1unit/0.01ml Soln (100units/ml) SC SCH (08:17)
[2025-03-24] MEDS: ACCU-CHEK COMFORT CURVE STRIP VI SCH (08:18)
[2025-03-24 09:21] LABS: Basophils # (auto) 0 10 ^3/uL (0-0.2); Basophils % (auto) 0.5 % (0.0-2.0); Eosinophils # (auto) 0 10 ^3/uL (0-0.8); Eosinophils % (auto) 0.2 % (0.0-7.0); Hematocrit 44.3 % (41.0-53.0); Hemoglobin 15.7 g/dL (13.5-17.5); Lymphocytes # (auto) 1.3 10 ^3/uL (0.4-5.4); Lymphocytes % (auto) 13.5 % (10.0-50.0); Mean Corpuscular Hemoglobin 32.1 pg (28.0-32.0); Mean Corpuscular Hgb Conc. 35.6 g/dL (32.0-36.0); Mean Corpuscular Volume 90.3 fL (80.0-100.0); Monocytes # (auto) 0.7 10 ^3/uL (0-1.3); Monocytes % (auto) 7.4 % (0.0-12.0); Neutrophils # (auto) 7.5 10 ^3/uL (1.6-8.6); Neutrophils % (auto) 78.4 % (37.0-80.0); Platelet Count (auto) 138 10^3/uL (140-450); Red Cell Distribution Width 14.1 % (11.8-14.3); White Blood Cell 9.6 10^3/uL (4.4-10.8)
[2025-03-24 11:03] LABS: Anion Gap 12 (5-15); Carbon Dioxide 21 mmol/L (20-31); Chloride 106 mmol/L (98-107); Potassium 4.2 mmol/L (3.5-5.1); Sodium 139 mmol/L (136-145)
[2025-03-24 11:04] LABS: Calcium 9.4 mg/dL (8.7-10.4)
[2025-03-24 11:09] LABS: BUN/Creatinine Ratio 25.3 (10.0-20.0); Blood Urea Nitrogen 21 mg/dL (9-23)
[2025-03-24 11:15] LABS: Amylase 24 U/L (30-118); Glucose 274 mg/dL (74-106); Phosphorus 2.3 mg/dL (2.4-5.1)
[2025-03-24 15:57] LABS: Triglycerides 129 mg/dL (< 150)
[2025-03-24 15:58] LABS: LDL Cholesterol 67 mg/dL (< 100)
[2025-03-24 15:59] LABS: Cholesterol 130 mg/dL (< 200)
[2025-03-24 16:01] LABS: HDL Cholesterol 36 mg/dL (40-59)
[2025-03-24] MEDS: MORPHINE SULFATE 4 MG/ML SYR/VIAL IV PRN (16:15)
[2025-03-24] MEDS: NEUTRA-PHOS TABLET PO ONE (18:35)
--- NOTE | 2025-03-24 18:47 | DVHPNRES ---
Progress Note Date Seen: Mar 24, 2025 Resident Creating Document: LUIZ ISAACS RESIDENT Has the PT tested + for MRSA If YES, has PT been informed?: No Medical Necessity Reason Pt with a Central, PICC or Fol: No Medical Necessity Reason Patient is seen and examined today in the ED. he is doing well anion gap is closed into (10). Blood sugar this morning was at 183 hgb A1c 8.2. Patient is no longer vomiting he has abdominal pain in the navel region. However, he has been unable to tolerate oral intake. Patient is also started on Lantus 50 units at night plus moderate sliding scale we will monitor the patient over today and probably discharge him home tomorrow. Subjective Review of Systems Constitutional: Denies fever no chills no feeling of malaise HEENT: Denies headache, ear pain, ear discharges, conjunctivitis, nasal discharge throat pain Cardiovascular: Denies chest pain, palpitation, orthopnea, PND, or pedal edema Respiratory: Denies shortness of breath, cough cough, sputum production, hemoptysis, GI: abdominal pain, Denies nausea, vomiting, diarrhea, hematemesis, hematochezia, : Denies frequency, urgency, hematuria, Endocrine: Denies unintentional weight gain or weight loss, feeling of hot flashes, Sinan: Denies easy bruising, bleeding disorders, epistaxis Musculoskeletal: Denies joint pains, muscle aches Psych: No evidence of depression, ashleigh, suicidal ideation Objective vital signs Vital Sign Date Time Temp Pulse Resp B/P (MAP) Pulse Ox O2 Delivery O2 Flow Rate FiO2 03/24/25 17:00 97.5 97.5 03/24/25 16:48 64 18 141/84 03/24/25 14:35 98 03/24/25 07:47 Room Air* 0 21 Total Intake and Output 03/23/25 03/23/25 03/24/25 15:00 23:00 07:00 Intake Total 781.0 ml 615 ml Output Total 600 ml 1500 ml Balance 181.0 ml -885 ml medications Current Medications Medications Dose Ordered Sig/Chiara Route Start Time Stop Time Status Last Admin Dose Admin Enalaprilat 1.25 mg Q6HP PRN IV 03/22/25 21:00 03/23/25 19:13 1.25 MG Pantoprazole Sodium 40 mg BID IV 03/22/25 22:00 03/24/25 08:18 40 MG Sucralfate 1 gm QID@0600,1130,1700,2200 PO 03/22/25 22:00 03/24/25 16:23 1 GM Metoclopramide HCl 5 mg Q6HR IV 03/23/25 18:00 03/24/25 18:08 5 MG Diagnostic Test (Pha) 1 strip IQ4HR 03/24/25 08:00 03/24/25 16:19 1 STRIP Insulin Human Regular IQ4HR SC 03/24/25 08:00 03/24/25 16:23 3 UNITS Dextrose 50 ml UD PRN IV 03/24/25 06:30 Insulin Glargine 50 units HS SC 03/24/25 22:00 Morphine Sulfate 2 mg Q4HPRN PRN IV 03/24/25 16:00 03/24/25 16:15 2 MG Examination General Appearance: Alert, Oriented X3, Cooperative, No acute distress HEENT: Atraumatic, PERRLA, EOMI, Mucous membrane moist/pink Respiratory: Clear to auscultation, Normal air movement Cardiovascular: Regular rate, Normal S1, Normal S2, No murmurs, no chest wall tenderness Abdominal: NO distention, no tenderness, bowel sounds present, no scars noted Extremities: No clubbing, No cyanosis, No edema, Normal pulses, No tenderness/swelling Skin: No rashes, No breakdown, No significant lesion Neuro: Normal gait, Normal speech, Strength at 5/5 X4 ext, Normal tone, Sensation intact, Cranial nerves 3-12 NL, Reflexes 2+ Psych/Mental Status: Mental status NL, Mood NL laboratory and microbiology Laboratory Tests 03/24/25 09:07 Test 03/24/25 09:07 Range/Units Serum Glucose 274 H 74-106 mg/dL Problem List/Assessment/Plan Problem List/Assessment/Plan Assessment Neuro: Alert and oriented Cardiovascular:Hypertensive heart disease Hypertensive urgency History [place] S/P PCI - Home medications: amlodipine 10 mg, carvedilol 6.25 b.i.d., hydralazine 25 t.i.d., lisinopril/HCTZ - Currently NPO, on enalapril 1.25 mg q.6 hours if SBP > 160 Respiratory: Pulmonary Edema Acute respiratory failure Metabolic acidosis with respiratory compensation - Lasix 20 mg once - Oxygen 2L via NC off Gastrointestinal: Upper GI bleed likely from a bleeding ulcer H/O esophageal ulcers, duodenal ulcers, gastroduodenitis Fatty infiltration of the liver. Cholelithiasis, No findings of bowel obstruction. - previous EGD from April 2024 showed hiatal hernia with a erosive esophagitis and distal esophageal ulcers, duodenal ulcers, gastroduodenitis - NPO - Protonix 40 mg IV b.i.d. - Carafate q.i.d. - GI following - CT abdomen pelvis shows cholelithiasis, GB ultrasound pending - H&H stable currently : Ketonuria Glucosuria Endocrine: Diabetic ketoacidosis, [id number] ?Starvation ketosis Insulin dependent diabetes diagnosed 1994 - ABG showed metabolic acidosis with respiratory compensation - 1/2 NS in D5W - keep potassium above 4 - blood sugars 150-200 until the resolution of DKA - Lantus 50 unit HS - Moderate sliding scale Metabolic: Obesity grade II , BMI 35.2 Hypernatremia Hyperchloremia Infection Disease: Leukocytosis, no source identified yet Skin: Scattered scabs on his lower extremities, dry No open wounds IV access: Peripheeral line: disconntinued Drip: insulin; Discontinued Disposition: DONTAE status --> to Telemetry Plan: to discharge tomorrow Advance care discussed with patient Critical care time 45 minutes Case and plan discussed with Dr. Washington Plan discussed with: Patient My Orders My Orders Orders - LUIZ ISAACS Procedure Category Date Status Time Transfer Orders XFER 03/24/25 Transmitted 09:50 Pota Phos & Sod Phos PHA 03/24/25 Logged Tablet (Neutra-Phos 18:30 Date of Service: Mar 24, 2025 Billing Provider: ESSENCE WASHINGTON MD Common Visit Codes: NOT BILLABLE LUIZ ISAACS Mar 24, 2025 18:47 ESSENCE WASHINGTON MD Mar 26, 2025 14:46
[2025-03-24] MEDS: INSULIN LANTUS (GLARGINE) 1 /0.01ml (100units/ml) SC SCH (21:32)
--- NOTE | 2025-03-24 21:55 | DVHPN2 ---
Progress Note - Dictate Date Seen: Mar 24, 2025 Has the PT tested + for MRSA If YES, has PT been informed?: No Medical Necessity Reason Pt with a Central, PICC or Fol: No Subjective No new complaints, patient is feeling better Patient stated he has been maintaining himself on his Protonix and Carafate He quit drinking alcohol 20 years ago vital signs Vital Sign Date Time Temp Pulse Resp B/P (MAP) Pulse Ox O2 Delivery O2 Flow Rate FiO2 03/24/25 21:00 98.6 69 18 125/68 (87) 97 98.6 03/24/25 07:47 Room Air* 0 21 Total Intake and Output 03/23/25 03/23/25 03/24/25 15:00 23:00 07:00 Intake Total 781.0 ml 615 ml Output Total 600 ml 1500 ml Balance 181.0 ml -885 ml medications Current Medications Medications Dose Ordered Sig/Chiara Route Start Time Stop Time Status Last Admin Dose Admin Enalaprilat 1.25 mg Q6HP PRN IV 03/22/25 21:00 03/23/25 19:13 1.25 MG Pantoprazole Sodium 40 mg BID IV 03/22/25 22:00 03/24/25 21:25 40 MG Sucralfate 1 gm QID@0600,1130,1700,2200 PO 03/22/25 22:00 03/24/25 21:25 1 GM Metoclopramide HCl 5 mg Q6HR IV 03/23/25 18:00 03/24/25 18:08 5 MG Diagnostic Test (Pha) 1 strip IQ4HR 03/24/25 08:00 03/24/25 19:47 1 STRIP Insulin Human Regular IQ4HR SC 03/24/25 08:00 03/24/25 19:54 9 UNITS Dextrose 50 ml UD PRN IV 03/24/25 06:30 Insulin Glargine 50 units HS SC 03/24/25 22:00 03/24/25 21:32 50 UNITS Morphine Sulfate 2 mg Q4HPRN PRN IV 03/24/25 16:00 03/24/25 20:44 2 MG objective General: NAD, AAOX3 Chest: lung gates clear to auscultation Heart: RRR, no murmur Abdomen: non-distended, mild epigastric tenderness to palpation, +BS laboratory and microbiology Laboratory Tests 03/24/25 09:07 Test 03/24/25 09:07 Range/Units Serum Glucose 274 H 74-106 mg/dL Problems(with codes): (1) Coffee ground emesis (2) N&V (nausea and vomiting) (3) Abdominal pain Prognosis Plan Patient is agreeable and would like to get an endoscopy tomorrow morning to re- evaluate his upper GI tract Pending results of the above his diet will be advanced and discharge planning initiated Patient was advised to follow up in my office as an outpatient so I can try him possibly on Voquenza patient also has been advised an outpatient elective colonoscopy for colon cancer screening through my office Plan discussed with: Patient, Other (Nurse) SHIRLENE GARCIA MD Mar 24, 2025 21:55
[2025-03-25 01:00] VITALS: BP 123/70; PULSE 63; RESP 17; TEMP 98.3; O2SAT 95
[2025-03-25 05:00] VITALS: BP 132/70; PULSE 58; RESP 17; TEMP 97.8; O2SAT 98
[2025-03-25 05:58] LABS: Chloride 106 mmol/L (98-107); Potassium 3.7 mmol/L (3.5-5.1); Sodium 144 mmol/L (136-145)
[2025-03-25 05:59] LABS: Anion Gap 9 (5-15); Calcium 9.7 mg/dL (8.7-10.4); Carbon Dioxide 29 mmol/L (20-31)
[2025-03-25 06:04] LABS: BUN/Creatinine Ratio 23.3 (10.0-20.0); Blood Urea Nitrogen 21 mg/dL (9-23); Glucose 106 mg/dL (74-106)
[2025-03-25 09:14] VITALS: BP 148/85; PULSE 59; RESP 18; TEMP 97.4; O2SAT 97
[2025-03-25] MEDS: CARVEDILOL 12.5 MG TAB PO SCH (09:49)
[2025-03-25] MEDS: ASPirin-EC 81 mg tab PO SCH (09:50)
[2025-03-25] MEDS: CLOPIDOGREL BISULFATE 75 MG TAB PO SCH (09:50)
[2025-03-25] MEDS: PANTOPRAZOLE 40 MG TAB PO SCH (09:51)
[2025-03-25] MEDS ORDERED: traMADol HCL 50 MG TAB PO SCH (10:00)
[2025-03-25] MEDS ORDERED: PROPOFOL 10 MG/ML 20 ML IV ONE (10:23)
[2025-03-25] MEDS ORDERED: LIDOCAINE 2% (LOCAL ANESTH.) PF 5ml SDV ONE (10:24)
[2025-03-25 10:41] VITALS: PULSE 64; RESP 21; O2SAT 100
--- NOTE | 2025-03-25 11:17 | DVHOP2 ---
Operative Report DATE OF OPERATION: 03/25/25 PROCEDURE: Upper Endoscopy with biopsy. PREOPERATIVE INDICATION: The patient is a 59 -year-old male undergoing endoscopy for chronic GERD and coffee-ground emesis POSTOPERATIVE DIAGNOSES: 1. 3 cm sliding-type hiatal hernia with grade a erosive esophagitis, significantly improved from previous endoscopy 2. Mild antral gastritis with pre-pyloric antral gastric erosions otherwise normal examination up to the 2nd and 3rd part of the duodenum with no fresh or old blood in the stomach PROCEDURE PERFORMED BY: Shirlene Linares GI NURSE: Clari SCOPE: Olympus videoendoscope. ASA CLASS: 2 PREOPERATIVE MEDICATIONS: Mac sedation, Christopher Henry PROCEDURE IN DETAIL: After obtaining an informed consent, the patient was placed on left lateral decubitus position. The patient was then sedated with the above medications. A bite block was placed between his teeth. The endoscope was then passed through the oropharynx, into the esophagus, and through the stomach and pylorus up to the second and third part of the duodenum. The endoscope was then withdrawn. Second and 3rd part of the duodenum and the duodenal bulb were normal. Duodenal biopsies were obtained. The pre-pyloric area antrum and body showed mild gastritis with hyperemia erythema and superficial erosions On retroflexion the fundus cardia and angularis were normal. There was no fresh or old blood in the GI tract. The endoscope was then withdrawn into the distal esophagus where he had a 3-4 cm sliding-type hiatal hernia with grade a erosive esophagitis GE junction biopsies were obtained. The remaining distal proximal esophagus were normal. The endoscopic appearance was improved from previous or last endoscopy The patient tolerated the procedure well without difficulty. COMPLICATIONS : None SPECIMENS: Duodenal Biopsies Gastric biopsies GE junction biopsies DISPOSITION: Transfer back to the floor Stable PLAN: 1. Await for biopsy result 2. Continue Protonix 40 mg p.o. twice a day 3. Carafate 1 g p.o. twice a day 4. Resume soft mechanical diet advance as tolerated 5. Outpatient follow up with me in 4-6 weeks to review results and discuss elective colonoscopy, patient is cleared for discharge from GI point of view SHIRLENE LINARES MD Mar 25, 2025 11:17
[2025-03-25] MEDS: amLODIPine BESYLATE 5 MG TAB PO SCH (11:43)
[2025-03-25] MEDS ORDERED: SUCRALFATE 1 GM/10 ML ORAL SUSP PO SCH (12:00)
[2025-03-25 13:00] VITALS: BP 167/89; PULSE 64; RESP 18; TEMP 98.6; O2SAT 96
--- NOTE | 2025-03-25 15:13 | DVHDSRES ---
Discharge Summary Date of Admission Resident Creating Document: LUIZ ISAACS Mar 22, 2025 at 20:52 Date of Discharge: Mar 25, 2025 Admitting Diagnosis intractable nausea and vomiting Labs/Diagnostic Data: PATIENT: AMERICA HAINES ACCT: [id number] UNIT: [id number] : 1965 LOC: OVERFLOW ROOM / BED: [address] [place] [address] AGE / SEX: 59 / M ADM STATUS: ADM IN SERVICE 1035 ORDERING PHYSICIAN: LUIZ ISAACS PROCEDURE(s): CXR1 - CHEST XRAY 1 VIEW REASON: pulmonary infection ORDER NUMBER(s): [id number], ACCESSION NUMBER(s): [id number] CHEST RADIOGRAPH Indication: pulmonary infection Technique: Single frontal view of the chest was obtained Comparison: None FINDINGS: The cardiac silhouette is unremarkable. The lungs demonstrate no pulmonary airspace consolidation. The pulmonary vasculature is prominent. Aortic atherosclerotic disease. There is no pleural effusion.. There is no pneumothorax. IMPRESSION: 1. Pulmonary vascular congestion. ATED BY: OLAYINKA CAMPOS MD DICTATED DATE/TIME: 03/23/25 1123 PATIENT: AMERICA HAINES ACCT: [id number] UNIT: [id number] : 1965 LOC: OVERFLOW ROOM / BED: [address] [place] [address] AGE / SEX: 59 / M ADM STATUS: ADM IN SERVICE 0216 ORDERING PHYSICIAN: DIDIER BRADLEY PROCEDURE(s): GBUS - GALLBLADDER REASON: r/o cholecystitis ORDER NUMBER(s): [id number], ACCESSION NUMBER(s): [id number] EXAM: US Abdomen Limited, Gallbladder CLINICAL INDICATION: r/o cholecystitis TECHNIQUE: Real-time ultrasound of the right upper quadrant with image documentation. COMPARISON: GBNM on DOS: 11/08/22, GBUS on DOS: 10/15/22, GALLBLADDER on DOS: 10/15/22, ABDL on DOS: 08/29/22 FINDINGS: LIVER: Liver measures up to 16.5 cm. Fatty infiltration of the liver. GALLBLADDER: Negative Wharton's sign was reported by the corporate communications intern. No gallstones. COMMON BILE DUCT: Unremarkable as visualized. No stones. No dilation. Common bile duct measures 0.58 cm in diameter. PANCREAS: Unremarkable as visualized. RIGHT KIDNEY: Right kidney measures up to 10.4 cm. 9 mm calculus in the inferior pole of the right kidney without obstruction. OTHER FINDINGS: . . IMPRESSION: Fatty infiltration of the liver. No convincing evidence of acute cholecystitis. ATED BY: LEOLA PHAN MD DICTATED DATE/TIME: 03/23/25 0701 PATIENT: AMERICA HAINES ACCT: [id number] UNIT: [id number] : 1965 LOC: ER ROOM / BED: / AGE / SEX: 59 / M ADM STATUS: REG ER SERVICE 1527 ORDERING PHYSICIAN: ASA HERNANDEZ DO PROCEDURE(s): ABPL - CT AB PEL WO CON-NO ORAL OR IV REASON: n/v/ abd pain, GI bleed ORDER NUMBER(s): [id number], ACCESSION NUMBER(s): [id number] Exam: CT CT AB PEL WO CON-NO ORAL OR IV History: n/v/ abd pain, GI bleed Comparison Study: CT CT AB PEL WO CON-NO ORAL OR IV on DOS: 02/08/23, CT CT AB PEL WO CON-NO ORAL OR IV on DOS: 01/04/23, CT CT AB PEL WO CON-NO ORAL OR IV on DOS: 12/17/22 TECHNIQUE: Multidetector CT of the abdomen was performed from lung bases to pubic symphysis. Imaging was performed without IV contrast. Axial, coronal and sagittal multiplanar reformats were obtained from the axial data set by the technologist. Radiation Dose Information: CT Dose: CTDI volume is 22.43 mGy. Dose-length product is 1133.51 mGy*cm FINDINGS: Evaluation of solid organs is limited due to lack of intravenous contrast use. Findings: Lung Bases: No acute or significant lung base finding. Normal heart size. No pleural or pericardial effusion. Liver: The liver is normal in size. No focal lesions. Gallbladder and Biliary Tree: Cholelithiasis. Spleen: Unremarkable Pancreas: The pancreas is grossly normal in appearance. Adrenal Glands: Unremarkable Kidneys: Kidneys are grossly normal without calculi or hydronephrosis. Bladder: Grossly unremarkable for degree of distention. Bowel: The stomach is grossly normal in appearance. Small bowel and colon are normal in caliber and distribution. The appendix is not visualized; however, no secondary findings of acute appendicitis identified. Ascites: Absent Lymphadenopathy: No mesenteric, retroperitoneal or periportal lymphadenopathy. Abdominal Wall and Mesentery: Unremarkable. Vasculature: The visualized abdominal aorta is normal in size and caliber. Evaluation of abdominal and pelvic vessels is limited due to lack of intravenous contrast. Pelvic Organs: Unremarkable Musculoskeletal: No aggressive focal bony lesions, acute fractures or dislocation. Soft tissues: Unremarkable IMPRESSION: 1. Cholelithiasis 2. No findings of bowel obstruction. 3. No nephrolithiasis or hydronephrosis Radiation optimization: All CT scans at this facility use at least one of these dose optimization techniques: automated exposure control mA and/or kV adjustment per patient size (includes targeted exams where dose is matched to clinical indication) or iterative reconstruction. ATED BY: VADIM SOLARES Jr. DO DICTATED DATE/TIME: 03/22/25 1754 Laboratory Results Test 03/25/25 11:45 03/25/25 04:59 03/24/25 09:07 03/24/25 00:34 POC Glucose 134 mg/dl (70-106) Sodium Level 144 mmol/L (136-145) Potassium Level 3.7 mmol/L (3.5-5.1) Chloride Level 106 mmol/L (98-107) Carbon Dioxide Level 29 mmol/L (20-31) Anion Gap 9 (5-15) Blood Urea Nitrogen 21 mg/dL (9-23) Creatinine 0.90 mg/dL (0.700-1.30) Glomerular Filtration Rate Calc 97 mL/min (>90) BUN/Creatinine Ratio 23.3 (10.0-20.0) Serum Glucose 106 mg/dL (74-106) Calcium Level 9.7 mg/dL (8.7-10.4) White Blood Count 9.6 10^3/uL (4.4-10.8) Red Blood Count 4.90 10^6/uL (4.5-5.90) Hemoglobin 15.7 g/dL (13.5-17.5) Hematocrit 44.3 % (41.0-53.0) Mean Corpuscular Volume 90.3 fL (80.0-100.0) Mean Corpuscular Hemoglobin 32.1 pg (28.0-32.0) Mean Corpuscular Hemoglobin Concent 35.6 g/dL (32.0-36.0) Red Cell Distribution Width 14.1 % (11.8-14.3) Platelet Count 138 10^3/uL (140-450) Mean Platelet Volume 9.5 fL (6.9-10.8) Neutrophils (%) (Auto) 78.4 % (37.0-80.0) Lymphocytes (%) (Auto) 13.5 % (10.0-50.0) Monocytes (%) (Auto) 7.4 % (0.0-12.0) Eosinophils (%) (Auto) 0.2 % (0.0-7.0) Basophils (%) (Auto) 0.5 % (0.0-2.0) Neutrophils # (Auto) 7.5 10 ^3/uL (1.6-8.6) Lymphocytes # (Auto) 1.3 10 ^3/uL (0.4-5.4) Monocytes # (Auto) 0.7 10 ^3/uL (0-1.3) Eosinophils # (Auto) 0 10 ^3/uL (0-0.8) Basophils # (Auto) 0 10 ^3/uL (0-0.2) Nucleated Red Blood Cells 0.0 % Phosphorus Level 2.3 mg/dL (2.4-5.1) Triglycerides Level 129 mg/dL (< 150) Cholesterol Level 130 mg/dL (< 200) LDL Cholesterol 67 mg/dL (< 100) HDL Cholesterol 36 mg/dL (40-59) Amylase Level 24 U/L (30-118) Magnesium Level 2.2 mg/dL (1.6-2.6) Test 03/23/25 05:04 03/22/25 22:20 03/22/25 21:09 03/22/25 19:50 Total Bilirubin 0.7 mg/dL (0.2-1.0) Aspartate Amino Transferase (AST) 10 U/L (13-40) Alanine Aminotransferase (ALT) 13 U/L (7-40) Alkaline Phosphatase 83 U/L (46-116) Total Protein 7.3 g/dL (5.7-8.2) Albumin 4.6 g/dL (3.2-4.8) Urine Color Light-yellow (Yellow) Urine Clarity Clear (Clear) Urine pH 5.0 (5.0-9.0) Urine Specific Blaine 1.028 (1.001-1.035) Urine Protein Trace (Negative) Urine Ketones 4+ (Negative) Urine Blood Trace /uL (Negative) Urine Nitrite Negative (Negative) Urine Bilirubin Negative (Negative) Urine Urobilinogen Normal mg/dL (Negative) Urine Leukocyte Esterase Negative /uL (Negative) Urine RBC 1 /hpf (0 - 3) Urine Microscopic WBC < 1 /HPF (0-3) Urine Squamous Epithelial Cells None seen /hpf (<5) Urine Bacteria None seen /hpf (None Seen) Urine Mucus Few (None Seen) Urine Glucose 4+ mg/dL (Normal) Urine Opiates Screen Neg (NEGATIVE) Urine Fentanyl Screen Pos (NEGATIVE) Urine Barbiturates Screen Neg (NEGATIVE) Urine Phencyclidine Screen Neg (NEGATIVE) Urine Amphetamines Screen Neg (NEGATIVE) Urine Benzodiazepines Screen Neg (NEGATIVE) Urine Cocaine Screen Neg (NEGATIVE) Urine Cannabinoids Screen Neg (NEGATIVE) Blood Gas Specimen Type Arterial Blood Gas Sample Site Right radial Blood Gas Patient Temperature 37.0 Arterial Blood Date Drawn [id number] Arterial Blood pH 7.316 (7.350-7.450) Arterial Blood Partial Pressure CO2 30.6 mmHg (35.0-48.0) Arterial Blood Partial Pressure O2 79.2 mmHg (83.0-108.0) Arterial Blood HCO3 15.3 mmol/L (21.0-28.0) Arterial Blood Oxygen Saturation 94.3 % (94.0-98.0) Arterial Blood Base Excess -9.3 mmol/L (-2.0-3.0) Arterial Blood Oxyhemoglobin 91.8 % (94.0-98.0) Arterial Blood Carboxyhemoglobin 2.0 % (0.5-1.5) Arterial Blood Methemoglobin 0.6 % (0.0-1.5) Aleks Test Modified Blood Gas Total Hemoglobin 17.00 g/dL (13.5-17.5) Blood Gas Liter Flow 0.00 Blood Gas Modality Room air Blood Gas Spontaneous Rate 18 FiO2 % 21.0 Specimen Drawn By L lennon rt Blood Gas Comments Room air abg Lactic Acid Level 2.8 mmol/L (0.4-2.0) Troponin I High Sensitivity 8 ng/L (</=54) Test 03/22/25 17:01 Prothrombin Time 11.1 sec (9.3-11.8) Prothrombin Time INR 1.05 (0.9-1.15) Activated Partial Thromboplast Time 27.9 SEC (24.5-34.5) Hemoglobin A1c 8.2 % A1C (<5.7) Lipase 25 U/L (12-53) Beta-Hydroxybutyric Acid > 4.500 mmol/L (< 0.4) Other Laboratory Tests 03/25/25 04:59 03/24/25 09:07 Brief Hx & Hospital Course: History of Present Illness Patient is a 59-year-old male with a past medical history of coronary artery disease, [place] s/p PCI, hypertension, 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 Patient reported that today he started to have abdominal pain and associated vomiting which was coffee-ground in color, multiple episodes. Patient reported associated epigastric abdominal pain which was nonradiating, constant and severe in intensity. Patient has a history of upper GI bleed in April of 2024 when an EGD was done which showed hiatal hernia with a grade C linear erosive esophagitis with distal esophageal ulcers extending 10 cm above the GE junction and gastroduodenitis with multiple duodenal ulcers and gastric erosions thrombus biopsies were taken and patient was discharged on PPI and Carafate. He reported he did not have any episode of GI bleed and did not notice any melena since then. Patient denied smoking, alcohol but admitted to smoking marijuana about 2 to 3 times a week. Patient denies any history of chronic liver disease. He also reported dysphagia to food since the last 2-3 days. 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 and 15 units t.i.d. with meals, carvedilol 6.25 b.i.d., hydralazine 25 t.i.d., lisinopril/hydrochlorothiazide, amlodipine 10, gabapentin 800 t.i.d. Brief Hospital Stay Patient is a 59-year-old male with significant medical history including coronary artery disease, [place] s/p PCI, hypertension, stomach ulcer insulin- dependent type 2 diabetes mellitus with neuropathy presented to the ED on 02/19/2025 with a chief complaint of intractable abdominal pain and vomiting. Urine and lab works showed evidence of DKA and starvation ketosis. Patient was started on iv fluids( N/S), insulin drip and electrolytes corrected. Once the anion gap was closed, insulin changed to Lantus 50 unit at night and moderate sliding scale. On admission, patient was also noted for coffee ground emesis. GI saw patient and had a repeat EGD which shows 3 cm sliding-type hiatal hernia with grade a erosive esophagitis, significantly improved from previous endoscopy and Mild antral gastritis with pre-pyloric antral gastric erosions otherwise normal examination up to the 2nd and 3rd part of the duodenum with no fresh or old blood in the stomach. Whilst on admission, patients other chronic medical condition were also address and managed. On examination today, patient is stable. Blood sugar stable and electrolytes are within expected range. Overall, patient is stable and will be discharge today. Review of system Constitutional: Denies fever no chills no feeling of malaise HEENT: Denies headache, ear pain, ear discharges, conjunctivitis, nasal discharge throat pain Cardiovascular: Denies chest pain, palpitation, orthopnea, PND, or pedal edema Respiratory: Denies shortness of breath, cough cough, sputum production, hemoptysis, GI: Denies abdominal pain, nausea, vomiting, diarrhea, hematemesis, hematochezia, : Denies frequency, urgency, hematuria, Endocrine: Denies unintentional weight gain or weight loss, feeling of hot flashes, Sinan: Denies easy bruising, bleeding disorders, epistaxis Musculoskeletal: Denies joint pains, muscle aches Psych: No evidence of depression, ashleigh, suicidal ideation Examination General Appearance: Alert, Oriented X3, Cooperative, No acute distress HEENT: Atraumatic, PERRLA, EOMI, Mucous membrane moist/pink Respiratory: Clear to auscultation, Normal air movement Cardiovascular: Regular rate, Normal S1, Normal S2, No murmurs, no chest wall tenderness Abdominal: NO distention, no tenderness, bowel sounds present, no scars noted Extremities: No clubbing, No cyanosis, No edema, Normal pulses, No tenderness/swelling Skin: No rashes, No breakdown, No significant lesion Neuro: Normal gait, Normal speech, Strength at 5/5 X4 ext, Normal tone, Sensation intact, Cranial nerves 3-12 NL, Reflexes 2+ Psych/Mental Status: Mental status NL, Mood NL Diagnoses Diabetic ketoacidosis, [id number] likely Starvation ketosis Insulin dependent diabetes diagnosed 1994 Hypertensive heart disease Hypertensive urgency History [place] S/P PCI Pulmonary Edema Acute respiratory failure Metabolic acidosis with respiratory compensation Upper GI bleed likely from a bleeding ulcer H/O esophageal ulcers, duodenal ulcers, gastroduodenitis Fatty infiltration of the liver. Cholelithiasis, No findings of bowel obstruction. Ketonuria Glucosuria metabolic acidosis with respiratory compensation Hypernatremia Hyperchloremia Leukocytosis, no source identified yet Scattered scabs on his lower extremities, dry Obesity grade 2, BMI 35.2 Discharge plans Continue home medications follow up at the discharge clinic in 7 days Follow up with PCP / Endocrinology for medication evaluation Diabetes education given Medication adherences education Discharge plan discussed with Dr. Washington Consults/Reason for consult GI consult: Chief Complaint: Coffee-ground emesis Operations or Procedures Operative Report DATE OF OPERATION: 03/25/25 PROCEDURE: Upper Endoscopy with biopsy. PREOPERATIVE INDICATION: The patient is a 59 -year-old male undergoing endoscopy for chronic GERD and coffee-ground emesis POSTOPERATIVE DIAGNOSES: 1. 3 cm sliding-type hiatal hernia with grade a erosive esophagitis, significantly improved from previous endoscopy 2. Mild antral gastritis with pre-pyloric antral gastric erosions otherwise normal examination up to the 2nd and 3rd part of the duodenum with no fresh or old blood in the stomach PROCEDURE PERFORMED BY: Shirlene Garcia GI NURSE: Clari SCOPE: Olympus videoendoscope. ASA CLASS: 2 PREOPERATIVE MEDICATIONS: Mac sedation, Christopher Henry PROCEDURE IN DETAIL: After obtaining an informed consent, the patient was placed on left lateral decubitus position. The patient was then sedated with the above medications. A bite block was placed between his teeth. The endoscope was then passed through the oropharynx, into the esophagus, and through the stomach and pylorus up to the second and third part of the duodenum. The endoscope was then withdrawn. Second and 3rd part of the duodenum and the duodenal bulb were normal. Duodenal biopsies were obtained. The pre-pyloric area antrum and body showed mild gastritis with hyperemia erythema and superficial erosions On retroflexion the fundus cardia and angularis were normal. There was no fresh or old blood in the GI tract. The endoscope was then withdrawn into the distal esophagus where he had a 3-4 cm sliding-type hiatal hernia with grade a erosive esophagitis GE junction biopsies were obtained. The remaining distal proximal esophagus were normal. The endoscopic appearance was improved from previous or last endoscopy The patient tolerated the procedure well without difficulty. COMPLICATIONS : None SPECIMENS: Duodenal Biopsies Gastric biopsies GE junction biopsies DISPOSITION: Transfer back to the floor Stable PLAN: 1. Await for biopsy result 2. Continue Protonix 40 mg p.o. twice a day 3. Carafate 1 g p.o. twice a day 4. Resume soft mechanical diet advance as tolerated 5. Outpatient follow up with me in 4-6 weeks to review results and discuss elective colonoscopy, patient is cleared for discharge from GI point of view SHIRLENE GARCIA MD Mar 25, 2025 11:17 DICTATED BY:SHIRLENE GARCIA MD DICTATED DATE/TIME:03/25/25 1117 Condition at Discharge: Good Final Diagnosis/Problems List Diabetic ketoacidosis, fzolzjvg-xo-ijzomh likely Starvation ketosis Insulin dependent diabetes diagnosed 1994 Hypertensive heart disease Hypertensive urgency History [place] S/P PCI Pulmonary Edema Acute respiratory failure Metabolic acidosis with respiratory compensation Upper GI bleed likely from a bleeding ulcer H/O esophageal ulcers, duodenal ulcers, gastroduodenitis Fatty infiltration of the liver. Cholelithiasis, No findings of bowel obstruction. Ketonuria Glucosuria metabolic acidosis with respiratory compensation Hypernatremia Hyperchloremia Leukocytosis, no source identified yet Scattered scabs on his lower extremities, dry Discharge Disposition: Home Discharge Instruct/Medications Diet: See Comment Diet comment: Diabete diets Activity: No Restrictions, As Tolerated Follow Up/Referral: Discharge clinic in 7 days Medications: Continue home medication Discharge Statement: "Patient was advised to return to the ER or call 911 if any headaches, dizziness, shortness of breath, chest pain, abdominal pain, bleeding, fevers, or worsening of medical condition. Patient was counseled about treatment plan, medications, possible side effects, patientverbalized understanding. All questions were answered to the best of my ability. This discharge took greater then 30 minutes in planning, reviewing documentation, counseling the patient, and discussing with other team members." ASSESSMENT ASSESSMENT Assessment Diabetic ketoacidosis, bljcdouc-fo-jmeihb likely Starvation ketosis Insulin dependent diabetes diagnosed 1994 Hypertensive heart disease Hypertensive urgency History [place] S/P PCI Pulmonary vascular congestion Acute respiratory failure Metabolic acidosis with respiratory compensation Upper GI bleed likely from a bleeding ulcer H/O esophageal ulcers, duodenal ulcers, gastroduodenitis Fatty infiltration of the liver. Cholelithiasis, No findings of bowel obstruction. Ketonuria Glucosuria metabolic acidosis with respiratory compensation Hypernatremia Hyperchloremia Leukocytosis, no source identified yet Scattered scabs on his lower extremities, dry Date of Service: Mar 25, 2025 Billing Provider: ESSENCE WASHINGTON MD Common Visit Codes: NOT BILLABLE LUIZ ISAACS RESIDENT Mar 25, 2025 15:12 ESSENCE WASHINGTON MD Mar 26, 2025 14:49
[2025-03-25] MEDS: GABAPENTIN 400 MG CAP PO SCH (15:25)
[2025-03-25] MEDS ORDERED: ATORVASTATIN 20 MG TAB PO SCH (22:00)
== END 2025-03-25 16:08 | disposition home or self-care (01) | DRG 420 ==
LOC: EDBD 15:10 → ER 15:35 → OVERFLOW 20:52 → TELE-CENTR 03-24 14:32
PROVIDERS: ADMIT Internal Medicine Pulmonary Disease; ATTEND Internal Medicine Pulmonary Disease
PROC: 0DB68ZX Excision of Stomach, Via Natural or Artificial Opening Endoscopic, Diagnostic (ICD-10-PCS; 2025-03-25)
PROC: 0DB48ZX Excision of Esophagogastric Junction, Via Natural or Artificial Opening Endoscopic, Diagnostic (ICD-10-PCS; 2025-03-25)
PROC: 0DB98ZX Excision of Duodenum, Via Natural or Artificial Opening Endoscopic, Diagnostic (ICD-10-PCS; principal; 2025-03-25 10:26)
DX: E11.10 Type 2 diabetes mellitus with ketoacidosis without coma (principal); J96.00 Acute respiratory failure, unspecified whether with hypoxia or hypercapnia; K22.11 Ulcer of esophagus with bleeding; K25.4 Chronic or unspecified gastric ulcer with hemorrhage; D69.6 Thrombocytopenia, unspecified; J81.1 Chronic pulmonary edema; E87.0 Hyperosmolality and hypernatremia; K29.71 Gastritis, unspecified, with bleeding; E11.40 Type 2 diabetes mellitus with diabetic neuropathy, unspecified; D72.829 Elevated white blood cell count, unspecified; E78.5 Hyperlipidemia, unspecified; I25.10 Atherosclerotic heart disease of native coronary artery without angina pectoris; I16.0 Hypertensive urgency; K44.9 Diaphragmatic hernia without obstruction or gangrene; K21.9 Gastro-esophageal reflux disease without esophagitis; I50.9 Heart failure, unspecified; I11.0 Hypertensive heart disease with heart failure; K76.0 Fatty (change of) liver, not elsewhere classified; K80.20 Calculus of gallbladder without cholecystitis without obstruction; E87.8 Other disorders of electrolyte and fluid balance, not elsewhere classified; R23.4 Changes in skin texture; T73.0XXA Starvation, initial encounter; Z95.5 Presence of coronary angioplasty implant and graft; Z79.4 Long term (current) use of insulin; Z79.899 Other long term (current) drug therapy; Z87.19 Personal history of other diseases of the digestive system; X58.XXXA Exposure to other specified factors, initial encounter
CPT/HCPCS: 36415; 36600; 43239; 71045; 74176; 76705; 80048; 80053; 80061; 80307; 81001; 82010; 82150; 82805; 82962; 83036; 83605; 83690; 83735; 84100; 84484; 85014; 85018; 85025; 85610; 85730; 86850; 86900; 86901; 93005; 96365; 96372; 96375; 99291; G0378; J1815; J2003; J2405; J2470; J2543; J2704; J3480